=== PATIENT | male | born 1940 | race Caucasian/White ===

== ENCOUNTER → 2018-01-20 10:06 | Outpatient (POV) | payer MEDICARE, OTHER, SELFPAY ==
--- NOTE | 2018-01-20 10:34 | CT_ITS ---
CT chest wo con HISTORY: Shortness of air, interstitial lung disease, follow-up pulmonary nodule ITS.REASON: INTERSTITIAL LUNG DZ ORDERING PHYSICIAN: Ho Luna MD PATIENT AGE: 77 years TECHNIQUE: Axial images obtained. Sagittal and coronal reformatted images are also generated and reviewed. High-resolution axial images also obtained. CONTRAST: None COMPARISON: 01/30/2017 FINDINGS: Prior CABG. No mediastinal or hilar mass or adenopathy. Coronary artery calcifications are present. Centrilobular emphysematous changes are present with hyperinflation and bronchial thickening as before. There is mild peripheral intralobular septal thickening with mild fibrotic changes in the lung bases. Thickening is noted along the major fissure on the right as before. 6 mm plaque-like nodular opacity once again noted in the left lobe unchanged. No bronchiectasis. No pleural effusions. No acute bony anomalies. IMPRESSION: 1. Overall stable CT appearance of the chest with centrilobular emphysema/COPD. 2. Chronic interstitial changes with mild interstitial fibrosis not significant change. 3. No change 6 mm left upper lobe nodular opacity
[2018-01-20 12:18] LABS: Basophils # 0.1 K/mm3 (0-0.2); Basophils % 0.7 % (0.1-2.0); Eosinophils # 0.2 K/mm3 (0.0-0.4); Eosinophils % 2.8 % (0.1-12.0); Hematocrit 47.1 % (42.0-52.0); Hemoglobin 14.9 g/dL (14.1-18.0); Lymphocytes # 1.2 K/mm3 (0.7-4.5); Lymphocytes % 15.6 K/mm3 (10-50); Mean Corpuscular HGB Conc 31.6 g/dL (31.8-35.4); Mean Corpuscular Hemoglobin 29.3 pg (27.0-31.2); Mean Corpuscular Volume 92.8 fl (80-94); Mean Platelet Volume 8.5 fl (7.4-10.4); Monocytes # 0.4 K/mm3 (0.1-1.0); Monocytes % 5.5 % (1.7-9.3); Neutrophils # 5.8 K/mm3 (1.8-7.8); Neutrophils % 75.4 % (37.0-80.0); Platelet Count 289 K/mm3 (142-424); Red Blood Count 5.08 M/mm3 (4.60-6.20); Red Cell Distribution Width 13.8 % (11.5-17.5); White Blood Count 7.7 K/mm3 (4.8-10.8)
[2018-01-21 09:19] LABS: Iron 94 ug/dL (38-169); UIBC 308 ug/dL (111-343)
[2018-01-22 12:01] LABS: Iron Saturation 23 % (15-55)
== END ==
PROVIDERS: Family Provider Family Medicine; Visit Provider Internal Medicine
DX: D50.0 Iron deficiency anemia secondary to blood loss (chronic) (principal); J84.9 Interstitial pulmonary disease, unspecified; R06.02 Shortness of breath
CPT/HCPCS: 36415; 71250; 83550; 85025

== ENCOUNTER → 2018-01-30 09:33 | Outpatient (CLI) | payer MEDICARE, OTHER, SELFPAY ==
[2018-01-30 10:47] VITALS: PULSE 90
[2018-01-30 11:15] VITALS: BP 116/73; PULSE 74; RESP 18; O2SAT 93
[2018-01-30 11:30] VITALS: BP 139/69; PULSE 105; RESP 28; O2SAT 94
== END ==
PROVIDERS: Family Provider Family Medicine; Visit Provider Internal Medicine
DX: J84.9 Interstitial pulmonary disease, unspecified (principal)
CPT/HCPCS: 94060; 94618; 94640; 94726; 94729

== ENCOUNTER → 2018-05-26 10:00 | Outpatient (POV) | payer MEDICARE, OTHER, SELFPAY | PROVIDERS: Family Provider Family Medicine; Visit Provider Internal Medicine | DX: Z00.00 Encounter for general adult medical examination without abnormal findings (principal) ==

== ENCOUNTER 2018-09-08 13:41 | Observation (INO) ==
--- NOTE | 2018-09-08 13:51 | Emergency Department Note ---
ED Disposition Clinical Impression: Rapid atrial fibrillation, Upper GI bleed Disposition: Still a Patient Condition on Discharge: Good Referrals: Blayne Gonzalez MD [Primary Care Provider] - - Critical Care Critical Care Time: No Attestation: On 09/08/18, the high probability of a clinically significant, sudden or life threatening deterioration of the following system(s) required my full and direct attention, intervention and personal management. The time I documented below is in addition to time spent performing reported procedures but includes the following listed in this critical care notation. Medical Decision Making - [place] Inquiry Pt receiving controlled substance: No Vital Signs: 09/08/18 13:51 09/08/18 14:21 09/08/18 14:58 Temperature 97.4 F L Temperature Source Oral Pulse Rate [Left Radial] 86 119 H 122 H Respiratory Rate 18 Blood Pressure [Right Arm] 157/68 H 130/57 L 129/68 Blood Pressure Mean [Right Arm] 97 81 88 Blood Pressure Source [Right Arm] Automatic Cuff Automatic Cuff Automatic Cuff Blood Pressure Position [Right Arm] Sitting Sitting Sitting 02 Sat by Pulse Oximetry 95 93 L 94 L Oxygen Delivery Method Room Air - Lab Data Lab Results 09/08/18 14:00: WBC 9.5, RBC 4.61, Hgb 13.4 L, Hct 41.6 L, MCV 90.3, MCH 29.1, MCHC 32.3, RDW 13.9, Plt Count 388, MPV 8.3, Neut % (Auto) 81.8 H, Lymph % (Auto) 10.0, [place] % (Auto) 4.5, Eos % (Auto) 2.8, Baso % (Auto) 0.9, Neut # (Auto) 7.8, Lymph # (Auto) 1.0, [place] # (Auto) 0.4, Eos # (Auto) 0.3, Baso # (Auto) 0.1 09/08/18 14:00: Sodium 138, Potassium 4.3, Chloride 101, Carbon Dioxide 25, Anion Gap 16.3 H, BUN 18, Creatinine 1.07, Estimated Creat Clear 107, Estimated GFR 67, Est GFR ( Amer) 82, Glucose 127 H, Calcium 9.0, Total Bilirubin 0.4, AST 26, ALT 37, Alkaline Phosphatase 82, Total Protein 6.9, Albumin 3.1 L, Globulin 3.8 H, Albumin/Globulin Ratio 0.8 L 09/08/18 14:01: Stool Occult Blood Positive A Result diagrams: 09/08/18 14:00 09/08/18 14:00 Orders (Tests/Meds): ED MEDICATIONS Generic Name Dose Route Start Last Admin Trade Name Freq PRN Reason Stop Dose Admin Diltiazem HCl 100 mg/ Sodium 100 mls @ 5 mls/hr 09/08/18 14:35 Chloride IV 10/08/18 14:34 .Q20H PETE Protocol Discontinued Medications Generic Name Dose Route Start Last Admin Trade Name Freq PRN Reason Stop Dose Admin Diltiazem HCl 10 mg 09/08/18 14:20 Cardizem 25mg/5ml Vial IV 09/08/18 14:21 ONCE ONE ORDERS Category Date Time Status XR chest portable Stat Exams 09/08/18 14:33 Taken Occult Blood,Stool Stat Lab 09/08/18 14:01 Ordered Troponin I Stat Lab 09/08/18 14:33 Ordered 12-lead EKG Request [ECG Request by /Nse] Stat Y 09/08/18 13:47 Stop Req - Radiology Data #1 Image(s): Chest Image Reviewed: Yes I reviewed the patient's radiology image Scarring left base, no acute disease - ECG Data Tracing #1 EKG interpreted by Gurpreet Saucedo MD: Rhythm: Atrial fibrillation with rapid ventricular response Rate: 126 [place]: normal Ectopy: none Conduction: normal ST Segment Changes: none T Wave Changes: none Q Waves: none No evidence of acute ischemia or injury - Physician Consults Physician Consulted: Carlos Time: 15:02 Reason -: Admission Comment/Response: Agrees to admit the patient to the hospital. We discussed the patient's clinical information, including history, exam, laboratory and radiology results and ED course. Per hospital procedure, I will write temporary bridge inpatient orders on the patient. Specific orders requested by the admitting physician: Continue Cardizem drip. Protonix bolus, but no drip. Follow H&H. General Adult HPI - General Stated complaint: black stool Time Seen by Provider: 09/08/18 13:59 - History of Present Illness HPI narrative: Had an episode of black stool this morning with pink toilet water. No abdominal pain, vomiting, hematemesis. History of a GI bleed about the, states they never figured out where the bleeding was coming from. Currently his only blood thinner is aspirin. - Related Data Home Medications Medication Instructions Recorded Confirmed Atorvastatin Calcium [Atorvastatin 80 mg PO HS 09/08/18 09/08/18 80mg Tab] Famotidine [Acid Controller] 20 mg PO DAILY 09/08/18 09/08/18 Fenofibrate,Micronized [Tricor 134 mg PO DAILY 09/08/18 09/08/18 145mg] Furosemide [Furosemide 20mg Tab] 20 mg PO DAILY 09/08/18 09/08/18 Lisinopril [Lisinopril 10mg Tab] 10 mg PO BID 09/08/18 09/08/18 Loratadine [Allergy] 10 mg PO DAILY 09/08/18 09/08/18 Metoprolol Tartrate [Lopressor 25 mg PO BID 09/08/18 09/08/18 25mg tablet] Omeprazole [Omeprazole 20mg 20 mg PO DAILY 09/08/18 09/08/18 Capsule] Sour Koroma Extract [Tart Koroma 1,200 mg PO DAILY 09/08/18 09/08/18 Extract] dilTIAZem HCl [Cartia Xt] 240 mg PO DAILY 09/08/18 09/08/18 Allergies Allergy/AdvReac Type Severity Reaction Status Date / Time Penicillins Allergy Unknown UNKNOWN Verified 09/08/18 14:36 [facility] History I have reviewed the patient's past medical history: Yes ROS Obtained: Yes All systems reviewed & no additional complaints - Constitutional Constitutional: Denies fever(s) - Cardiovascular Cardiovascular: Denies chest pain - Respiratory Respiratory: Yes dyspnea (Chronic) - Gastrointestinal Gastrointestingal: Reports: black, tarry stools. Denies: abdominal pain, vomiting blood, nausea, vomiting Physical Exam - General General appearance: alert, in no apparent distress - Head Head exam: atraumatic, normocephalic, normal inspection - Eye Eye exam: Present: normal appearance, PERRL, EOMI - ENT ENT exam: Present: mucous membranes moist - Neck Neck exam: Present: normal inspection, full ROM, trachea midline. Absent: meningismus, lymphadenopathy - Chest Chest inspection: Present: normal inspection, symmetric chest wall rise. Absent: tenderness - Respiratory Respiratory exam: Present: normal lung sounds bilaterally. Absent: respiratory distress - Cardiovascular Cardiovascular exam: Present: regular rate. Absent: JVD - Abdominal Exam Abdominal exam: Present: soft, normal bowel sounds. Absent: distention, tenderness, guarding - Rectal Exam comment: Stool dark brown, no masses - Extremities Exam Extremities exam: Present: normal inspection, normal capillary refill - Neurological Exam Neurological exam: Present: alert, oriented X3 - Psychiatric Psychiatric exam: Present: normal affect, normal mood - Skin Skin exam: Present: warm, dry, intact, normal color
[2018-09-08 14:11] LABS: Basophils # 0.1 K/mm3 (0-0.2); Basophils % 0.9 % (0.1-2.0); Eosinophils # 0.3 K/mm3 (0.0-0.4); Eosinophils % 2.8 % (0.1-12.0); Hematocrit 41.6 % (42.0-52.0); Hemoglobin 13.4 g/dL (14.1-18.0); Mean Corpuscular HGB Conc 32.3 g/dL (31.8-35.4); Mean Corpuscular Hemoglobin 29.1 pg (27.0-31.2); Mean Corpuscular Volume 90.3 fl (80-94); Mean Platelet Volume 8.3 fl (7.4-10.4); Monocytes # 0.4 K/mm3 (0.1-1.0); Monocytes % 4.5 % (1.7-9.3); Neutrophils # 7.8 K/mm3 (1.8-7.8); Neutrophils % 81.8 % (37.0-80.0); Platelet Count 388 K/mm3 (142-424); Red Blood Count 4.61 M/mm3 (4.60-6.20); Red Cell Distribution Width 13.9 % (11.5-17.5); White Blood Count 9.5 K/mm3 (4.8-10.8)
[2018-09-08 14:23] LABS: Albumin Level 3.1 gm/dL (3.4-5.0); Albumin/Globulin Ratio 0.8 (1.1-1.8); Anion Gap 16.3 mEq/L (5-15); Bilirubin,Total 0.4 mg/dL (0.2-1.0); Globulin 3.8 gm/dl (1.3-3.2); Potassium 4.3 mmoL/L (3.5-5.1); Total Protein,Serum 6.9 gm/dL (6.4-8.2)
--- NOTE | 2018-09-08 16:28 | History & Physical Report ---
*Admission Date: 09/08/18 *Chief complaint: Blood in stool *History of present illness: 77-year-old male with history of atrial fibrillation presented to the emergency department after having he describes as a very dark loose stool with associated pink discoloration of the toilet water earlier today. Patient was actually in his normal state of health when he felt an urgency to have a bowel movement with stool as previously described. This was followed by rather sudden onset of weakness and malaise. He was advised to come to the emergency department where patient was found to have heme positive stool and atrial fibrillation with rapid ventricular response of 120 bpm. Patient has known atrial fibrillation and has undergone left atrial appendage closure and takes aspirin. He has been placed on a Cardizem drip and currently his heart rate has decreased to high 90s and low 100s. He has been admitted for serial hemoglobins and vital sign monitoring. 4 years ago patient had an admission to the hospital for presumed GI bleed. He underwent his esophagogastroduodenoscopy and colonoscopy without findings of active bleeding. 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 [facility] History I have reviewed the patient's past medical history: Yes Medical History: Reports:: Atrial Fibrillation, Cancer (Prostate), Hyperlipidemia - *Social History Smoking Status: Former smoker Alcohol Intake: never - Psychiatric History Expresses thoughts of harming self/others: None Suicide Plan Description: No Plan Review of Systems - Review of Systems Review of systems:: pertinent systems reviewed and negative unless documented below Meds Home Medications Medication Instructions Recorded Confirmed Type Atorvastatin Calcium [Atorvastatin 80 mg PO HS 09/08/18 09/08/18 History 80mg Tab] Famotidine [Acid Controller] 20 mg PO DAILY 09/08/18 09/08/18 History Fenofibrate,Micronized [Tricor 134 mg PO DAILY 09/08/18 09/08/18 History 145mg] Furosemide [Furosemide 20mg Tab] 20 mg PO DAILY 09/08/18 09/08/18 History Lisinopril [Lisinopril 10mg Tab] 10 mg PO BID 09/08/18 09/08/18 History Loratadine [Allergy] 10 mg PO DAILY 09/08/18 09/08/18 History Metoprolol Tartrate [Lopressor 25 mg PO BID 09/08/18 09/08/18 History 25mg tablet] Omeprazole [Omeprazole 20mg 20 mg PO DAILY 09/08/18 09/08/18 History Capsule] Sour Koroma Extract [Tart Koroma 1,200 mg PO DAILY 09/08/18 09/08/18 History Extract] dilTIAZem HCl [Cartia Xt] 240 mg PO DAILY 09/08/18 09/08/18 History Allergies Allergy/AdvReac Type Severity Reaction Status Date / Time Penicillins Allergy Unknown UNKNOWN Verified 09/08/18 14:36 Exam Vital signs and Labs for Last 24 Hours: Temp Pulse Resp BP Pulse Ox 97.4 F L 109 H 20 112/52 L 94 L 09/08/18 13:51 09/08/18 16:00 09/08/18 16:00 09/08/18 16:00 09/08/18 16:00 Laboratory Results - last 24 hr 09/08/18 14:00: WBC 9.5, RBC 4.61, Hgb 13.4 L, Hct 41.6 L, MCV 90.3, MCH 29.1, MCHC 32.3, RDW 13.9, Plt Count 388, MPV 8.3, Neut % (Auto) 81.8 H, Lymph % (Auto) 10.0, [place] % (Auto) 4.5, Eos % (Auto) 2.8, Baso % (Auto) 0.9, Neut # (Auto) 7.8, Lymph # (Auto) 1.0, [place] # (Auto) 0.4, Eos # (Auto) 0.3, Baso # (Auto) 0.1 09/08/18 14:00: Sodium 138, Potassium 4.3, Chloride 101, Carbon Dioxide 25, Anion Gap 16.3 H, BUN 18, Creatinine 1.07, Estimated Creat Clear 107, Estimated GFR 67, Est GFR ( Amer) 82, Glucose 127 H, Calcium 9.0, Total Bilirubin 0.4, AST 26, ALT 37, Alkaline Phosphatase 82, Total Protein 6.9, Albumin 3.1 L, Globulin 3.8 H, Albumin/Globulin Ratio 0.8 L 09/08/18 14:01: Stool Occult Blood Positive A I & O for Last 24 hours: Intake & Output 10/21/18 10/22/18 10/23/18 10/24/18 11:59 11:59 11:59 11:59 Weight 280 lb Narrative: Patient does not appear to be in any distress. He has mild increase in respiratory rate and is chronically short of breath. Oropharynx is moist. Neck is without lymphadenopathy or jugular venous distention. Lungs are clear to auscultation. Heart rate is irregularly irregular. Abdomen is obese, soft, nontender, nondistended. Patient has warm extremities with intact active range of motion. Assessment and Plan (1) Upper GI bleed Current visit: Yes Status: Acute Category: Medical Code(s): K92.2 - Gastrointestinal hemorrhage, unspecified (2) Rapid atrial fibrillation Current visit: Yes Status: Acute Category: Medical Code(s): I48.91 - Unspecified atrial fibrillation (3) Essential hypertension Current visit: Yes Status: Chronic Category: Medical Code(s): I10 - Essential (primary) hypertension (4) Dyspnea Current visit: Yes Status: Chronic Category: Medical Code(s): R06.00 - Dyspnea, unspecified - Assessment and plan all Dx Assessment and Plan for all problems:: 1. Admit patient for serial H&H's. If patient has significant drop in H&H over night and into the morning, surgical consult will be ordered for EGD. 2. Patient has been given Cardizem bolus and is now on a Cardizem drip for atrial fibrillation. Will increase his metoprolol to 50 mg twice daily. Give additional oral Cardizem as well. Consult cardiology in a.m. if patient remains significantly tachycardic. 1 3. Home medications, decrease dose of lisinopril to avoid hypotension
[2018-09-08 18:46] LABS: Hematocrit 37.2 % (42.0-52.0)
[2018-09-08 19:01] LABS: Hemoglobin 11.9 g/dL (14.1-18.0)
[2018-09-09 06:12] LABS: Basophils % 0.5 % (0.1-2.0); Eosinophils # 0.3 K/mm3 (0.0-0.4); Eosinophils % 3.7 % (0.1-12.0); Hematocrit 35.8 % (42.0-52.0); Hemoglobin 11.3 g/dL (14.1-18.0); Lymphocytes # 1.1 K/mm3 (0.7-4.5); Lymphocytes % 14.2 K/mm3 (10-50); Mean Corpuscular HGB Conc 31.5 g/dL (31.8-35.4); Mean Corpuscular Hemoglobin 28.6 pg (27.0-31.2); Mean Corpuscular Volume 90.7 fl (80-94); Mean Platelet Volume 8.1 fl (7.4-10.4); Monocytes # 0.4 K/mm3 (0.1-1.0); Monocytes % 5.1 % (1.7-9.3); Neutrophils % 76.4 % (37.0-80.0); Platelet Count 298 K/mm3 (142-424); Red Blood Count 3.95 M/mm3 (4.60-6.20); White Blood Count 7.8 K/mm3 (4.8-10.8)
[2018-09-09 06:31] LABS: Anion Gap 10.2 mEq/L (5-15); Calcium 8.5 mg/dL (8.5-10.1); Potassium 4.2 mmoL/L (3.5-5.1)
--- NOTE | 2018-09-09 07:26 | Discharge Summary ---
General - General Admission date:: 09/08/18 HPI HPI: 77-year-old male with history of atrial fibrillation presented to the emergency department after having he describes as a very dark loose stool with associated pink discoloration of the toilet water earlier today. Patient was actually in his normal state of health when he felt an urgency to have a bowel movement with stool as previously described. This was followed by rather sudden onset of weakness and malaise. He was advised to come to the emergency department where patient was found to have heme positive stool and atrial fibrillation with rapid ventricular response of 120 bpm. Patient has known atrial fibrillation and has undergone left atrial appendage closure and takes aspirin. He has been placed on a Cardizem drip and currently his heart rate has decreased to high 90s and low 100s. He has been admitted for serial hemoglobins and vital sign monitoring. 4 years ago patient had an admission to the hospital for presumed GI bleed. He underwent his esophagogastroduodenoscopy and colonoscopy without findings of active bleeding. 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 Hospital Course Hospital Course: Patient was admitted on a Cardizem drip. By the evening of admission this was discontinued as patient's heart rate had decreased to the 70s and 80s and he was given oral Cardizem and metoprolol. Overnight the patient converted to a sinus rhythm which he maintained at discharge. In regards to GI bleeding serial H&H's were performed. Initial hemoglobin was 13.4 which dropped slightly to 11.9 and on the morning of discharge to 11.3. Patient had another bowel movement described as dark brown. Aspirin was held. Diet was advanced. Patient tolerated this. Patient was discharged home and will follow-up in my office in 48 hours for repeat CBC. Suspect source of bleeding was that previously seen AVM in the transverse colon or possibly a diverticular bleed. He will hold aspirin indefinitely Objective Vital signs: Temp Pulse Resp BP Pulse Ox 97.6 F 84 19 148/73 H 98 09/08/18 20:00 09/09/18 06:00 09/08/18 22:00 09/09/18 06:00 09/09/18 06:00 Results Completed studies during hospitalization [Text1]: Laboratory Results - last 48 hr 09/08/18 09/08/18 09/08/18 14:00 14:00 14:00 WBC 9.5 RBC 4.61 Hgb 13.4 L Hct 41.6 L MCV 90.3 MCH 29.1 MCHC 32.3 RDW 13.9 Plt Count 388 MPV 8.3 Neut % (Auto) 81.8 H Lymph % (Auto) 10.0 [place] % (Auto) 4.5 Eos % (Auto) 2.8 Baso % (Auto) 0.9 Neut # (Auto) 7.8 Lymph # (Auto) 1.0 [place] # (Auto) 0.4 Eos # (Auto) 0.3 Baso # (Auto) 0.1 Sodium 138 Potassium 4.3 Chloride 101 Carbon Dioxide 25 Anion Gap 16.3 H BUN 18 Creatinine 1.07 Estimated Creat Clear 107 Estimated GFR 67 Est GFR ( Amer) 82 Glucose 127 H Calcium 9.0 Total Bilirubin 0.4 AST 26 ALT 37 Alkaline Phosphatase 82 Troponin I < 0.02 Total Protein 6.9 Albumin 3.1 L Globulin 3.8 H Albumin/Globulin Ratio 0.8 L Stool Occult Blood 09/08/18 09/08/18 09/09/18 14:01 18:30 05:30 WBC 7.8 RBC 3.95 L Hgb 11.9 L D 11.3 L Hct 37.2 L 35.8 L MCV 90.7 MCH 28.6 MCHC 31.5 L RDW 14.0 Plt Count 298 MPV 8.1 Neut % (Auto) 76.4 Lymph % (Auto) 14.2 [place] % (Auto) 5.1 Eos % (Auto) 3.7 Baso % (Auto) 0.5 Neut # (Auto) 6.0 Lymph # (Auto) 1.1 [place] # (Auto) 0.4 Eos # (Auto) 0.3 Baso # (Auto) 0.0 Sodium Potassium Chloride Carbon Dioxide Anion Gap BUN Creatinine Estimated Creat Clear Estimated GFR Est GFR ( Amer) Glucose Calcium Total Bilirubin AST ALT Alkaline Phosphatase Troponin I Total Protein Albumin Globulin Albumin/Globulin Ratio Stool Occult Blood Positive A 09/09/18 05:30 WBC RBC Hgb Hct MCV MCH MCHC RDW Plt Count MPV Neut % (Auto) Lymph % (Auto) [place] % (Auto) Eos % (Auto) Baso % (Auto) Neut # (Auto) Lymph # (Auto) [place] # (Auto) Eos # (Auto) Baso # (Auto) Sodium 138 Potassium 4.2 Chloride 104 Carbon Dioxide 28 Anion Gap 10.2 BUN 19 H Creatinine 0.92 Estimated Creat Clear 117 Estimated GFR 80 Est GFR ( Amer) 97 Glucose 100 D Calcium 8.5 Total Bilirubin AST ALT Alkaline Phosphatase Troponin I Total Protein Albumin Globulin Albumin/Globulin Ratio Stool Occult Blood Labs on day of discharge: Labs from last 24 hours 09/09/18 09/09/18 09/08/18 05:30 05:30 18:30 WBC 7.8 RBC 3.95 L Hgb 11.3 L 11.9 L D Hct 35.8 L 37.2 L MCV 90.7 MCH 28.6 MCHC 31.5 L RDW 14.0 Plt Count 298 MPV 8.1 Neut % (Auto) 76.4 Lymph % (Auto) 14.2 [place] % (Auto) 5.1 Eos % (Auto) 3.7 Baso % (Auto) 0.5 Neut # (Auto) 6.0 Lymph # (Auto) 1.1 [place] # (Auto) 0.4 Eos # (Auto) 0.3 Baso # (Auto) 0.0 Sodium 138 Potassium 4.2 Chloride 104 Carbon Dioxide 28 Anion Gap 10.2 BUN 19 H Creatinine 0.92 Estimated Creat Clear 117 Estimated GFR 80 Est GFR ( Amer) 97 Glucose 100 D Calcium 8.5 Total Bilirubin AST ALT Alkaline Phosphatase Troponin I Total Protein Albumin Globulin Albumin/Globulin Ratio Stool Occult Blood 09/08/18 09/08/18 09/08/18 14:01 14:00 14:00 WBC RBC Hgb Hct MCV MCH MCHC RDW Plt Count MPV Neut % (Auto) Lymph % (Auto) [place] % (Auto) Eos % (Auto) Baso % (Auto) Neut # (Auto) Lymph # (Auto) [place] # (Auto) Eos # (Auto) Baso # (Auto) Sodium 138 Potassium 4.3 Chloride 101 Carbon Dioxide 25 Anion Gap 16.3 H BUN 18 Creatinine 1.07 Estimated Creat Clear 107 Estimated GFR 67 Est GFR ( Amer) 82 Glucose 127 H Calcium 9.0 Total Bilirubin 0.4 AST 26 ALT 37 Alkaline Phosphatase 82 Troponin I < 0.02 Total Protein 6.9 Albumin 3.1 L Globulin 3.8 H Albumin/Globulin Ratio 0.8 L Stool Occult Blood Positive A 09/08/18 14:00 WBC 9.5 RBC 4.61 Hgb 13.4 L Hct 41.6 L MCV 90.3 MCH 29.1 MCHC 32.3 RDW 13.9 Plt Count 388 MPV 8.3 Neut % (Auto) 81.8 H Lymph % (Auto) 10.0 [place] % (Auto) 4.5 Eos % (Auto) 2.8 Baso % (Auto) 0.9 Neut # (Auto) 7.8 Lymph # (Auto) 1.0 [place] # (Auto) 0.4 Eos # (Auto) 0.3 Baso # (Auto) 0.1 Sodium Potassium Chloride Carbon Dioxide Anion Gap BUN Creatinine Estimated Creat Clear Estimated GFR Est GFR ( Amer) Glucose Calcium Total Bilirubin AST ALT Alkaline Phosphatase Troponin I Total Protein Albumin Globulin Albumin/Globulin Ratio Stool Occult Blood DS: Diagnosis - Discharge Diagnosis (1) Upper GI bleed Status: Acute (2) Rapid atrial fibrillation Status: Acute (3) Essential hypertension Status: Chronic (4) Dyspnea Status: Chronic Discharge Plan - Patient Discharge Instructions ACTIVITY: Continue current activity DIET: continue same diet Patient Instructions: DI for Atrial Fibrillation, DI for Gastrointestinal Bleeding - Follow up Plan Follow up with: Blayne Gonzalez MD [Primary Care Provider] - Disposition: Home, Self-Nursing Home Medications: Home Medications Medication Instructions Recorded Confirmed Type Aspirin [Aspirin 81mg EC Tab] 81 mg PO DAILY 09/08/18 09/08/18 History Atorvastatin Calcium [Atorvastatin 80 mg PO HS 09/08/18 09/08/18 History 80mg Tab] Famotidine [Acid Controller] 20 mg PO DAILY 09/08/18 09/08/18 History Fenofibrate,Micronized [Tricor 134 mg PO DAILY 09/08/18 09/08/18 History 145mg] Furosemide [Furosemide 20mg Tab] 20 mg PO DAILY 09/08/18 09/08/18 History Lisinopril [Lisinopril 10mg Tab] 10 mg PO BID 09/08/18 09/08/18 History Loratadine [Allergy] 10 mg PO DAILY 09/08/18 09/08/18 History Metoprolol Tartrate [Lopressor 25 mg PO BID 09/08/18 09/08/18 History 25mg tablet] Montelukast Sodium [Montelukast 10 mg PO DAILY 09/08/18 09/08/18 History 10mg Tab] Omeprazole [Omeprazole 20mg 20 mg PO DAILY 09/08/18 09/08/18 History Capsule] Sour Koroma Extract [Tart [place] 1,200 mg PO DAILY 09/08/18 09/08/18 History Extract] dilTIAZem HCl [Cartia Xt] 240 mg PO DAILY 09/08/18 09/08/18 History Prescriptions/Medication Reconciliation: Continue Omeprazole [Omeprazole 20mg Capsule] 20 mg PO DAILY Metoprolol Tartrate [Lopressor 25mg tablet] 25 mg PO BID Loratadine [Allergy] 10 mg PO DAILY Lisinopril [Lisinopril 10mg Tab] 10 mg PO BID Furosemide [Furosemide 20mg Tab] 20 mg PO DAILY Fenofibrate,Micronized [Tricor 145mg] 134 mg PO DAILY Famotidine [Acid Controller] 20 mg PO DAILY dilTIAZem HCl [Cartia Xt] 240 mg PO DAILY Sour [place] Extract [Tart Koroma Extract] 1,200 mg PO DAILY Atorvastatin Calcium [Atorvastatin 80mg Tab] 80 mg PO HS Montelukast Sodium [Montelukast 10mg Tab] 10 mg PO DAILY Discontinued Aspirin [Aspirin 81mg EC Tab] 81 mg PO DAILY
--- NOTE | 2018-09-09 08:55 | Pharmacy Consult Notes ---
[facility] Pharmacy VTE Monitoring - Patient Demographics Admission date: 09/08/18 Report Date: 09/09/18 Time: 08:55 Allergies/Adverse Reactions: Patient Allergies Penicillins Allergy (Unknown, Verified 09/08/18 14:36) UNKNOWN Height: 1.85 m Weight: 129.7 kg Patient Problems: Current Active Problems Rapid atrial fibrillation (Acute) Upper GI bleed (Acute) Essential hypertension (Chronic) Dyspnea (Chronic) - VTE Risk Labs: VTE Related Lab Results Hgb 11.3 g/dL (14.1-18.0) L 09/09/18 05:30 Hct 35.8 % (42.0-52.0) L 09/09/18 05:30 Plt Count 298 K/mm3 (142-424) 09/09/18 05:30 BUN 19 mg/dL (7-18) H 09/09/18 05:30 Creatinine 0.92 mg/dL (0.70-1.30) 09/09/18 05:30 Estimated Creat Clear 117 mL/min (0-300) 09/09/18 05:30 Was VTE Risk Assessment Performed: Yes VTE Score: 3 VTE Risk Level: Low Risk - Prophylaxis VTE Prophylaxis Ordered?: Yes Types of VTE Prophylaxis: TEDS Knee High Location of Applied Device: Bilateral Lower Extremeties
== END 2018-09-09 10:12 | disposition home or self-care (01) ==
LOC: ER 13:41 → 2ND 15:13 → ICU 16:08 → INTOOBSV 17:45 → ICU 17:47
PROVIDERS: ADMIT Family Medicine; ATTEND Family Medicine

== ENCOUNTER → 2018-09-29 09:56 | Outpatient (CLI) | payer MEDICARE, OTHER, SELFPAY ==
--- NOTE | 2018-09-29 10:00 | XR_ITS ---
XR chest 2V HISTORY: ITS.REASON: DYSPNEA ON MINIMAL EXERTION ORDERING PHYSICIAN: Blayne Gonzalez MD PATIENT AGE: 77 years COMPARISON: 09/08/2018, 01/20/2018 FINDINGS: There has been a prior median sternotomy with the AVG. Chronic changes are once again noted with increased density along the left heart border consistent with post surgical changes with prominent pericardial fat pad. No definite lobar consolidation or collapse. No evidence of CHF. Faint opacity noted over the lower right chest which may be due to summation density of the overlying rib. IMPRESSION: Postsurgical changes with chronic changes in the lingular region, no change with no acute finding
== END ==
PROVIDERS: PCP Family Medicine; Visit Provider Family Medicine
DX: R06.09 Other forms of dyspnea (principal)
CPT/HCPCS: 71046

== ENCOUNTER → 2018-10-06 08:08 | Outpatient (CLI) | payer MEDICARE, OTHER, SELFPAY | PROVIDERS: PCP Family Medicine; Visit Provider Family Medicine | DX: R06.09 Other forms of dyspnea (principal); I25.10 Atherosclerotic heart disease of native coronary artery without angina pectoris; I50.9 Heart failure, unspecified | CPT/HCPCS: 93306 ==

== ENCOUNTER 2018-10-29 14:26 | Inpatient (IN) ==
--- NOTE | 2018-10-29 15:02 | Emergency Department Note ---
ED Disposition Clinical Impression: Melena Disposition: Admitted as Observation Condition on Discharge: Good Instructions: DI for Gastrointestinal Bleeding Referrals: Blayne Gonzalez MD [Primary Care Provider] - - Critical Care Critical Care Time: No Attestation: On 10/29/18, the high probability of a clinically significant, sudden or life threatening deterioration of the following system(s) required my full and direct attention, intervention and personal management. The time I documented below is in addition to time spent performing reported procedures but includes the following listed in this critical care notation. Medical Decision Making - Medical Records Medical records reviewed: Yes: I reviewed the patient's medical records. - [place] Inquiry Pt receiving controlled substance: No Vital Signs: 10/29/18 14:27 10/29/18 17:08 Temperature 98 F Temperature Source Oral Pulse Rate [Right Radial] 99 H 98 H Respiratory Rate 18 Blood Pressure [Right Arm] 112/66 134/82 Blood Pressure Mean [Right Arm] 81 99 Blood Pressure Source [Right Arm] Automatic Cuff Automatic Cuff Blood Pressure Position [Right Arm] Sitting Sitting 02 Sat by Pulse Oximetry 98 94 L Oxygen Delivery Method Room Air - Lab Data Lab results reviewed: Yes: I reviewed the patient's lab results. Lab Results 10/29/18 14:50: Stool Occult Blood Positive A 10/29/18 15:15: WBC 9.0, RBC 3.85 L, Hgb 10.2 L, Hct 33.0 L, MCV 85.8, MCH 26.5 L, MCHC 30.9 L, RDW 14.7, Plt Count 466 H, MPV 7.9, Neut % (Auto) 78.9, Lymph % (Auto) 10.9, Mitchell % (Auto) 4.4, Eos % (Auto) 5.3, Baso % (Auto) 0.5, Neut # (Auto) 7.1, Lymph # (Auto) 1.0, Mitchell # (Auto) 0.4, Eos # (Auto) 0.5 H, Baso # (Auto) 0.1 10/29/18 15:15: Sodium 139, Potassium 4.0, Chloride 105, Carbon Dioxide 25, Anion Gap 13.0, BUN 11, Creatinine 0.81, Estimated Creat Clear 112, Estimated GFR 93, Est GFR ( Amer) 112, Glucose 121 H, Calcium 8.5, Total Bilirubin 0.3, AST 25, ALT 28, Alkaline Phosphatase 102, Total Protein 6.3 L, Albumin 2.6 L, Globulin 3.7 H, Albumin/Globulin Ratio 0.7 L, Lipase 101 10/29/18 15:15: PT 10.3, INR 1.00 10/29/18 15:30: Blood Type A Positive, Antibody Screen Negative Result diagrams: 10/29/18 15:15 10/29/18 15:15 Orders (Tests/Meds): ED MEDICATIONS Generic Name Dose Route Start Last Admin Trade Name Freq PRN Reason Stop Dose Admin Sodium Chloride 500 mls @ 999 mls/hr 10/29/18 15:00 10/29/18 16:00 Sod Chlor 0.9% 1000ml Bag IV 10/29/18 15:30 999 mls/hr .Q31M PETE Administration Discontinued Medications Generic Name Dose Route Start Last Admin Trade Name Freq PRN Reason Stop Dose Admin Pantoprazole Sodium 40 mg 10/29/18 14:57 10/29/18 16:00 Protonix 40mg Vial IV 10/29/18 14:58 40 mg ONCE ONE Administration Sodium Chloride 8 ml 10/29/18 14:57 10/29/18 16:00 Saline Flush 10ml Syringe IV 10/29/18 14:58 8 ml ONCE ONE Administration ORDERS Category Date Time Status Occult Blood,Stool Stat Lab 10/29/18 14:50 Ordered Urinalysis and Microscopic Stat Lab 10/29/18 17:26 Ordered - CT Data CT Scan: Abdomen, Pelvis Time Received: 17:[address] Reviewed: Yes: I have viewed the radiologist's interpretation Medical Decision Narrative: consult d/w Dr Eng, admit d/w Dr Barnard General Adult HPI - General Chief complaint: GI Bleed Stated complaint: black stool Time Seen by Provider: 10/29/18 14:59 Mode of Arrival: Ambulatory Limitations: No Limitations Description of Symptoms (Recalled from ER Triage Doc. by RN): Pt states that he has had black stool for a couple of days and soreness in upper gastric area. - History of Present Illness HPI narrative: mild epigastric pain ache today and meleanotic stools, not dizzy, no NV, no hx pud, no injury, no fever - Related Data Home Medications Medication Instructions Recorded Confirmed Atorvastatin Calcium [Atorvastatin 80 mg PO HS 09/08/18 10/29/18 80mg Tab] Famotidine [Acid Controller] 20 mg PO DAILY 09/08/18 10/29/18 Fenofibrate,Micronized [Tricor 134 mg PO DAILY 09/08/18 10/29/18 134mg] Furosemide [Furosemide 20mg Tab] 20 mg PO DAILY 09/08/18 10/29/18 Lisinopril [Lisinopril 10mg Tab] 10 mg PO BID 09/08/18 10/29/18 Loratadine [Allergy] 10 mg PO DAILY 09/08/18 10/29/18 Metoprolol Tartrate [Lopressor 25 mg PO BID 09/08/18 10/29/18 25mg tablet] Montelukast Sodium [Montelukast 10 mg PO DAILY 09/08/18 10/29/18 10mg Tab] Omeprazole [Omeprazole 20mg 20 mg PO DAILY 09/08/18 10/29/18 Capsule] Sour Koroma Extract [Tart Koroma 1,200 mg PO DAILY 09/08/18 10/29/18 Extract] dilTIAZem HCl [Cartia Xt] 240 mg PO DAILY 09/08/18 10/29/18 Aspirin [Aspir 81] 81 mg PO DAILY 10/29/18 10/29/18 Allergies Allergy/AdvReac Type Severity Reaction Status Date / Time Penicillins Allergy Unknown UNKNOWN Verified 10/29/18 14:48 [facility] History - Hepatitis A Screen Drug use history?: No High risk sexual behaviors?: No History of sexually transmitted infection?: No Currently employed?: No Childcare worker?: No Do you have indoor plumbing?: Yes Do you have electricity?: Yes Attestation statement:: This patient has been screened for Hepatitis A risk factors. Medical History: Reports:: Atrial Fibrillation, Cancer (Prostate), Hyperlipidemia, Myocardial Infarction Other Surgeries: Yes: CABG - Social History Smoking Status: Former smoker Alcohol Intake: never Occupational Status: retired Housing: house Household Members: spouse - Psychiatric History Expresses thoughts of harming self/others: None Suicide Plan Description: No Plan ROS Obtained: Yes Systems reviewed as appropriate & no additional complaints - Constitutional Constitutional: Denies lethargy - Eyes Eyes: Denies itchy eyes - ENT Ears, Nose, Mouth, and Throat: Denies nasal discharge - Cardiovascular Cardiovascular: Denies chest pain - Respiratory Respiratory: No dyspnea - Gastrointestinal Gastrointestingal: Reports: abdominal pain, black, tarry stools - Musculoskeletal Musculoskeletal: Denies muscle cramps - Integumentary/Breasts Skin/Breast: Denies rash - Neurologic Neurologic: Denies dizziness Physical Exam - General General appearance: alert, in no apparent distress - Head Head exam: atraumatic - Eye Eye exam: Present: PERRL, EOMI - ENT ENT exam: Present: normal exam - Neck Neck exam: Present: normal inspection - Chest Chest inspection: Present: normal inspection - Respiratory Respiratory exam: Present: normal lung sounds bilaterally - Cardiovascular Cardiovascular exam: Present: regular rate, normal rhythm - Abdominal Exam Abdominal exam: Present: soft, tenderness. Absent: rebound - Extremities Exam Extremities exam: Present: full ROM - Back Exam Back exam: Absent: vertebral tenderness - Neurological Exam Neurological exam: Present: alert, oriented X3 - Psychiatric Psychiatric exam: Present: normal affect, normal mood - Skin Skin exam: Present: warm, dry
[2018-10-29 15:27] LABS: Basophils # 0.1 K/mm3 (0-0.2); Basophils % 0.5 % (0.1-2.0); Eosinophils # 0.5 K/mm3 (0.0-0.4); Eosinophils % 5.3 % (0.1-12.0); Hemoglobin 10.2 g/dL (14.1-18.0); Lymphocytes % 10.9 % (10-50); Mean Corpuscular HGB Conc 30.9 g/dL (31.8-35.4); Mean Corpuscular Hemoglobin 26.5 pg (27.0-31.2); Mean Corpuscular Volume 85.8 fl (80-94); Mean Platelet Volume 7.9 fl (7.4-10.4); Monocytes # 0.4 K/mm3 (0.1-1.0); Monocytes % 4.4 % (1.7-9.3); Neutrophils # 7.1 K/mm3 (1.8-7.8); Neutrophils % 78.9 % (37.0-80.0); Platelet Count 466 K/mm3 (142-424); Red Blood Count 3.85 M/mm3 (4.60-6.20); Red Cell Distribution Width 14.7 % (11.5-17.5)
[2018-10-29 15:42] LABS: Albumin Level 2.6 gm/dL (3.4-5.0); Albumin/Globulin Ratio 0.7 (1.1-1.8); Bilirubin,Total 0.3 mg/dL (0.2-1.0); Calcium 8.5 mg/dL (8.5-10.1); Globulin 3.7 gm/dl (1.3-3.2); Total Protein,Serum 6.3 gm/dL (6.4-8.2)
[2018-10-29 15:52] LABS: Prothrombin Time 10.3 seconds (9.4-11.8)
[2018-10-29 17:30] LABS: Microscopic, Urine URINE MICROSCOPIC (MICROSCOPIC)
[2018-10-29 17:44] LABS: Appearance,Urine SL CLOUDY (Clear); Blood, Urine Negative (Negative); Color,Urine YELLOW (Yellow); Glucose,Urine (UA) Negative (Negative); Ketones,Urine Negative (Negative); Leukocyte Esterase,Urine TRACE (Negative); PH,Urine 5.5 (5.0-8.5); Protein,Urine Negative (Negative); Specific Gravity, Urine >= 1.030 (1.005-1.030); Urobilinogen,Urine 0.2 EU/dl (0.2)
[2018-10-29 17:58] LABS: Bilirubin,Urine Negative (Negative)
[2018-10-29 18:09] LABS: Bacteria,Urine 1+ /lpf; Squamous Epithelial Cell,Urine Occasional #/hpf (0-5)
[2018-10-30 06:19] LABS: Basophils # 0.1 K/mm3 (0-0.2); Basophils % 0.7 % (0.1-2.0); Eosinophils # 0.3 K/mm3 (0.0-0.4); Eosinophils % 4.6 % (0.1-12.0); Hematocrit 30.2 % (42.0-52.0); Lymphocytes # 0.9 K/mm3 (0.7-4.5); Lymphocytes % 12.1 % (10-50); Mean Corpuscular HGB Conc 30.2 g/dL (31.8-35.4); Mean Corpuscular Hemoglobin 26.2 pg (27.0-31.2); Mean Corpuscular Volume 86.6 fl (80-94); Monocytes # 0.4 K/mm3 (0.1-1.0); Monocytes % 5.8 % (1.7-9.3); Neutrophils # 5.7 K/mm3 (1.8-7.8); Neutrophils % 76.7 % (37.0-80.0); Platelet Count 383 K/mm3 (142-424); Red Blood Count 3.49 M/mm3 (4.60-6.20); Red Cell Distribution Width 14.8 % (11.5-17.5); White Blood Count 7.4 K/mm3 (4.8-10.8)
--- NOTE | 2018-10-30 06:21 | Consult Report ---
*Admission Date: 10/29/18 *Chief complaint: Dark stools *History of present illness: This is a 77-year-old gentleman seen in consultation after presenting to the emergency department with vague pain/soreness in the upper abdomen and "dark stools" for 3-4 days. No hematemesis. No history of peptic ulcer disease. Review of Systems - Constitutional Denies chills - *Cardiovascular Denies chest pain - *Respiratory Denies cough - *Gastrointestinal Reports abdominal pain, Reports black, tarry stools, Denies vomiting blood, Denies bright, red blood in stools, Denies nausea, Denies vomiting - *Neurologic Denies dizziness [facility] History Medical History: Reports:: Atrial Fibrillation, Cancer (Prostate), Hyperlipid emia, Myocardial Infarction Other Surgeries: Yes: CABG - *Social History Educational Level: Completed High School Smoking Status: Former smoker Alcohol Intake: never Occupational Status: retired Housing: house Household Members: spouse - Psychiatric History Expresses thoughts of harming self/others: None Suicide Plan Description: No Plan Meds Home Medications Medication Instructions Recorded Confirmed Type Atorvastatin Calcium [Atorvastatin 40 mg PO DAILY 09/08/18 10/29/18 History 80mg Tab] Famotidine [Acid Controller] 20 mg PO DAILY 09/08/18 10/29/18 History Fenofibrate,Micronized [Tricor 134 mg PO DAILY 09/08/18 10/29/18 History 134mg] Furosemide [Furosemide 20mg Tab] 20 mg PO DAILY 09/08/18 10/29/18 History Lisinopril [Lisinopril 10mg Tab] 5 mg PO DAILY 09/08/18 10/29/18 History Loratadine [Allergy] 10 mg PO DAILY 09/08/18 10/29/18 History Metoprolol Tartrate [Lopressor 25 mg PO BID 09/08/18 10/29/18 History 25mg tablet] Montelukast Sodium [Montelukast 10 mg PO HS 09/08/18 10/29/18 History 10mg Tab] Omeprazole [Omeprazole 20mg 20 mg PO DAILY 09/08/18 10/29/18 History Capsule] Sour Koroma Extract [Tart Koroma 1,200 mg PO DAILY 09/08/18 10/29/18 History Extract] dilTIAZem HCl [Cartia Xt] 240 mg PO DAILY 09/08/18 10/29/18 History Aspirin [Aspir 81] 81 mg PO DAILY 10/29/18 10/29/18 History Allergies Allergy/AdvReac Type Severity Reaction Status Date / Time Penicillins Allergy Unknown UNKNOWN Verified 10/29/18 14:48 Exam Vital signs and Labs for Last 24 Hours: Temp Pulse Resp BP Pulse Ox 98.6 F 99 H 20 134/58 L 98 10/30/18 04:00 10/30/18 04:00 10/30/18 04:00 10/30/18 04:00 10/30/18 04:00 Laboratory Results - last 24 hr 10/29/18 14:50: Stool Occult Blood Positive A 10/29/18 15:15: WBC 9.0, RBC 3.85 L, Hgb 10.2 L, Hct 33.0 L, MCV 85.8, MCH 26.5 L, MCHC 30.9 L, RDW 14.7, Plt Count 466 H, MPV 7.9, Neut % (Auto) 78.9, Lymph % (Auto) 10.9, [place] % (Auto) 4.4, Eos % (Auto) 5.3, Baso % (Auto) 0.5, Neut # (Auto) 7.1, Lymph # (Auto) 1.0, [place] # (Auto) 0.4, Eos # (Auto) 0.5 H, Baso # (Auto) 0.1 10/29/18 15:15: Sodium 139, Potassium 4.0, Chloride 105, Carbon Dioxide 25, Anion Gap 13.0, BUN 11, Creatinine 0.81, Estimated Creat Clear 112, Estimated GFR 93, Est GFR ( Amer) 112, Glucose 121 H, Calcium 8.5, Total Bilirubin 0.3, AST 25, ALT 28, Alkaline Phosphatase 102, Total Protein 6.3 L, Albumin 2.6 L, Globulin 3.7 H, Albumin/Globulin Ratio 0.7 L, Lipase 101 10/29/18 15:15: PT 10.3, INR 1.00 10/29/18 15:30: Blood Type A Positive, Antibody Screen Negative 10/29/18 17:26: Urine Color Yellow, Urine Appearance Sl cloudy, Urine pH 5.5, Ur Specific [place] >= 1.030, Urine Protein Negative, Urine Glucose (UA) Negative, Urine Ketones Negative, Urine Blood Negative, Urine Nitrate Negative, Urine Bilirubin Negative, Urine Urobilinogen 0.2, Ur Leukocyte Esterase Trace, Urine RBC None, Urine WBC 5-10, Ur Squamous Epith Cells Occasional, Urine Bacteria 1+ I & O for Last 24 hours: Intake & Output 10/27/18 10/28/18 10/29/18 10/30/18 11:59 11:59 11:59 11:59 Output Total 471 / 471 Balance -471 / -471 Weight 276 lb 7 oz - Constitutional no acute distress - *Routine Respiratory Exam Absent: respiratory distress - *Routine Cardiovascular Exam Present: RRR - *Routine Abdominal Exam Present: soft Results - Labs 10/29/18 15:15 10/29/18 15:15 Laboratory Results - last 24 hr 10/29/18 14:50: Stool Occult Blood Positive A 10/29/18 15:15: WBC 9.0, RBC 3.85 L, Hgb 10.2 L, Hct 33.0 L, MCV 85.8, MCH 26.5 L, MCHC 30.9 L, RDW 14.7, Plt Count 466 H, MPV 7.9, Neut % (Auto) 78.9, Lymph % (Auto) 10.9, [place] % (Auto) 4.4, Eos % (Auto) 5.3, Baso % (Auto) 0.5, Neut # (Auto) 7.1, Lymph # (Auto) 1.0, [place] # (Auto) 0.4, Eos # (Auto) 0.5 H, Baso # (Auto) 0.1 10/29/18 15:15: Sodium 139, Potassium 4.0, Chloride 105, Carbon Dioxide 25, Anion Gap 13.0, BUN 11, Creatinine 0.81, Estimated Creat Clear 112, Estimated GFR 93, Est GFR ( Amer) 112, Glucose 121 H, Calcium 8.5, Total Bilirubin 0.3, AST 25, ALT 28, Alkaline Phosphatase 102, Total Protein 6.3 L, Albumin 2.6 L, Globulin 3.7 H, Albumin/Globulin Ratio 0.7 L, Lipase 101 10/29/18 15:15: PT 10.3, INR 1.00 10/29/18 15:30: Blood Type A Positive, Antibody Screen Negative 10/29/18 17:26: Urine Color Yellow, Urine Appearance Sl cloudy, Urine pH 5.5, Ur Specific [place] >= 1.030, Urine Protein Negative, Urine Glucose (UA) Negative, Urine Ketones Negative, Urine Blood Negative, Urine Nitrate Negative, Urine Bilirubin Negative, Urine Urobilinogen 0.2, Ur Leukocyte Esterase Trace, Urine RBC None, Urine WBC 5-10, Ur Squamous Epith Cells Occasional, Urine Bacteria 1+ Assessment and Plan (1) Upper GI bleed Current visit: No Status: Acute Category: Medical Code(s): K92.2 - Gastrointestinal hemorrhage, unspecified Continue PPI Patient has been scheduled for esophagogastroduodenoscopy to be performed this morning. I have discussed the risks and benefits including, but not limited to: Bleeding Infection Damage to surrounding tissue Inherent risks of sedation The patient agrees to proceed.
--- NOTE | 2018-10-30 06:36 | History & Physical Report ---
*Admission Date: 10/29/18 *Chief complaint: Epigastric abdominal pain and black stools *History of present illness: 77-year-old male presented to the emergency department yesterday evening with 3- 4 days of pressure and bloating in the epigastrium with mild discomfort and a change in his stools to black color. Bowel habits also changed alternating between constipation and diarrhea. Patient did not take anything for his GI symptoms. He denies fevers or chills. On evaluation in the emergency department stool was positive for blood. Patient had mild anemia with hemoglobin of 10. This was down from his last documented hemoglobin at [facility]. Patient had a hospitalization within the last 2 months for a lower GI bleed. At that time his symptoms quickly resolved. H&H sofiya. He was advised to stop his aspirin. He tells me he is continuing to take aspirin at this time. Patient has a history of atrial fibrillation but is status post left atrial appendage closure [facility] History Medical History: Reports:: Atrial Fibrillation (Status post left atrial appendage closure), Cancer (Prostate), Hyperlipidemia, Myocardial Infarction Comment: Restrictive lung disease Other Surgeries: Yes: CABG Comment: Left atrial appendage closure - *Social History Educational Level: Completed High School Smoking Status: Former smoker Alcohol Intake: never Occupational Status: retired Housing: house Household Members: spouse - Psychiatric History Expresses thoughts of harming self/others: None Suicide Plan Description: No Plan Review of Systems - Review of Systems Review of systems:: pertinent systems reviewed and negative unless documented below - Constitutional Denies body ache(s), Denies chills - *Cardiovascular Denies chest pain, Denies chest pain at rest - *Respiratory Reports shortness of breath, Denies change in phlegm color, Denies chest congestion, Denies cough - *Gastrointestinal Reports abdominal pain, Reports bloating, Reports change in bowel habits, Reports black, tarry stools - *Genitourinary Denies difficulty urinating - *Musculoskeletal Denies abnormal walking - Integumentary/Breasts Denies hair loss - *Neurologic Denies dizziness Meds Home Medications Medication Instructions Recorded Confirmed Type Atorvastatin Calcium [Atorvastatin 40 mg PO DAILY 09/08/18 10/29/18 History 80mg Tab] Famotidine [Acid Controller] 20 mg PO DAILY 09/08/18 10/29/18 History Fenofibrate,Micronized [Tricor 134 mg PO DAILY 09/08/18 10/29/18 History 134mg] Furosemide [Furosemide 20mg Tab] 20 mg PO DAILY 09/08/18 10/29/18 History Lisinopril [Lisinopril 10mg Tab] 5 mg PO DAILY 09/08/18 10/29/18 History Loratadine [Allergy] 10 mg PO DAILY 09/08/18 10/29/18 History Metoprolol Tartrate [Lopressor 25 mg PO BID 09/08/18 10/29/18 History 25mg tablet] Montelukast Sodium [Montelukast 10 mg PO HS 09/08/18 10/29/18 History 10mg Tab] Omeprazole [Omeprazole 20mg 20 mg PO DAILY 09/08/18 10/29/18 History Capsule] Sour Koroma Extract [Tart Koroma 1,200 mg PO DAILY 09/08/18 10/29/18 History Extract] dilTIAZem HCl [Cartia Xt] 240 mg PO DAILY 09/08/18 10/29/18 History Aspirin [Aspir 81] 81 mg PO DAILY 10/29/18 10/29/18 History Allergies Allergy/AdvReac Type Severity Reaction Status Date / Time Penicillins Allergy Unknown UNKNOWN Verified 10/29/18 14:48 Exam Vital signs and Labs for Last 24 Hours: Temp Pulse Resp BP Pulse Ox 98.6 F 99 H 20 134/58 L 98 10/30/18 04:00 10/30/18 04:00 10/30/18 04:00 10/30/18 04:00 10/30/18 04:00 Laboratory Results - last 24 hr 10/29/18 14:50: Stool Occult Blood Positive A 10/29/18 15:15: WBC 9.0, RBC 3.85 L, Hgb 10.2 L, Hct 33.0 L, MCV 85.8, MCH 26.5 L, MCHC 30.9 L, RDW 14.7, Plt Count 466 H, MPV 7.9, Neut % (Auto) 78.9, Lymph % (Auto) 10.9, [place] % (Auto) 4.4, Eos % (Auto) 5.3, Baso % (Auto) 0.5, Neut # (Auto) 7.1, Lymph # (Auto) 1.0, [place] # (Auto) 0.4, Eos # (Auto) 0.5 H, Baso # (Auto) 0.1 10/29/18 15:15: Sodium 139, Potassium 4.0, Chloride 105, Carbon Dioxide 25, Anion Gap 13.0, BUN 11, Creatinine 0.81, Estimated Creat Clear 112, Estimated GFR 93, Est GFR ( Amer) 112, Glucose 121 H, Calcium 8.5, Total Bilirubin 0.3, AST 25, ALT 28, Alkaline Phosphatase 102, Total Protein 6.3 L, Albumin 2.6 L, Globulin 3.7 H, Albumin/Globulin Ratio 0.7 L, Lipase 101 10/29/18 15:15: PT 10.3, INR 1.00 10/29/18 15:30: Blood Type A Positive, Antibody Screen Negative 10/29/18 17:26: Urine Color Yellow, Urine Appearance Sl cloudy, Urine pH 5.5, Ur Specific [place] >= 1.030, Urine Protein Negative, Urine Glucose (UA) Negative, Urine Ketones Negative, Urine Blood Negative, Urine Nitrate Negative, Urine Bilirubin Negative, Urine Urobilinogen 0.2, Ur Leukocyte Esterase Trace, Urine RBC None, Urine WBC 5-10, Ur Squamous Epith Cells Occasional, Urine Bacteria 1+ I & O for Last 24 hours: Intake & Output 10/27/18 10/28/18 10/29/18 10/30/18 11:59 11:59 11:59 11:59 Output Total 471 / 471 Balance -471 / -471 Weight 276 lb 7 oz Narrative: Patient is awake and alert. ENT exam is grossly normal. Neck is without lymphadenopathy or carotid bruits. Lungs are clear to auscultation. Heart has a regular rate and rhythm. Abdomen is obese, soft, nontender. Bowel sounds are present. Extremities are warm to the touch with active range of motion in all 4 extremities. Neurologic exam is grossly normal Assessment and Plan (1) Upper GI bleed Current visit: No Status: Acute Category: Medical Code(s): K92.2 - Gastrointestinal hemorrhage, unspecified (2) Essential hypertension Current visit: No Status: Chronic Category: Medical Code(s): I10 - Essential (primary) hypertension - Assessment and plan all Dx Assessment and Plan for all problems:: 1. Patient is scheduled for upper GI this morning 2. Quite a bit of adenopathy seen on CT scan. I will discuss CT results with Dr. Subramanian in regards to further imaging
[2018-10-30 06:46] LABS: Anion Gap 10.7 mEq/L (5-15); Calcium 8.2 mg/dL (8.5-10.1); Potassium 3.7 mmoL/L (3.5-5.1)
[2018-10-30 07:08] LABS: Hemoglobin 9.2 g/dL (14.1-18.0)
--- NOTE | 2018-10-30 07:16 | Procedure Note ---
- Procedure: Date: 10/30/18 Procedure Performed:: Esophagogastroduodenoscopy with biopsy Indications:: Upper gastrointestinal hemorrhage Performing Provider:: Erick Eng MD Referring Provider:: Dr. Gonzalez Sedation:: Monitored anesthesia care Procedure:: After informed consent was obtained the patient was taken to the endoscopy suite. Sedation ensued after the patient was transferred to the left lateral decubitus position. Pulse, blood pressure, and oxygen saturation were monitored throughout the procedure. The endoscope was advanced beyond the duodenal bulb. Retroflexion within the gastric lumen was accomplished. The gastroscope was carefully removed and the patient was transferred to recovery in stable condition. Please see "findings" and "specimens" below for detail. 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
--- NOTE | 2018-10-30 07:19 | Progress Note ---
[facility] Anesthesia Checklist - Patient Identification Patient Identification: Arm Band, Verbal (Name & ) - Structural Data Admitted From: Inpatient Planned Operative Procedure/s: egd Verified Documents: History and Physical - NPO Status Verified Time NPO: 00:00 - Additional verifications Patient : No Anesthesia Reactions: No Hx Blood Transfusions: No Blood Transfusion Reaction: No Cephalosporin Allergy: No Previous Colonoscopy: No - Cardiovascular Assessment Heart Sounds: S1 & S2 Pulse Strength: Baseline Pulse Rhythm: Regular Peripheral Edema: No - Airway Assessment C-Spine Mobility Assessed: Yes TMJ Mobility Assessed: Yes Dentition: Good Dentition - Neurological Assessment Level of Consciousness: Awake, Alert, Appropriate Hx Seizures: No Numbness or tingling in extremities: No - Anesthesia Plan Anesthesia Risk discussed: Yes Anesthesia Plan: Verified ASA Class: III Anesthesia Type: [facility] History I have reviewed the patient's past medical history: Yes Medical History: Reports:: Atrial Fibrillation (Status post left atrial appendage closure), Cancer (Prostate), Chronic Obstructive Pulmonary Disease (COPD), Coronary Artery Disease, Cerebrovascular Accident, Gastroesophageal Reflux Disease(GERD), Gastrointestinal Bleed, Hyperlipidemia, Myocardial Infarction Other Surgeries: Yes: CABG Amputation: No Fractures: No - *Social History Educational Level: Completed High School Smoking Status: Former smoker Alcohol Intake: never Occupational Status: retired Housing: house Household Members: spouse - Psychiatric History Expresses thoughts of harming self/others: None Suicide Plan Description: No Plan
--- NOTE | 2018-10-30 08:12 | Pharmacy Consult Notes ---
[facility] Pharmacy VTE Monitoring - Patient Demographics Admission date: 10/29/18 Report Date: 10/30/18 Time: 08:12 Allergies/Adverse Reactions: Patient Allergies Penicillins Allergy (Unknown, Verified 10/29/18 14:48) UNKNOWN Height: 1.8 m Weight: 125.39 kg Patient Problems: Current Active Problems Melena (Acute) - VTE Risk Labs: VTE Related Lab Results Hgb 9.2 g/dL (14.1-18.0) L 10/30/18 05:36 Hct 30.2 % (42.0-52.0) L 10/30/18 05:36 Plt Count 383 K/mm3 (142-424) 10/30/18 05:36 PT 10.3 seconds (9.4-11.8) 10/29/18 15:15 INR 1.00 (0.9-1.1) 10/29/18 15:15 BUN 11 mg/dL (7-18) 10/30/18 05:36 Creatinine 0.88 mg/dL (0.70-1.30) 10/30/18 05:36 Estimated Creat Clear 113 mL/min (50-200) 10/30/18 05:36 Was VTE Risk Assessment Performed: Yes VTE Score: 4 VTE Risk Level: Low Risk - Prophylaxis VTE Prophylaxis Ordered?: Yes Types of VTE Prophylaxis: TEDS Knee High Location of Applied Device: Bilateral Lower Extremeties - VTE Diagnosis Confirmed Treatment or plan recommended: Continue Current Treatment
[2018-10-31 06:06] LABS: Basophils % 0.3 % (0.1-2.0); Eosinophils # 0.3 K/mm3 (0.0-0.4); Eosinophils % 4.9 % (0.1-12.0); Hemoglobin 8.5 g/dL (14.1-18.0); Lymphocytes # 0.7 K/mm3 (0.7-4.5); Lymphocytes % 10.3 % (10-50); Mean Corpuscular HGB Conc 29.4 g/dL (31.8-35.4); Mean Corpuscular Hemoglobin 25.7 pg (27.0-31.2); Mean Corpuscular Volume 87.2 fl (80-94); Mean Platelet Volume 7.8 fl (7.4-10.4); Monocytes # 0.3 K/mm3 (0.1-1.0); Monocytes % 5.1 % (1.7-9.3); Neutrophils # 5.2 K/mm3 (1.8-7.8); Neutrophils % 79.5 % (37.0-80.0); Platelet Count 299 K/mm3 (142-424); Red Cell Distribution Width 14.6 % (11.5-17.5); White Blood Count 6.6 K/mm3 (4.8-10.8)
[2018-10-31 06:08] LABS: Hematocrit 28.8 % (42.0-52.0)
--- NOTE | 2018-10-31 08:01 | Progress Note ---
Internal Medicine - PN: Subj *Date: 10/31/18 *Time: 07:59 Interval history: Patient is having some abdominal discomfort and bloating this morning after breakfast. He did well with his soft diet yesterday evening. Dr. Carrillo was contacted by pathology earlier this morning and the tumor in the stomach is malignant. Exam Vital signs and Labs for Last 24 Hours: Temp Pulse Resp BP Pulse Ox 98.3 F 93 H 16 160/75 H 99 10/31/18 04:00 10/31/18 04:00 10/31/18 04:00 10/31/18 04:00 10/31/18 04:00 Laboratory Results - last 24 hr 10/31/18 05:50: WBC 6.6, RBC 3.30 L, Hgb 8.5 L, Hct 28.8 L, MCV 87.2, MCH 25.7 L , MCHC 29.4 L, RDW 14.6, Plt Count 299, MPV 7.8, Neut % (Auto) 79.5, Lymph % (Auto) 10.3, [place] % (Auto) 5.1, Eos % (Auto) 4.9, Baso % (Auto) 0.3, Neut # (Auto) 5.2, Lymph # (Auto) 0.7, [place] # (Auto) 0.3, Eos # (Auto) 0.3, Baso # (Auto) 0.0 I & O for Last 24 hours: Intake & Output 10/28/18 10/29/18 10/30/18 10/31/18 11:59 11:59 11:59 11:59 Intake Total 800 / 800 1560 / 1560 Output Total 471 / 471 Balance 329 / 329 1560 / 1560 Weight 276 lb 7 oz Narrative: He looks uncomfortable. Oropharynx is moist and clear. Lungs are clear. Heart has a regular rate and rhythm. Abdomen is soft with mild epigastric discomfort. Bowel sounds are present Assessment and Plan (1) Upper GI bleed Current visit: No Status: Acute Category: Medical Code(s): K92.2 - Gastrointestinal hemorrhage, unspecified (2) Essential hypertension Current visit: No Status: Chronic Category: Medical Code(s): I10 - Essential (primary) hypertension (3) Malignant neoplasm of stomach, unspecified Current visit: Yes Status: Acute Category: Medical Code(s): C16.9 - Malignant neoplasm of stomach, unspecified - Assessment and plan all Dx Assessment and Plan for all problems:: Continue proton pump inhibitor. H&H dropped so this will be repeated this evening and transfusion will occur if necessary. Patient is ordered a soft diet but this morning ate a pork chop. I believe this is the likely source of his discomfort. We will encouraged him to stick with softer easily digestible foods.
--- NOTE | 2018-10-31 08:35 | Progress Note ---
Subjective Narrative: Mr. Spicer is a 77-year-old male status post EGD with biopsy. Endoscopic evaluation demonstrated gastric mass; cardia. Possible GE junction extension. Preliminary pathology report consistent with malignancy. Histology type not available for review. Today, doing well. No pain. Hemoglobin and hematocrit relatively stable. Exam Vital signs and Labs for Last 24 Hours: Temp Pulse Resp BP Pulse Ox 98.4 F 104 H 22 134/51 L 96 10/31/18 08:00 10/31/18 08:00 10/31/18 08:00 10/31/18 08:00 10/31/18 08:00 Laboratory Results - last 24 hr 10/31/18 05:50: WBC 6.6, RBC 3.30 L, Hgb 8.5 L, Hct 28.8 L, MCV 87.2, MCH 25.7 L , MCHC 29.4 L, RDW 14.6, Plt Count 299, MPV 7.8, Neut % (Auto) 79.5, Lymph % (Auto) 10.3, [place] % (Auto) 5.1, Eos % (Auto) 4.9, Baso % (Auto) 0.3, Neut # (Auto) 5.2, Lymph # (Auto) 0.7, [place] # (Auto) 0.3, Eos # (Auto) 0.3, Baso # (Auto) 0.0 I & O for Last 24 hours: Intake & Output 10/28/18 10/29/18 10/30/18 10/31/18 11:59 11:59 11:59 11:59 Intake Total 800 / 800 1800 / 1800 Output Total 471 / 471 Balance 329 / 329 1800 / 1800 Weight 125.39 kg - *Routine Respiratory Exam Present: decreased breath sounds, diminished air movement Comments: Slight increase in work of breathing. - *Routine Abdominal Exam Comments: Soft. Nontender. Nondistended. Progress Note: A&P (1) Upper GI bleed Start time: Status: Acute Current Visit: No (2) Essential hypertension Status: Chronic Current Visit: No (3) Malignant neoplasm of stomach, unspecified Status: Acute Current Visit: Yes Assessment and Plan for All Diagnoses:: Endoscopic evaluation noted with EGD and biopsy. Await final pathology report. Continue supportive care. Follow hemoglobin and hematocrit. Follow-up to be established as outpatient with [facility].
[2018-10-31 18:24] LABS: Hemoglobin 8.6 g/dL (14.1-18.0)
[2018-10-31 18:25] LABS: Hematocrit 28.5 % (42.0-52.0)
[2018-11-01 06:13] LABS: Basophils % 0.6 % (0.1-2.0); Eosinophils # 0.2 K/mm3 (0.0-0.4); Eosinophils % 3.9 % (0.1-12.0); Hemoglobin 8.6 g/dL (14.1-18.0); Lymphocytes # 0.9 K/mm3 (0.7-4.5); Lymphocytes % 15.1 % (10-50); Mean Corpuscular HGB Conc 29.9 g/dL (31.8-35.4); Mean Corpuscular Hemoglobin 25.9 pg (27.0-31.2); Mean Corpuscular Volume 86.3 fl (80-94); Mean Platelet Volume 8.1 fl (7.4-10.4); Monocytes # 0.4 K/mm3 (0.1-1.0); Neutrophils # 4.4 K/mm3 (1.8-7.8); Neutrophils % 73.3 % (37.0-80.0); Platelet Count 309 K/mm3 (142-424); Red Blood Count 3.31 M/mm3 (4.60-6.20); Red Cell Distribution Width 14.5 % (11.5-17.5)
[2018-11-01 06:14] LABS: Hematocrit 28.6 % (42.0-52.0)
--- NOTE | 2018-11-01 07:27 | Discharge Summary ---
General - General Admission date:: 10/29/18 Discharge date: 11/01/18 HPI HPI: 77-year-old male presented to the emergency department yesterday evening with 3- 4 days of pressure and bloating in the epigastrium with mild discomfort and a change in his stools to black color. Bowel habits also changed alternating between constipation and diarrhea. Patient did not take anything for his GI symptoms. He denies fevers or chills. On evaluation in the emergency department stool was positive for blood. Patient had mild anemia with hemoglobin of 10. This was down from his last documented hemoglobin at [facility]. Patient had a hospitalization within the last 2 months for a lower GI bleed. At that time his symptoms quickly resolved. H&H sofiya. He was advised to stop his aspirin. He tells me he is continuing to take aspirin at t his time. Patient has a history of atrial fibrillation but is status post left atrial appendage closure Hospital Course Hospital Course: Patient was admitted and Dr. Carrillo of general surgical service was consulted. On the morning of October 30 patient underwent EGD which revealed a mass in the cardia of the stomach with extension to the GE junction. H&H dropped slightly overnight. Post procedurally patient's diet was advanced to a soft diet. The following morning patient's H&H dropped further and he had abdominal pain and bloating. The abdominal pain and bloating occurred after eating a pork chop as part of his "soft diet". Eating actual soft foods was emphasized. Every 12 hours H&H was performed over next 24 hours which showed stabilization of his hemoglobin at 8.6. Patient did not have any further bowel movements. Patient will need referral to the [facility] surgical oncology service once final pathology report is available. After H&H stabilized patient was discharged home. There were no changes in his medications other than minute discontinuation of aspirin. Objective Vital signs: Temp Pulse Resp BP Pulse Ox 98.3 F 90 24 124/48 L 96 11/01/18 04:00 11/01/18 04:00 11/01/18 04:00 11/01/18 04:00 11/01/18 04:00 Results Labs on day of discharge: Labs from last 24 hours 11/01/18 10/31/18 05:50 18:15 WBC 6.0 RBC 3.31 L Hgb 8.6 L 8.6 L Hct 28.6 L 28.5 L MCV 86.3 MCH 25.9 L MCHC 29.9 L RDW 14.5 Plt Count 309 MPV 8.1 Neut % (Auto) 73.3 Lymph % (Auto) 15.1 [place] % (Auto) 7.0 Eos % (Auto) 3.9 Baso % (Auto) 0.6 Neut # (Auto) 4.4 Lymph # (Auto) 0.9 [place] # (Auto) 0.4 Eos # (Auto) 0.2 Baso # (Auto) 0.0 DS: Diagnosis - Discharge Diagnosis (1) Malignant neoplasm of stomach, unspecified Status: Acute (2) Upper GI bleed Status: Acute (3) Essential hypertension Status: Chronic Discharge Plan - Patient Discharge Instructions ACTIVITY: Continue current activity DIET: continue same diet Patient Instructions: Gastrointestinal Bleeding - Follow up Plan Follow up with: Erick Eng MD [Staff Physician] - 11/03/18 Blayne Gonzalez MD [Primary Care Provider] - 11/05/18 Disposition: Home, Self-[facility]it[facility] Medications: Home Medications Medication Instructions Recorded Confirmed Type Atorvastatin Calcium [Atorvastatin 80 mg PO DAILY 09/08/18 10/30/18 History 80mg Tab] Famotidine [Acid Controller] 20 mg PO DAILY 09/08/18 10/29/18 History Fenofibrate,Micronized [Tricor 134 mg PO DAILY 09/08/18 10/29/18 History 134mg] Furosemide [Furosemide 20mg Tab] 20 mg PO DAILYP PRN 09/08/18 10/30/18 History Lisinopril [Lisinopril 10mg Tab] 5 mg PO DAILY 09/08/18 10/29/18 History Metoprolol Tartrate [Lopressor 25 mg PO BID 09/08/18 10/29/18 History 25mg tablet] Montelukast Sodium [Montelukast 10 mg PO HS 09/08/18 10/29/18 History 10mg Tab] Omeprazole [Omeprazole 20mg 20 mg PO DAILY 09/08/18 10/29/18 History Capsule] Sour Koroma Extract [Tart Koroma 1,200 mg PO DAILY 09/08/18 10/29/18 History Extract] dilTIAZem HCl [Cartia Xt] 240 mg PO DAILY 09/08/18 10/29/18 History Aspirin [Aspir 81] 81 mg PO DAILY 10/29/18 10/29/18 History Albuterol Sulfate [Albuterol HFA 2 puffs IH Q4HP PRN 10/30/18 10/30/18 History Inhaler] Loratadine [Allergy] 10 mg PO DAILY 10/30/18 10/30/18 History Prescriptions/Medication Reconciliation: Continue Omeprazole [Omeprazole 20mg Capsule] 20 mg PO DAILY Metoprolol Tartrate [Lopressor 25mg tablet] 25 mg PO BID Lisinopril [Lisinopril 10mg Tab] 5 mg PO DAILY Furosemide [Furosemide 20mg Tab] 20 mg PO DAILYP PRN PRN Reason: FLUID Fenofibrate,Micronized [Tricor 134mg] 134 mg PO DAILY Famotidine [Acid Controller] 20 mg PO DAILY dilTIAZem HCl [Cartia Xt] 240 mg PO DAILY Sour Koroma Extract [Tart Koroma Extract] 1,200 mg PO DAILY Atorvastatin Calcium [Atorvastatin 80mg Tab] 80 mg PO DAILY Montelukast Sodium [Montelukast 10mg Tab] 10 mg PO HS Loratadine [Allergy] 10 mg PO DAILY Albuterol Sulfate [Albuterol HFA Inhaler] 2 puffs IH Q4HP PRN PRN Reason: Shortness Of Breath Or Wheezing Discontinued Aspirin [Aspir 81] 81 mg PO DAILY
== END 2018-11-01 08:53 | disposition home or self-care (01) ==
LOC: ER 14:26 → 2ND 14:26 → OBSVTOIN 19:12 → 2ND 19:13
PROVIDERS: ADMIT Internal Medicine Adolescent Medicine; ATTEND Family Medicine

== ENCOUNTER → 2018-11-13 10:25 | Outpatient (CLI) | payer MEDICARE, OTHER, SELFPAY ==
[2018-11-13 10:58] LABS: Basophils # 0.1 K/mm3 (0-0.2); Basophils % 0.8 % (0.1-2.0); Eosinophils # 0.4 K/mm3 (0.0-0.4); Eosinophils % 4.2 % (0.1-12.0); Hematocrit 32.7 % (42.0-52.0); Lymphocytes # 1.3 K/mm3 (0.7-4.5); Lymphocytes % 13.8 % (10-50); Mean Corpuscular HGB Conc 30.4 g/dL (31.8-35.4); Mean Corpuscular Volume 82.2 fl (80-94); Mean Platelet Volume 8.1 fl (7.4-10.4); Monocytes # 0.5 K/mm3 (0.1-1.0); Monocytes % 5.6 % (1.7-9.3); Neutrophils # 7.1 K/mm3 (1.8-7.8); Neutrophils % 75.5 % (37.0-80.0); Platelet Count 497 K/mm3 (142-424); Red Blood Count 3.98 M/mm3 (4.60-6.20); Red Cell Distribution Width 14.4 % (11.5-17.5); White Blood Count 9.4 K/mm3 (4.8-10.8)
== END ==
PROVIDERS: PCP Family Medicine; Visit Provider Surgery
DX: C16.9 Malignant neoplasm of stomach, unspecified (principal); K92.1 Melena
CPT/HCPCS: 36415; 85025

== ENCOUNTER 2018-12-02 15:10 | Observation (INO) ==
--- NOTE | 2018-12-02 17:32 | History & Physical Report ---
*Admission Date: 12/02/18 *Chief complaint: gastric cancer pain and dehydration *History of present illness: 77 year old male presents for pain management stemming from gastric cancer and dehydration. His oncologist Dr Lira wanted to admit him to [facility] [place] today but he insisted on treatment here at [facility]. This was his first oncology visit for evaluation of chemo/radiation. He has been feeling weak and SOB for the past two weeks. Does report small amounts of coughing without sputum production and nasal drainage/congestion, this is worse of a AM. Denies fever but has had chills. [facility] History Medical History: Reports:: Atrial Fibrillation (Status post left atrial appendage closure), Cancer (Prostate), Chronic Obstructive Pulmonary Disease (COPD), Coronary Artery Disease, Cerebrovascular Accident, Gastroesophageal Reflux Disease(GERD), Gastrointestinal Bleed, Hyperlipidemia, Myocardial Infarction Denies:: Seizures Have you ever received a pneumonia vaccine?: No Have you received a flu vaccine this season?: No Other Medical History: Denies: Blood Transfusion Reaction Other Surgeries: Yes: CABG Amputation: No Fractures: No - *Social History Smoking Status: Former smoker Alcohol Intake: never Occupational Status: retired Housing: house Household Members: spouse Review of Systems - Constitutional Reports chills, Reports fatigue, Reports lack of energy, Reports weakness - ENT Reports nasal congestion, Reports nasal discharge - *Cardiovascular Denies chest pain, Denies generalized swelling - *Respiratory Reports chest congestion, Reports cough, Reports shortness of breath with activity, Denies pain with cough, Denies wheezing - *Gastrointestinal Reports abdominal pain, Reports nausea, Denies vomiting Meds Home Medications Medication Instructions Recorded Confirmed Type Atorvastatin Calcium [Atorvastatin 80 mg PO DAILY 09/08/18 10/30/18 History 80mg Tab] Famotidine [Acid Controller] 20 mg PO DAILY 09/08/18 10/29/18 History Fenofibrate,Micronized [Tricor 134 mg PO DAILY 09/08/18 10/29/18 History 134mg] Furosemide [Furosemide 20mg Tab] 20 mg PO DAILYP PRN 09/08/18 10/30/18 History Lisinopril [Lisinopril 10mg Tab] 5 mg PO DAILY 09/08/18 10/29/18 History Metoprolol Tartrate [Lopressor 25 mg PO BID 09/08/18 10/29/18 History 25mg tablet] Montelukast Sodium [Montelukast 10 mg PO HS 09/08/18 10/29/18 History 10mg Tab] Omeprazole [Omeprazole 20mg 20 mg PO DAILY 09/08/18 10/29/18 History Capsule] Sour Koroma Extract [Tart Koroma 1,200 mg PO DAILY 09/08/18 10/29/18 History Extract] dilTIAZem HCl [Cartia Xt] 240 mg PO DAILY 09/08/18 10/29/18 History Albuterol Sulfate [Albuterol HFA 2 puffs IH Q4HP PRN 10/30/18 10/30/18 History Inhaler] Loratadine [Allergy] 10 mg PO DAILY 10/30/18 10/30/18 History Allergies Allergy/AdvReac Type Severity Reaction Status Date / Time Penicillins Allergy Unknown UNKNOWN Verified 10/29/18 14:48 Exam Vital signs and Labs for Last 24 Hours: Temp Pulse Resp BP Pulse Ox 97.9 F 87 20 128/60 95 12/02/18 16:37 12/02/18 16:37 12/02/18 16:37 12/02/18 16:37 12/02/18 16:37 I & O for Last 24 hours: Intake & Output 11/29/18 11/30/18 12/01/18 12/02/18 23:59 23:59 23:59 23:59 Weight 258 lb 9 oz - *Routine HEENT Exam Head: Present: normocephalic, atraumatic - *Routine Neck Exam Present: supple - *Routine Respiratory Exam Present: CTA bilaterally. Absent: accessory muscle use - *Routine Cardiovascular Exam Present: irregular rhythm - *Routine Abdominal Exam Present: soft, normoactive bowel sounds. Absent: tenderness, distended - *Routine Extremities Exam Absent: cyanosis, edema - *Routine Skin Exam Present: intact, pallor. Absent: cyanosis, mottling - *Routine Neurological Exam Present: alert, oriented X3 - Routine Psychiatric Exam Present: normal affect, normal thought process
[2018-12-03 06:49] LABS: Basophils # 0.1 K/mm3 (0-0.2); Basophils % 0.6 % (0.1-2.0); Eosinophils # 0.5 K/mm3 (0.0-0.4); Eosinophils % 5.4 % (0.1-12.0); Hematocrit 29.7 % (42.0-52.0); Hemoglobin 8.4 g/dL (14.1-18.0); Lymphocytes % 11.2 % (10-50); Mean Corpuscular HGB Conc 28.3 g/dL (31.8-35.4); Mean Corpuscular Hemoglobin 23.5 pg (27.0-31.2); Mean Corpuscular Volume 82.9 fl (80-94); Mean Platelet Volume 8.3 fl (7.4-10.4); Monocytes # 0.6 K/mm3 (0.1-1.0); Monocytes % 6.3 % (1.7-9.3); Neutrophils # 6.9 K/mm3 (1.8-7.8); Neutrophils % 76.5 % (37.0-80.0); Platelet Count 408 K/mm3 (142-424); Red Blood Count 3.58 M/mm3 (4.60-6.20); Red Cell Distribution Width 15.6 % (11.5-17.5)
[2018-12-03 06:56] LABS: Calcium 8.2 mg/dL (8.5-10.1)
--- NOTE | 2018-12-03 07:04 | Progress Note ---
Internal Medicine - PN: Subj *Date: 12/03/18 *Time: 07:02 Interval history: Patient did well yesterday evening and overnight. He has not required any additional pain medication or antiemetics. Exam Vital signs and Labs for Last 24 Hours: Temp Pulse Resp BP Pulse Ox 97.6 F 73 18 112/64 98 12/03/18 04:00 12/03/18 04:00 12/03/18 04:00 12/03/18 04:00 12/03/18 04:00 Laboratory Results - last 24 hr 12/03/18 05:58: WBC 9.0, RBC 3.58 L, Hgb 8.4 L, Hct 29.7 L, MCV 82.9, MCH 23.5 L , MCHC 28.3 L, RDW 15.6, Plt Count 408, MPV 8.3, Neut % (Auto) 76.5, Lymph % (Auto) 11.2, [place] % (Auto) 6.3, Eos % (Auto) 5.4, Baso % (Auto) 0.6, Neut # (Auto) 6.9, Lymph # (Auto) 1.0, [place] # (Auto) 0.6, Eos # (Auto) 0.5 H, Baso # (Auto) 0.1 12/03/18 05:58: Sodium 137, Potassium 4.0, Chloride 102, Carbon Dioxide 28, Anion Gap 11.0, BUN 18, Creatinine 0.86, Estimated Creat Clear 108, Estimated GFR 86, Est GFR ( Amer) 105, Glucose 125 H, Calcium 8.2 L I & O for Last 24 hours: Intake & Output 11/30/18 12/01/18 12/02/18 12/03/18 11:59 11:59 11:59 11:59 Intake Total 360 / 360 Balance 360 / 360 Weight 267 lb 3.204 oz Narrative: He is awake and alert sitting up in bed. He does not appear to be in any distress. Lungs have some faint rales at the right base. Heart has an irregular rate and rhythm. Abdomen is obese and soft. Assessment and Plan (1) Cancer associated pain Current visit: Yes Status: Acute Category: Medical Code(s): G89.3 - Neoplasm related pain (acute) (chronic) (2) Malignant neoplasm of stomach, unspecified Current visit: No Status: Acute Category: Medical Code(s): C16.9 - Malignant neoplasm of stomach, unspecified - Assessment and plan all Dx Assessment and Plan for all problems:: Continue IV fluids and reassess this afternoon for potential discharge.
--- NOTE | 2018-12-03 07:46 | Pharmacy Consult Notes ---
[facility] Pharmacy VTE Monitoring - Patient Demographics Admission date: 12/03/18 Report Date: 12/03/18 Time: 07:46 Allergies/Adverse Reactions: Patient Allergies Penicillins Allergy (Unknown, Verified 10/29/18 14:48) UNKNOWN Height: 1.85 m Weight: 121.2 kg Patient Problems: Current Active Problems Cancer associated pain (Acute) - VTE Risk Labs: VTE Related Lab Results Hgb 8.4 g/dL (14.1-18.0) L 12/03/18 05:58 Hct 29.7 % (42.0-52.0) L 12/03/18 05:58 Plt Count 408 K/mm3 (142-424) 12/03/18 05:58 BUN 18 mg/dL (7-18) 12/03/18 05:58 Creatinine 0.86 mg/dL (0.70-1.30) 12/03/18 05:58 Estimated Creat Clear 108 mL/min (50-200) 12/03/18 05:58 Was VTE Risk Assessment Performed: Yes VTE Score: 8 VTE Risk Level: Moderate Risk Clinical Trial Participant: No - Prophylaxis VTE Prophylaxis Ordered?: Yes Types of VTE Prophylaxis: TEDS Knee High
--- NOTE | 2018-12-04 07:24 | Discharge Summary ---
General - General Admission date:: 12/02/18 Discharge date: 12/04/18 HPI HPI: 77 year old male presents for pain management stemming from gastric cancer and dehydration. His oncologist Dr Lira wanted to admit him to [facility] [place] today but he insisted on treatment here at [facility]. This was his first oncology visit for evaluation of chemo/radiation. He has been feeling weak and SOB for the past two weeks. Does report small amounts of coughing without sputum production and nasal drainage/congestion, this is worse of a AM. Denies fever but has had chills. Hospital Course Hospital Course: Patient was admitted for pain control and control of nausea. Patient required Tylenol to treat leg pain. His pain did not ever become severe enough to take an oral or intravenous narcotics. Neither did he ever request an antiemetic during his hospitalization. He was rehydrated with normal saline over 36-hour period and then discharged home. He will follow-up with Dr. Geronimo of the oncology service next . Objective Vital signs: Temp Pulse Resp BP Pulse Ox 98.0 F 93 H 18 108/52 L 92 L 12/04/18 04:00 12/04/18 04:00 12/04/18 04:00 12/04/18 04:00 12/04/18 04:00 DS: Diagnosis - Discharge Diagnosis (1) Cancer associated pain Status: Acute (2) Malignant neoplasm of stomach, unspecified Status: Acute Discharge Plan - Patient Discharge Instructions ACTIVITY: Continue current activity DIET: continue same diet - Follow up Plan Follow up with: Vee Geronimo MD [Staff Physician] - 12/10/18 Disposition: Home, Self-Residential Medications: Home Medications Medication Instructions Recorded Confirmed Type Atorvastatin Calcium [Atorvastatin 40 mg PO HS 09/08/18 12/03/18 History 80mg Tab] Famotidine [Acid Controller] 20 mg PO DAILY 09/08/18 12/02/18 History Fenofibrate,Micronized [Tricor 134 mg PO DAILY 09/08/18 12/02/18 History 134mg] Furosemide [Furosemide 20mg Tab] 20 mg PO DAILYP PRN 09/08/18 12/02/18 History Lisinopril [Lisinopril 10mg Tab] 5 mg PO DAILY 09/08/18 12/02/18 History Metoprolol Tartrate [Lopressor 25 mg PO BID 09/08/18 12/02/18 History 25mg tablet] Montelukast Sodium [Montelukast 10 mg PO HS 09/08/18 12/02/18 History 10mg Tab] Omeprazole [Omeprazole 20mg 20 mg PO DAILY 09/08/18 12/02/18 History Capsule] Sour Koroma Extract [Tart Koroma 1,200 mg PO DAILY 09/08/18 12/02/18 History Extract] dilTIAZem HCl [Cartia Xt] 240 mg PO DAILY 09/08/18 12/02/18 History Loratadine [Allergy] 10 mg PO DAILY 10/30/18 12/02/18 History Prescriptions/Medication Reconciliation: No Action Omeprazole [Omeprazole 20mg Capsule] 20 mg PO DAILY Metoprolol Tartrate [Lopressor 25mg tablet] 25 mg PO BID Lisinopril [Lisinopril 10mg Tab] 5 mg PO DAILY Furosemide [Furosemide 20mg Tab] 20 mg PO DAILYP PRN PRN Reason: FLUID Fenofibrate,Micronized [Tricor 134mg] 134 mg PO DAILY Famotidine [Acid Controller] 20 mg PO DAILY dilTIAZem HCl [Cartia Xt] 240 mg PO DAILY Sour Koroma Extract [Tart Koroma Extract] 1,200 mg PO DAILY Atorvastatin Calcium [Atorvastatin 80mg Tab] 40 mg PO HS Montelukast Sodium [Montelukast 10mg Tab] 10 mg PO HS Loratadine [Allergy] 10 mg PO DAILY
== END 2018-12-04 09:28 | disposition home or self-care (01) ==
LOC: 2ND
PROVIDERS: ADMIT Family Medicine; ATTEND Family Medicine
CPT/HCPCS: 36415; 71020; 71046; 80048; 85025; 94761; G0378; J1642

== ENCOUNTER 2018-12-10 12:40 | Outpatient (CLI) | payer MEDICARE, OTHER, SELFPAY ==
[2018-12-10 12:49] VITALS: BMI 34.8
[2018-12-10 13:19] LABS: Basophils # 0.1 K/mm3 (0-0.2); Basophils % 0.7 % (0.1-2.0); Eosinophils # 0.5 K/mm3 (0.0-0.4); Eosinophils % 4.2 % (0.1-12.0); Hematocrit 31.6 % (42.0-52.0); Lymphocytes # 1.1 K/mm3 (0.7-4.5); Lymphocytes % 9.5 % (10-50); Mean Corpuscular HGB Conc 28.4 g/dL (31.8-35.4); Mean Corpuscular Hemoglobin 23.1 pg (27.0-31.2); Mean Corpuscular Volume 81.3 fl (80-94); Mean Platelet Volume 7.5 fl (7.4-10.4); Monocytes # 0.6 K/mm3 (0.1-1.0); Neutrophils # 9.1 K/mm3 (1.8-7.8); Neutrophils % 80.6 % (37.0-80.0); Platelet Count 456 K/mm3 (142-424); Red Blood Count 3.88 M/mm3 (4.60-6.20); Red Cell Distribution Width 16.2 % (11.5-17.5); White Blood Count 11.3 K/mm3 (4.8-10.8)
[2018-12-10 13:57] LABS: Alanine Aminotransferase 23 U/L (12-78); Albumin Level 2.4 gm/dL (3.4-5.0); Albumin/Globulin Ratio 0.6 (1.1-1.8); Alkaline Phosphatase 119 U/L (46-116); Anion Gap 13.3 mEq/L (5-15); Aspartate Amino Transferase 22 U/L (15-37); Bilirubin,Total 0.2 mg/dL (0.2-1.0); Blood Urea Nitrogen 16 mg/dL (7-18); Carbon Dioxide 25 mmol/L (21.0-32.0); Chloride 103 mmol/L (98-107); Creatinine Clearance Estimated 107 mL/min (50-200); Creatinine,Serum 0.73 mg/dL (0.70-1.30); Estimated Glomerular Filt Rate 104 ml/min (>60); Ferritin 12 ng/mL (8-388); GFR (African American) 126 ML/MIN (>60); Globulin 3.8 gm/dl (1.3-3.2); Glucose 105 mg/dL (74-106); Potassium 4.3 mmoL/L (3.5-5.1); Sodium 137 mmol/L (136-145); Total Protein,Serum 6.2 gm/dL (6.4-8.2)
[2018-12-11 08:30] LABS: Iron 26 ug/dL (38-169); UIBC 298 ug/dL (111-343)
[2018-12-11 17:14] LABS: Iron Saturation 8 % (15-55)
--- NOTE | 2018-12-14 16:54 | DIET.NUTRFU ---
Nutrition referral from Chemotherapy. Patient with dx of gasric cancer and will be undergoing infusion treatments. Spoke with over the phone. Patient has been following low fat, low salt diet for many years. He has hx of obesity, copd, cad, gerd, cva, hlp and mi. He has lost weight approx 20 lbs since august 2018, 3 months ago. This was unintentional weight loss. He has a diminished appetite. He still enjoys the taste of food. He has intermittent diarrhea and constipation. is supplementing his diet with one Ensure each day, and she is making him milkshakes one daily and adding ensure powder to this. He takes a mvi daily. Recommendations: Patient may be developing lactose intolerance and is having diarrhea with milkshakes. It is suggested the milkshakes be prepared with lactate free milk or soy milk. Increase protein in diet with protein powder added to shakes, soups and puddings. High protein snacks suggestions made. Increase fiber cereals and dried fruits with plenty of liquids for constipation. Hot beverages for constipation. encouraged to contact dietitian for further assistance.
== END 2018-12-10 13:55 | disposition home or self-care (01) ==
LOC: INF 12:46
PROVIDERS: Visit Provider Internal Medicine Medical Oncology
DX: Z45.2 Encounter for adjustment and management of vascular access device (principal); C16.9 Malignant neoplasm of stomach, unspecified
CPT/HCPCS: 80053; 82728; 83540; 83550; 85025; J1642

== ENCOUNTER 2018-12-17 09:40 | Outpatient (CLI) | payer MEDICARE, OTHER, SELFPAY ==
[2018-12-17 09:45] VITALS: BMI 35.6
[2018-12-17 10:11] LABS: Basophils # 0.1 K/mm3 (0-0.2); Basophils % 0.7 % (0.1-2.0); Eosinophils # 0.3 K/mm3 (0.0-0.4); Eosinophils % 2.9 % (0.1-12.0); Hematocrit 29.4 % (42.0-52.0); Hemoglobin 8.5 g/dL (14.1-18.0); Lymphocytes # 0.9 K/mm3 (0.7-4.5); Lymphocytes % 7.9 % (10-50); Mean Corpuscular HGB Conc 28.9 g/dL (31.8-35.4); Mean Corpuscular Hemoglobin 23.5 pg (27.0-31.2); Mean Corpuscular Volume 81.3 fl (80-94); Mean Platelet Volume 9.1 fl (7.4-10.4); Monocytes # 0.6 K/mm3 (0.1-1.0); Neutrophils # 9.5 K/mm3 (1.8-7.8); Neutrophils % 83.5 % (37.0-80.0); Platelet Count 320 K/mm3 (142-424); Red Blood Count 3.62 M/mm3 (4.60-6.20); White Blood Count 11.3 K/mm3 (4.8-10.8)
[2018-12-17 11:50] VITALS: BP 116/55; PULSE 110; RESP 20; TEMP 36.3; O2SAT 90
[2018-12-17 12:05] VITALS: BP 111/84; PULSE 108; RESP 18
[2018-12-17 12:20] VITALS: BP 105/47; PULSE 116; RESP 18
[2018-12-17 12:35] VITALS: BP 78/49; PULSE 107; RESP 18
[2018-12-17 12:50] VITALS: BP 80/34; PULSE 110; RESP 18
[2018-12-17 12:55] VITALS: BP 136/58; PULSE 105; RESP 20
== END 2018-12-17 13:20 | disposition home or self-care (01) ==
LOC: INF 09:43
PROVIDERS: Visit Provider Internal Medicine Medical Oncology
DX: Z51.11 Encounter for antineoplastic chemotherapy (principal); C16.9 Malignant neoplasm of stomach, unspecified
CPT/HCPCS: 85025; 96413; J9267; Q0166

== ENCOUNTER 2018-12-23 10:30 | Outpatient (CLI) | payer MEDICARE, OTHER, SELFPAY ==
[2018-12-23 10:45] VITALS: BP 144/80; PULSE 101; RESP 18; O2SAT 91
[2018-12-23 10:51] VITALS: BMI 34.2
[2018-12-23 11:15] VITALS: BP 118/65; PULSE 109; RESP 18
[2018-12-23 11:38] LABS: Basophils % 0.4 % (0.1-2.0); Eosinophils # 0.3 K/mm3 (0.0-0.4); Eosinophils % 3.3 % (0.1-12.0); Hematocrit 25.1 % (42.0-52.0); Lymphocytes # 0.7 K/mm3 (0.7-4.5); Lymphocytes % 7.6 % (10-50); Mean Corpuscular HGB Conc 28.7 g/dL (31.8-35.4); Mean Corpuscular Hemoglobin 23.2 pg (27.0-31.2); Mean Corpuscular Volume 80.9 fl (80-94); Mean Platelet Volume 8.4 fl (7.4-10.4); Monocytes # 0.2 K/mm3 (0.1-1.0); Monocytes % 2.6 % (1.7-9.3); Neutrophils # 7.6 K/mm3 (1.8-7.8); Neutrophils % 86.2 % (37.0-80.0); Platelet Count 271 K/mm3 (142-424); Red Blood Count 3.11 M/mm3 (4.60-6.20); Red Cell Distribution Width 17.5 % (11.5-17.5); White Blood Count 8.8 K/mm3 (4.8-10.8)
[2018-12-23 11:42] LABS: Hemoglobin 7.2 g/dL (14.1-18.0)
[2018-12-23 11:44] LABS: MANUAL DIFFERENTIAL MANUAL DIFFERENTIAL (MANUAL DIFF)
[2018-12-23 12:15] LABS: Eosinophils % 3 % (0-3); Lymphocytes % 5 % (10-50); Monocytes % 2 % (2-9); Neutrophils % 90 % (42-76); Platelet Estimate Normal; Total Cells Counted 100
[2018-12-23 12:17] LABS: Anisocytosis 1+; Hypochromasia 1+; Microcytosis 1+
[2018-12-23 12:20] VITALS: BP 116/70; PULSE 104
--- NOTE | 2018-12-23 14:33 | PC.NURSE ---
Notification result for patient's h/h. Dr. Geronimo notified, order obtained for t&c for 2 units prbc's. He will have transfusion on 12-24-18. PAC left accessed, dressing applied, capped with heparin.
== END 2018-12-23 12:40 | disposition home or self-care (01) ==
LOC: INF 10:30
PROVIDERS: Visit Provider Internal Medicine Medical Oncology
DX: D50.0 Iron deficiency anemia secondary to blood loss (chronic) (principal); K92.2 Gastrointestinal hemorrhage, unspecified; T45.4X5A Adverse effect of iron and its compounds, initial encounter
CPT/HCPCS: 85007; 85025; 86850; 96365; J1439; J1642

== ENCOUNTER 2018-12-24 08:45 | Outpatient (CLI) | payer MEDICARE, OTHER, SELFPAY ==
[2018-12-24] VITALS (22 sets, daily range): BP systolic 108–142; BP diastolic 58–81; PULSE 89–111; RESP 18–26; TEMP 36.7–36.9; O2SAT 92–95; BMI 35.6
--- NOTE | 2018-12-24 12:45 | PC.NURSE ---
pt med with oxycodone 5mg for chronic pain/pt's usual routine scheduled medication
--- NOTE | 2018-12-24 15:44 | PC.NURSE ---
12/24/18 0950 Transfusion of 1st unit of blood initiated. Lungs diminished bilateral bases. Pt short of breath on arrival to infusion unit. Generalized weakness. O2 sats 87% on room air. Pt reports uses O2 at 2lpm per NC at night. O2 applied at 2lpm per NC with sats up to 92-93% on oxygen. Skin pale, but warm/dry to touch. VSS/pt is somewhat tachycardic but stable. Pt was instructed verbally and handout given regarding s/s of transfusion reaction prior to initiation of blood transfusion. 12/24/18 1210 1st unit of blood complete at this time. Pt rickie very well with no s/s transfusion reaction noted. VSS. Lungs remain diminished b/l bases. Pt short of breath with exertion, but some improvement from baseline/arrival to infusion dept this am.
--- NOTE | 2018-12-24 15:55 | PC.NURSE ---
1227 pt med with routine Diltiazem, Metoprolol, Lasix, Benadryl, Oxycodone per MD order. Pt states these medications due.
--- NOTE | 2018-12-24 15:56 | PC.NURSE ---
12/24/18 1305 Transfusion of 2nd unit of blood initiated at this time. VSS, pt remains somewhat tachycardic at times but improved from baseline/arrival to infusion department, as well as improvement of shortness of breath. Does remain short of breath with exertion, but improved somewhat. Lungs remain diminished b/l bases, with no crackles/rales ausculated. Pt denies c/o at this time. No s/s transfusion reaction noted. Pt resting in bed. Talkative and pleasant with staff. 12/24/18 1525 2nd unit of blood complete. VSS. Lungs diminished b/l bases, no rales, pt remains short of breath with exertion. Denies c/o. No s/s transfusion reaction noted.
[2018-12-24 16:43] LABS: Hematocrit 30.1 % (42.0-52.0); Hemoglobin 9.4 g/dL (14.1-18.0)
--- NOTE | 2018-12-24 16:47 | PC.NURSE ---
12/24/18 1625 1 hour post transfusion H&H drawn at this time. R portacath with good blood return, flushes easily. Pt discharged home/stable. States he feels better . Less shortness of breath, but does remain short of breath with exertion, lungs diminished b/l bases, no rales. VSS. No s/s reaction noted. Reviewed s/s transfusion reaction/pt has handout to take home with same information/verbs understanding.
== END 2018-12-24 16:25 | disposition home or self-care (01) ==
LOC: INF 08:59
PROVIDERS: Visit Provider Internal Medicine Medical Oncology
DX: D64.9 Anemia, unspecified (principal)
CPT/HCPCS: 36430; 85014; 85018; J1642; P9016

== ENCOUNTER 2018-12-25 13:05 | Outpatient (CLI) | payer MEDICARE, OTHER, SELFPAY ==
[2018-12-25 14:10] VITALS: BP 122/62; PULSE 84; RESP 28; O2SAT 93
[2018-12-25 14:25] VITALS: BP 119/56; PULSE 92; RESP 26
[2018-12-25 14:40] VITALS: BP 113/62; PULSE 93; RESP 26
[2018-12-25 14:55] VITALS: BP 127/68; PULSE 96; RESP 24
[2018-12-25 15:10] VITALS: BP 125/67; PULSE 92; RESP 24
[2018-12-25 15:25] VITALS: BP 148/97; PULSE 94; RESP 24
== END 2018-12-25 15:45 | disposition home or self-care (01) ==
LOC: INF 13:17
PROVIDERS: Visit Provider Internal Medicine Medical Oncology
DX: Z51.11 Encounter for antineoplastic chemotherapy (principal); C16.9 Malignant neoplasm of stomach, unspecified
CPT/HCPCS: 96413; J9267; Q0166

== ENCOUNTER 2018-12-30 10:20 | Outpatient (CLI) | payer MEDICARE, OTHER, SELFPAY ==
[2018-12-30 10:33] VITALS: BMI 35.7
[2018-12-30 10:57] LABS: Basophils % 0.4 % (0.1-2.0); Eosinophils # 0.1 K/mm3 (0.0-0.4); Eosinophils % 1.8 % (0.1-12.0); Hematocrit 33.9 % (42.0-52.0); Hemoglobin 10.4 g/dL (14.1-18.0); Lymphocytes # 0.3 K/mm3 (0.7-4.5); Lymphocytes % 7.4 % (10-50); Mean Corpuscular HGB Conc 30.7 g/dL (31.8-35.4); Mean Corpuscular Hemoglobin 26.3 pg (27.0-31.2); Mean Corpuscular Volume 85.7 fl (80-94); Mean Platelet Volume 8.2 fl (7.4-10.4); Monocytes # 0.1 K/mm3 (0.1-1.0); Monocytes % 2.2 % (1.7-9.3); Neutrophils # 3.9 K/mm3 (1.8-7.8); Neutrophils % 88.2 % (37.0-80.0); Platelet Count 246 K/mm3 (142-424); Red Blood Count 3.96 M/mm3 (4.60-6.20); Red Cell Distribution Width 21.8 % (11.5-17.5); White Blood Count 4.4 K/mm3 (4.8-10.8)
[2018-12-30 11:03] LABS: MANUAL DIFFERENTIAL MANUAL DIFFERENTIAL (MANUAL DIFF)
[2018-12-30 11:20] VITALS: BP 133/77; PULSE 118; RESP 28; TEMP 36.2; O2SAT 89
[2018-12-30 11:23] LABS: Eosinophils % 1 % (0-3); Lymphocytes % 8 % (10-50); Monocytes % 1 % (2-9); Neutrophils % 83 % (42-76); Total Cells Counted 100
[2018-12-30 11:24] LABS: Stomatocytes 2+
[2018-12-30 11:25] LABS: Ovalocytes 1+
[2018-12-30 11:26] LABS: Anisocytosis 2+; Poikilocytosis 3+
[2018-12-30 11:27] LABS: Macrocytosis 1+; Microcytosis 1+; Platelet Estimate Normal
[2018-12-30 11:50] VITALS: BP 138/83; PULSE 116; RESP 28; TEMP 36.2
== END 2018-12-30 12:05 | disposition home or self-care (01) ==
LOC: INF 10:25
PROVIDERS: Visit Provider Internal Medicine Medical Oncology
DX: D50.0 Iron deficiency anemia secondary to blood loss (chronic) (principal); C16.9 Malignant neoplasm of stomach, unspecified; T45.4X5A Adverse effect of iron and its compounds, initial encounter
CPT/HCPCS: 85007; 85025; 96365; J1439; J1642

== ENCOUNTER 2018-12-31 13:22 | Outpatient (CLI) | payer MEDICARE, OTHER, SELFPAY ==
[2018-12-31] VITALS (7 sets, daily range): BP systolic 118–137; BP diastolic 55–67; PULSE 73–78; RESP 22; TEMP 36.3; O2SAT 89–90
== END 2018-12-31 15:40 | disposition home or self-care (01) ==
LOC: INF 13:22
PROVIDERS: Visit Provider Internal Medicine Medical Oncology
DX: Z51.11 Encounter for antineoplastic chemotherapy (principal); C16.9 Malignant neoplasm of stomach, unspecified
CPT/HCPCS: 96413; 96415; J9267; Q0166

== ENCOUNTER 2019-01-01 17:32 | Inpatient (IN) | payer MEDICARE, OTHER, SELFPAY ==
[2019-01-01] VITALS (19 sets, daily range): BP systolic 103–192; BP diastolic 55–136; PULSE 96–122; RESP 16–40; TEMP 36.3–36.9; O2SAT 66–100; BMI 34.2; BMI 34.4
[2019-01-01 17:36] LABS: ABG Base Excess -1.9 mmol/L (-2.4-2.3); ABG Oxygen Saturation 82 % (90-100); ABG PCO2 46.5 mmhg (35.0-45.0); ABG PH 7.33 mmol/L (7.35-7.45); ABG PO2 50.2 mmhg (80-100); ABG TCO2 25.4 mmhg (23-27)
[2019-01-01 17:37] LABS: Oxygen 15 LPM %
[2019-01-01 17:38] LABS: Allen's Test Acceptable
--- NOTE | 2019-01-01 17:39 | HMH.EDGENADL ---
ED Disposition Clinical Impression: Acute respiratory failure with hypoxia Bilateral pneumonia Qualifiers: Pneumonia type: due to unspecified organism Lung location: unspecified part of lung Qualified Code(s): J18.9 - Pneumonia, unspecified organism Pulmonary emboli Qualifiers: Pulmonary embolism type: unspecified Chronicity: acute Acute cor pulmonale presence: with acute cor pulmonale Qualified Code(s): I26.09 - Other pulmonary embolism with acute cor pulmonale Disposition: Admitted As Inpatient Condition on Discharge: Serious - Critical Care Critical Care Time: Yes Attestation: On 01/01/19, the high probability of a clinically significant, sudden or life threatening deterioration of the following system(s) required my full and direct attention, intervention and personal management. The time I documented below is in addition to time spent performing reported procedures but includes the following listed in this critical care notation. Total Critical Care Time: 50 Vital system(s) involved:: Respiratory Failure My critical care processes included: Assessment & monitoring of V/S, Initial and Re-exams, Data Review/Interpretation, Coordinating Care, Medication Orders and management, Documentation Medical Decision Making - [place] Inquiry Pt receiving controlled substance: No Vital Signs: 01/01/19 17:32 01/01/19 18:00 01/01/19 18:12 Temperature Temperature Source Pulse Rate [Left Radial] 117 H 110 H 105 H Respiratory Rate 40 H 36 H Blood Pressure [Right Arm] 192/136 H 153/100 H 114/68 Blood Pressure Mean [Right Arm] 154 117 83 Blood Pressure Source [Right Arm] Automatic Cuff Automatic Cuff Automatic Cuff Blood Pressure Position [Right Arm] Sitting Sitting Sitting 02 Sat by Pulse Oximetry 66 L 97 97 Oxygen Delivery Method Simple Mask BiPAP Oxygen Flow Rate (LPM) 01/01/19 18:16 01/01/19 18:25 01/01/19 18:30 Temperature 98.2 F Temperature Source Oral Pulse Rate [Left Radial] 108 H Respiratory Rate 36 H 36 H Blood Pressure [Right Arm] 103/74 L 126/76 Blood Pressure Mean [Right Arm] 83 92 Blood Pressure Source [Right Arm] Automatic Cuff Automatic Cuff Blood Pressure Position [Right Arm] Sitting Sitting 02 Sat by Pulse Oximetry 99 91 L 89 L Oxygen Delivery Method BiPAP Non-Rebreather Vapotherm Oxygen Flow Rate (LPM) 36 01/01/19 18:33 01/01/19 19:19 01/01/19 20:22 Temperature Temperature Source Pulse Rate [Left Radial] 110 H 117 H 122 H Respiratory Rate 38 H 28 H 18 Blood Pressure [Right Arm] 112/82 136/61 141/65 H Blood Pressure Mean [Right Arm] 92 86 90 Blood Pressure Source [Right Arm] Automatic Cuff Automatic Cuff Automatic Cuff Blood Pressure Position [Right Arm] Sitting Sitting Sitting 02 Sat by Pulse Oximetry 96 87 L 98 Oxygen Delivery Method Non-Rebreather Vapotherm BiPAP Oxygen Flow Rate (LPM) - Lab Data Lab Results 01/01/19 17:34: O2 % 15 lpm, ABG pH 7.33 L, ABG pCO2 46.5 H, ABG pO2 50.2 L, ABG HCO3 24.0, ABG Total CO2 25.4, ABG O2 Saturation 82 L*, ABG Base Excess -1.9, Andreas Test Acceptable 01/01/19 17:45: WBC 10.3 D, RBC 4.29 L, Hgb 11.1 L, Hct 37.6 L, MCV 87.6, MCH 25.7 L, MCHC 29.4 L, RDW 21.7 H, Plt Count 352 D, MPV 8.2, Neut % (Auto) 92.2 H, Lymph % (Auto) 3.9 L, [place] % (Auto) 3.4, Eos % (Auto) 0.4, Baso % (Auto) 0.3, Neut # (Auto) 9.5 H, Lymph # (Auto) 0.4 L, [place] # (Auto) 0.3, Eos # (Auto) 0.0, Baso # (Auto) 0.0, Total Counted 100, Neutrophils % (Manual) 87 H, Band Neutrophils % 9.0 H, Lymphocytes % (Manual) 3 L, Monocytes % (Manual) 1 L, Platelet Estimate Normal, Hypochromasia 3+, Anisocytosis 2+, Rouleaux 2+ 01/01/19 17:45: Sodium 137, Potassium 4.3, Chloride 100, Carbon Dioxide 26, Anion Gap 15.3 H, BUN 17, Creatinine 0.86, Estimated Creat Clear 105, Estimated GFR 86, Est GFR ( Amer) 105, Glucose 276 H, Calcium 8.2 L, Total Bilirubin 0.6, AST 19, ALT 31, Alkaline Phosphatase 154 H, Troponin I < 0.02, Total Protein 6.2 L, Albumin 2.4 L, Globulin 3.8 H, A
--- NOTE | 2019-01-01 17:42 | XR_ITS ---
XR chest portable HISTORY: Shortness of breath, epigastric cancer ITS.REASON: soa ORDERING PHYSICIAN: Gurpreet Saucedo MD PATIENT AGE: 78 years COMPARISON: 12/21/2018 FINDINGS: There has been a prior CABG. Normal heart size. There is diffuse bilateral alveolar opacification consistent with diffuse bilateral pneumonia or noncardiogenic pulmonary edema. Right subclavian Port-A-Cath is present with the tip in the region of the SVC. IMPRESSION: Diffuse bilateral airspace disease consistent with diffuse pneumonia
--- NOTE | 2019-01-01 17:45 | ED_ITS ---
ED Disposition Clinical Impression: Acute respiratory failure with hypoxia Bilateral pneumonia Qualifiers: Pneumonia type: due to unspecified organism Lung location: unspecified part of lung Qualified Code(s): J18.9 - Pneumonia, unspecified organism Pulmonary emboli Qualifiers: Pulmonary embolism type: unspecified Chronicity: acute Acute cor pulmonale presence: with acute cor pulmonale Qualified Code(s): I26.09 - Other pulmonary embolism with acute cor pulmonale Disposition: Admitted As Inpatient Condition on Discharge: Serious - Critical Care Critical Care Time: Yes Attestation: On 01/01/19, the high probability of a clinically significant, sudden or life threatening deterioration of the following system(s) required my full and direct attention, intervention and personal management. The time I documented below is in addition to time spent performing reported procedures but includes the following listed in this critical care notation. Total Critical Care Time: 50 Vital system(s) involved:: Respiratory Failure My critical care processes included: Assessment & monitoring of V/S, Initial and Re-exams, Data Review/Interpretation, Coordinating Care, Medication Orders and management, Documentation Medical Decision Making - [place] Inquiry Pt receiving controlled substance: No Vital Signs: 01/01/19 17:32 01/01/19 18:00 01/01/19 18:12 Temperature Temperature Source Pulse Rate [Left Radial] 117 H 110 H 105 H Respiratory Rate 40 H 36 H Blood Pressure [Right Arm] 192/136 H 153/100 H 114/68 Blood Pressure Mean [Right Arm] 154 117 83 Blood Pressure Source [Right Arm] Automatic Cuff Automatic Cuff Automatic Cuff Blood Pressure Position [Right Arm] Sitting Sitting Sitting 02 Sat by Pulse Oximetry 66 L 97 97 Oxygen Delivery Method Simple Mask BiPAP Oxygen Flow Rate (LPM) 01/01/19 18:16 01/01/19 18:25 01/01/19 18:30 Temperature 98.2 F Temperature Source Oral Pulse Rate [Left Radial] 108 H Respiratory Rate 36 H 36 H Blood Pressure [Right Arm] 103/74 L 126/76 Blood Pressure Mean [Right Arm] 83 92 Blood Pressure Source [Right Arm] Automatic Cuff Automatic Cuff Blood Pressure Position [Right Arm] Sitting Sitting 02 Sat by Pulse Oximetry 99 91 L 89 L Oxygen Delivery Method BiPAP Non-Rebreather Vapotherm Oxygen Flow Rate (LPM) 36 01/01/19 18:33 01/01/19 19:19 01/01/19 20:22 Temperature Temperature Source Pulse Rate [Left Radial] 110 H 117 H 122 H Respiratory Rate 38 H 28 H 18 Blood Pressure [Right Arm] 112/82 136/61 141/65 H Blood Pressure Mean [Right Arm] 92 86 90 Blood Pressure Source [Right Arm] Automatic Cuff Automatic Cuff Automatic Cuff Blood Pressure Position [Right Arm] Sitting Sitting Sitting 02 Sat by Pulse Oximetry 96 87 L 98 Oxygen Delivery Method Non-Rebreather Vapotherm BiPAP Oxygen Flow Rate (LPM) - Lab Data Lab Results 01/01/19 17:34: O2 % 15 lpm, ABG pH 7.33 L, ABG pCO2 46.5 H, ABG pO2 50.2 L, ABG HCO3 24.0, ABG Total CO2 25.4, ABG O2 Saturation 82 L*, ABG Base Excess -1.9, Andreas Test Acceptable 01/01/19 17:45: WBC 10.3 D, RBC 4.29 L, Hgb 11.1 L, Hct 37.6 L, MCV 87.6, MCH 25.7 L, MCHC 29.4 L, RDW 21.7 H, Plt Count 352 D, MPV 8.2, Neut %
[2019-01-01 18:00] LABS: Basophils % 0.3 % (0.1-2.0); Eosinophils % 0.4 % (0.1-12.0); Hematocrit 37.6 % (42.0-52.0); Hemoglobin 11.1 g/dL (14.1-18.0); Lymphocytes # 0.4 K/mm3 (0.7-4.5); Lymphocytes % 3.9 % (10-50); Mean Corpuscular HGB Conc 29.4 g/dL (31.8-35.4); Mean Corpuscular Hemoglobin 25.7 pg (27.0-31.2); Mean Corpuscular Volume 87.6 fl (80-94); Mean Platelet Volume 8.2 fl (7.4-10.4); Monocytes # 0.3 K/mm3 (0.1-1.0); Monocytes % 3.4 % (1.7-9.3); Neutrophils # 9.5 K/mm3 (1.8-7.8); Neutrophils % 92.2 % (37.0-80.0); Platelet Count 352 K/mm3 (142-424); Red Blood Count 4.29 M/mm3 (4.60-6.20); Red Cell Distribution Width 21.7 % (11.5-17.5); White Blood Count 10.3 K/mm3 (4.8-10.8)
[2019-01-01 18:03] LABS: MANUAL DIFFERENTIAL MANUAL DIFFERENTIAL (MANUAL DIFF)
[2019-01-01 18:10] LABS: Activated Partial Thrombo Time 24.7 seconds (23.6-34.0); INR 1.06 (0.9-1.1); Prothrombin Time 10.9 seconds (9.4-11.8)
--- NOTE | 2019-01-01 18:10 | PC.NURSE ---
pt unable to tolerate bipap resp. called going to change to vapotherm
[2019-01-01 18:17] LABS: Alanine Aminotransferase 31 U/L (12-78); Albumin Level 2.4 gm/dL (3.4-5.0); Albumin/Globulin Ratio 0.6 (1.1-1.8); Alkaline Phosphatase 154 U/L (46-116); Anion Gap 15.3 mEq/L (5-15); Aspartate Amino Transferase 19 U/L (15-37); Bilirubin,Total 0.6 mg/dL (0.2-1.0); Blood Urea Nitrogen 17 mg/dL (7-18); Calcium 8.2 mg/dL (8.5-10.1); Carbon Dioxide 26 mmol/L (21.0-32.0); Chloride 100 mmol/L (98-107); Creatinine Clearance Estimated 105 mL/min (50-200); Creatinine,Serum 0.86 mg/dL (0.70-1.30); Estimated Glomerular Filt Rate 86 ml/min (>60); GFR (African American) 105 ML/MIN (>60); Globulin 3.8 gm/dl (1.3-3.2); Glucose 276 mg/dL (74-106); Potassium 4.3 mmoL/L (3.5-5.1); Sodium 137 mmol/L (136-145); Total Protein,Serum 6.2 gm/dL (6.4-8.2); Troponin I < 0.02 ng/ml (0.00-0.06)
[2019-01-01 18:20] LABS: Lactic Acid 4.4 mmol/L (0.4-2.0)
--- NOTE | 2019-01-01 18:20 | PC.NURSE ---
informed dr morales of [facility] [email or web address]
--- NOTE | 2019-01-01 18:32 | PC.NURSE ---
family at bedside
[2019-01-01 18:35] LABS: Lymphocytes % 3 % (10-50); Monocytes % 1 % (2-9); Neutrophils % 87 % (42-76); Platelet Estimate Normal; Total Cells Counted 100
[2019-01-01 18:36] LABS: Anisocytosis 2+
[2019-01-01 18:37] LABS: Hypochromasia 3+; Rouleaux 2+
--- NOTE | 2019-01-01 19:32 | PC.NURSE ---
called RT to place patient back on bipap per request of Dr. Saucedo
--- NOTE | 2019-01-01 19:33 | CT_ITS ---
CT angio chest HISTORY: Shortness of breath, hypoxia, hemoptysis, esophageal cancer ITS.REASON: hypoxia, cancer, hemoptysis ORDERING PHYSICIAN: Blayne Gonzalez MD PATIENT AGE: 78 years COMPARISON: 01/20/2018 TECHNIQUE: Axial images obtained following the administration of 75 mL of Isovue 370 . Sagittal, and coronal reformatted images are also generated and reviewed. All CT scans at the facility use one or more dose reduction, viz: automated exposure control, ma/kV adjustment per patient size (including targeted exams where dose is matched to indication, i.e. head), or iterative reconstruction technique. FINDINGS: There has been a prior CABG. Acute bilateral pulmonary emboli noted. No large central sidle embolus. No evidence of aortic aneurysm or dissection. There is flattening of the interventricular septum suggesting mild right heart strain. No pericardial effusion. There is diffuse bilateral alveolar opacification with interspersed areas of abnormal attenuation. No effusions. Mildly prominent mediastinal lymph nodes are present nonspecific measuring up to 1.8 x 1.5 cm in the precarinal region and 1.4 x 1.2 cm in the prevascular region. Mildly prominent left hilar lymph node is present at one point, 1.4 cm. Upper abdominal images are unremarkable. No acute bony anomalies. IMPRESSION: 1. Acute bilateral pulmonary emboli with suggestion of mild right heart strain 2. Diffuse bilateral alveolar opacification. Diffuse pneumonia, edema, or pulmonary hemorrhage is considered 3. Mild mediastinal and hilar adenopathy
--- NOTE | 2019-01-01 19:46 | PC.NURSE ---
Patient going to CT with NRB at 15 lpm. Akhil,veterinary medicine teacher going with patient. Patient is going to attempt bipap again when he returns from CT.
--- NOTE | 2019-01-01 19:53 | PC.NURSE ---
patient in ct at this time
--- NOTE | 2019-01-01 20:32 | PC.NURSE ---
Dr Saucedo spoke with vrad, now on with Dr Torres
--- NOTE | 2019-01-01 21:33 | PC.NURSE ---
ARRIVED TO FLOOR, PER STRETCHER, FROM ED @ 2056
[2019-01-01 21:52] LABS: Reflex Lactic Add Lactic Reflex
[2019-01-01 22:11] LABS: Lactic Acid Follow Up (RFLX 1) 2.5 (0.4-2.0)
[2019-01-01 23:41] LABS: Reflex Lactic (2 hrs) Add Lactic Reflex
[2019-01-02] VITALS (23 sets, daily range): BP systolic 97–129; BP diastolic 43–57; PULSE 70–110; RESP 16–27; TEMP 36.4–36.7; O2SAT 88–100
[2019-01-02 00:03] LABS: Troponin I < 0.02 ng/ml (0.00-0.06)
[2019-01-02 00:11] LABS: Lactic Acid Follow up (RFLX 2) 2.9 (0.4-2.0)
--- NOTE | 2019-01-02 02:03 | PC.NURSE ---
He has been resting in bed with his at the bedside. He was admitted to the floor on a bipap with 100% FiO2, which has been weaned to 90% FiO2. He is A&Ox4. Denies pain. Reports a cough with blood tinged sputum, no cough since admission. Continue to need sputum for culture. He attempted to wear n/c to eat a pudding but family states his O2 dropped to 95 and was still dropping. Bipap was removed by this nurse long enough for pt to eat a pudding and his O2 dropped to 89%. Afib on telemetry, tachypnea noted. 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 Bilateral reddened buttocks that is blanchable on the right buttock but nonblanchable on the left buttock.
[2019-01-02 03:41] LABS: Basophils % 0.1 % (0.1-2.0); Eosinophils % 0.1 % (0.1-12.0); Hematocrit 32.9 % (42.0-52.0); Lymphocytes # 0.2 K/mm3 (0.7-4.5); Lymphocytes % 2.9 % (10-50); Mean Corpuscular HGB Conc 30.3 g/dL (31.8-35.4); Mean Corpuscular Hemoglobin 26.1 pg (27.0-31.2); Mean Corpuscular Volume 86.1 fl (80-94); Mean Platelet Volume 8.5 fl (7.4-10.4); Monocytes # 0.2 K/mm3 (0.1-1.0); Monocytes % 2.5 % (1.7-9.3); Neutrophils # 7.8 K/mm3 (1.8-7.8); Neutrophils % 94.5 % (37.0-80.0); Platelet Count 243 K/mm3 (142-424); Red Blood Count 3.82 M/mm3 (4.60-6.20); Red Cell Distribution Width 22.1 % (11.5-17.5); White Blood Count 8.3 K/mm3 (4.8-10.8)
[2019-01-02 03:48] LABS: MANUAL DIFFERENTIAL MANUAL DIFFERENTIAL (MANUAL DIFF)
[2019-01-02 03:53] LABS: Activated Partial Thrombo Time 104.2 seconds (23.6-34.0)
[2019-01-02 03:54] LABS: Anion Gap 8.9 mEq/L (5-15); Blood Urea Nitrogen 17 mg/dL (7-18); Calcium 7.9 mg/dL (8.5-10.1); Carbon Dioxide 34 mmol/L (21.0-32.0); Chloride 100 mmol/L (98-107); Creatinine Clearance Estimated 105 mL/min (50-200); Creatinine,Serum 0.75 mg/dL (0.70-1.30); Estimated Glomerular Filt Rate 101 ml/min (>60); GFR (African American) 123 ML/MIN (>60); Potassium 4.9 mmoL/L (3.5-5.1); Sodium 138 mmol/L (136-145); Troponin I < 0.02 ng/ml (0.00-0.06)
[2019-01-02 03:55] LABS: Glucose 186 mg/dL (74-106)
[2019-01-02 04:01] LABS: Anisocytosis 3+; Hypochromasia 3+; Lymphocytes % 6 % (10-50); Monocytes % 1 % (2-9); Neutrophils % 85 % (42-76); Platelet Estimate Normal; Total Cells Counted 100
[2019-01-02 04:02] LABS: Rouleaux 2+
--- NOTE | 2019-01-02 04:30 | PC.NURSE ---
FiO2 on bipap weaned to 85%.
--- NOTE | 2019-01-02 06:00 | XR_ITS ---
XR chest portable HISTORY: . Bilateral pulmonary emboli on last night CT a chest. ITS.REASON: pneumonia progress study ORDERING PHYSICIAN: Blayne Gonzalez MD PATIENT AGE: 78 years Technique: AP portable upright chest COMPARISON: PCXR from December 21, 2018. January 01, 2019. Also a CT chest from 01/01/2019 FINDINGS:. Extensive bilateral groundglass/ likely alveolar infiltrates bilaterally most pronounced at the throughout the left lung.. Diffuse infiltrates throughout left lung again noted but with slight progression of infiltrate left midlung & retrocardiac region medial left lung base since yesterday's CXR.. Additional Air bronchograms slightly more evident now here at the medial left lower lobe suggesting progression of infiltrate in this region since yesterday's PCXR.. Right lung. Less extensive infiltrate is seen throughout right lung most evident at right midlung. The infiltrate here on right midlung appears stable if not slightly improved since yesterday.. [id number] enters from the right subclavian with tip at the SVC. This is been present since at least 12/21/2018. Previous sternotomy/. CABG.. heart remains normal size No obvious pleural effusions on plain film IMPRESSION Extensive bilateral infiltrates most pronounced throughout left lung . Diffuse airspace disease most pronounced throughout LEFT LUNG. Suggestion Slight progression of infiltrate left midlung & medial left base since yesterday's study. Less extensive.Infiltrate RIGHT LUNG appears perhaps slightly improved compared to yesterday's exam
--- NOTE | 2019-01-02 07:16 | PC.NURSE ---
REPORT GIVEN TO Lucas SANTOS W/C
--- NOTE | 2019-01-02 07:30 | PC.NURSE ---
Addendum entered by Lee Wilcox RN 01/03/19 01:17: See consult pharmacy intervention. Original Note: report from lee. Was told aPPT was drawn at 0330 and resulted back at 0357. Nurse was then told to decrease heparin to 1600units/HR per animal control supervisor pharmacist. I do not see a note from this, but this is what I was told in report.
--- NOTE | 2019-01-02 07:34 | PC.NURSE ---
Report given to Ronna Rojas RN.
--- NOTE | 2019-01-02 08:03 | PC.NURSE ---
Advised Dr Gonzalez that pt triggers for severe sepsis d/t RR, HR, infection, new need for BiPAP, and aPPT. is aware also that pt's BP is running low 90s/ 40s and 50s and the last MAP at 0600 is 65.
--- NOTE | 2019-01-02 08:05 | HMH.HP ---
*Admission Date: 01/01/19 *Chief complaint: shortness of breath *History of present illness: 78 year old male with gastric carcinoma, restrictive lung disease, a-fib, htn presented to the ER with increased shortness of breath and chest congestion for 2 days that acutely worsened on the afternoon of admission. Patient was in respiratory distress in the ER and ultimately placed on bipap which improved oxygenation. Chest x-ray showed bilateral infiltrates vs. noncardiogenic pulmonary edema and a Chest CT showed infiltrates and bilateral pulmonary emboli. Patient has gastric carcinoma for which he is being treated with Taxol. This malignancy has caused 3 GI bleeds in the last 5 months that have required transfusions on at least one occasion(last week). [facility] History I have reviewed the patient's past medical history: Yes Medical History: Reports:: Atrial Fibrillation, Cancer (Gastric Carcinoma), Congestive Heart Failure, Coronary Artery Disease, Cerebrovascular Accident, Gastroesophageal Reflux Disease(GERD), Gastrointestinal Bleed, Hyperlipidemia, Hypertension, Myocardial Infarction Denies:: Chronic Obstructive Pulmonary Disease (COPD), Diabetes Mellitus Type 1, Diabetes Mellitus Type 2, MRSA, Seizures *Have you ever received a pneumonia vaccine?: Yes *Have you received a flu vaccine this season?: Yes Other Medical History: Denies: Blood Transfusion Reaction Other Surgeries: Yes: CABG Amputation: No Fractures: No - *Social History Educational Level: Completed High School Smoking Status: Former smoker Tobacco Type: cigarettes # Packs/Day (cigarettes): 1 Alcohol Intake: never *Occupational Status:: retired Housing: house Household Members: spouse *Travel in the last 8 weeks: None - Psychiatric History Expresses thoughts of harming self/others: None Suicide Plan Description: No Plan Family Hx:: Non-contributory Review of Systems - Review of Systems Review of systems:: pertinent systems reviewed and negative unless documented below - Constitutional Denies body ache(s), Denies chills, Denies daytime sleepiness - *Cardiovascular Denies chest pain - *Respiratory Reports chest congestion, Reports cough, Reports shortness of breath Comments: hemoptysis - *Gastrointestinal Denies abdominal pain Comments: history of gi bleeds Meds Home Medications Medication Instructions Recorded Confirmed Type RX: Atorvastatin Calcium 40 mg PO HS 09/08/18 01/01/19 History [Atorvastatin 80mg Tab] RX: Famotidine [Acid Controller] 20 mg PO BID 09/08/18 01/01/19 History RX: Fenofibrate,Micronized [Tricor 134 mg PO DAILY 09/08/18 01/01/19 History 134mg] RX: Furosemide [Furosemide 20mg 20 mg PO DAILYP PRN 09/08/18 01/01/19 History Tab] RX: Lisinopril [Lisinopril 10mg 5 mg PO HS 09/08/18 01/01/19 History Tab] RX: Metoprolol Tartrate [Lopressor 25 mg PO BID 09/08/18 01/01/19 History 25mg tablet] RX: Montelukast Sodium 10 mg PO DAILY 09/08/18 01/01/19 History [Montelukast 10mg Tab] RX: Omeprazole [Omeprazole 20mg 20 mg PO DAILY 09/08/18 01/01/19 History Capsule] RX: Sour [place] Extract [Tart 1,200 mg PO DAILY 09/08/18 01/01/19 History Koroma Extract] RX: dilTIAZem HCl [Cartia Xt] 240 mg PO DAILY 09/08/18 01/01/19 History RX: Loratadine [Allergy] 10 mg PO DAILY 10/30/18 01/01/19 History oxycodone 5 mg capsule 5 mg PO Q4-6H PRN 12/17/18 01/01/19 History RX: Prochlorperazine Maleate 10 mg PO Q6HP PRN 12/21/18 01/01/19 History diphenhydrAMINE HCl [Benadryl] 50 mg PO Q6HP PRN 12/21/18 01/01/19 History predniSONE [Prednisone 5mg Tab 5 mg PO UD DOSE PK 12/31/18 01/01/19 History Dose-Pack] Docusate Sodium [Colace 250mg 250 mg PO DAILY 01/01/19 01/01/19 History capsule] Ondansetron HCl [Ondansetron 4mg 4 mg PO Q8HP PRN 01/01/19 01/01/19 History Tablet] PACLitaxel [Taxol 100mg/16.7mL 200 mg IV WEEKLY 01/02/19 01/02/19 History vial] Allergies Allergy/AdvReac Type Severity Reaction Status Date /
--- NOTE | 2019-01-02 08:09 | P.HP_ITS ---
*Admission Date: 01/01/19 *Chief complaint: shortness of breath *History of present illness: 78 year old male with gastric carcinoma, restrictive lung disease, a-fib, htn presented to the ER with increased shortness of breath and chest congestion for 2 days that acutely worsened on the afternoon of admission. Patient was in respiratory distress in the ER and ultimately placed on bipap which improved oxygenation. Chest x-ray showed bilateral infiltrates vs. noncardiogenic pulmonary edema and a Chest CT showed infiltrates and bilateral pulmonary emboli. Patient has gastric carcinoma for which he is being treated with Taxol. This malignancy has caused 3 GI bleeds in the last 5 months that have required t ransfusions on at least one occasion(last week). [facility] History I have reviewed the patient's past medical history: Yes Medical History: Reports:: Atrial Fibrillation, Cancer (Gastric Carcinoma), Congestive Heart Failure, Coronary Artery Disease, Cerebrovascular Accident, Gastroesophageal Reflux Disease(GERD), Gastrointestinal Bleed, Hyperlipidemia, Hypertension, Myocardial Infarction Denies:: Chronic Obstructive Pulmonary Disease (COPD), Diabetes Mellitus Type 1, Diabetes Mellitus Type 2, MRSA, Seizures *Have you ever received a pneumonia vaccine?: Yes *Have you received a flu vaccine this season?: Yes Other Medical History: Denies: Blood Transfusion Reaction Other Surgeries: Yes: CABG Amputation: No Fractures: No - *Social History Educational Level: Completed High School Smoking Status: Former smoker Tobacco Type: cigarettes # Packs/Day (cigarettes): 1 Alcohol Intake: never *Occupational Status:: retired Housing: house Household Members: spouse *Travel in the last 8 weeks: None - Psychiatric History Expresses thoughts of harming self/others: None Suicide Plan Description: No Plan Family Hx:: Non-contributory Review of Systems - Review of Systems Review of systems:: pertinent systems reviewed and negative unless documented below - Constitutional Denies body ache(s), Denies chills, Denies daytime sleepiness - *Cardiovascular Denies chest pain - *Respiratory Reports chest congestion, Reports cough, Reports shortness of breath Comments: hemoptysis - *Gastrointestinal Denies abdominal pain Comments: history of gi bleeds Meds Home Medications Medication Instructions Recorded Confirmed Type RX: Atorvastatin Calcium 40 mg PO HS 09/08/18 01/01/19 History [Atorvastatin 80mg Tab] RX: Famotidine [Acid Controller] 20 mg PO BID 09/08/18 01/01/19 History RX: Fenofibrate,Micronized [Tricor 134 mg PO DAILY 09/08/18 01/01/19 History 134mg] RX: Furosemide [Furosemide 20mg 20 mg PO DAILYP PRN 09/08/18 01/01/19 History Tab] RX: Lisinopril [Lisinopril 10mg 5 mg PO HS 09/08/18 01/01/19 History Tab] RX: Metoprolol Tartrate [Lopressor 25 mg PO BID 09/08/18 01/01/19 History 25mg tablet] RX: Montelukast Sodium 10 mg PO DAILY 09/08/18 01/01/19 History [Montelukast 10mg Tab] RX: Omeprazole [Omeprazole 20mg 20 mg PO DAILY 09/08/18 01/01/19 History Capsule] RX: Sour Koroma Extract [Tart 1,200 mg PO DAILY 09/08/18 01/01/19 History Koroma Extract] RX: dilTIAZem HCl [Cartia Xt] 240 mg PO DAILY 09/08/18 01/01/19 History RX: Loratadine [Allergy] 10 mg PO DAILY 10/30/18 01/01/19 History oxycodone 5 mg capsule 5 mg PO Q4-6H PRN 12/17/18 01/01/19 History RX: Prochlorperazine Lorna
--- NOTE | 2019-01-02 08:30 | HMH.PHACONS ---
- Pharmacy Consult Date: 01/02/19 Time: 08:30 Referring provider: DR. MERAZ Reason for Consult:: VANCOMYCIN DOSING Allergies and ADEs:: Allergies Allergy/AdvReac Type Severity Reaction Status Date / Time Penicillins Allergy Unknown UNKNOWN Verified 01/01/19 21:49 Home Medications:: Home Medications Medication Instructions Recorded Confirmed Type Atorvastatin Calcium [Atorvastatin 40 mg PO HS 09/08/18 01/01/19 History 80mg Tab] Famotidine [Acid Controller] 20 mg PO BID 09/08/18 01/01/19 History Fenofibrate,Micronized [Tricor 134 mg PO DAILY 09/08/18 01/01/19 History 134mg] Furosemide [Furosemide 20mg Tab] 20 mg PO DAILYP PRN 09/08/18 01/01/19 History Lisinopril [Lisinopril 10mg Tab] 5 mg PO HS 09/08/18 01/01/19 History Metoprolol Tartrate [Lopressor 25 mg PO BID 09/08/18 01/01/19 History 25mg tablet] Montelukast Sodium [Montelukast 10 mg PO DAILY 09/08/18 01/01/19 History 10mg Tab] Omeprazole [Omeprazole 20mg 20 mg PO DAILY 09/08/18 01/01/19 History Capsule] Sour Koroma Extract [Tart Kor[place] 1,200 mg PO DAILY 09/08/18 01/01/19 History Extract] dilTIAZem HCl [Cartia Xt] 240 mg PO DAILY 09/08/18 01/01/19 History Loratadine [Allergy] 10 mg PO DAILY 10/30/18 01/01/19 History oxycodone 5 mg capsule 5 mg PO Q4-6H PRN 12/17/18 01/01/19 History Prochlorperazine Maleate 10 mg PO Q6HP PRN 12/21/18 01/01/19 History diphenhydrAMINE HCl [Benadryl] 50 mg PO Q6HP PRN 12/21/18 01/01/19 History predniSONE [Prednisone 5mg Tab 5 mg PO UD DOSE PK 12/31/18 01/01/19 History Dose-Pack] Docusate Sodium [Colace 250mg 250 mg PO DAILY 01/01/19 01/01/19 History capsule] Ondansetron HCl [Ondansetron 4mg 4 mg PO Q8HP PRN 01/01/19 01/01/19 History Tablet] Height: 1.85 m Weight: 118.444 kg Laboratory Results:: Laboratory Results - last 24 hr 01/01/19 17:34: O2 % 15 lpm, ABG pH 7.33 L, ABG pCO2 46.5 H, ABG pO2 50.2 L, ABG HCO3 24.0, ABG Total CO2 25.4, ABG O2 Saturation 82 L*, ABG Base Excess -1.9, Andreas Test Acceptable 01/01/19 17:45: WBC 10.3 D, RBC 4.29 L, Hgb 11.1 L, Hct 37.6 L, MCV 87.6, MCH 25.7 L, MCHC 29.4 L, RDW 21.7 H, Plt Count 352 D, MPV 8.2, Neut % (Auto) 92.2 H, Lymph % (Auto) 3.9 L, [place] % (Auto) 3.4, Eos % (Auto) 0.4, Baso % (Auto) 0.3, Neut # (Auto) 9.5 H, Lymph # (Auto) 0.4 L, [place] # (Auto) 0.3, Eos # (Auto) 0.0, Baso # (Auto) 0.0, Total Counted 100, Neutrophils % (Manual) 87 H, Band Neutrophils % 9.0 H, Lymphocytes % (Manual) 3 L, Monocytes % (Manual) 1 L, Platelet Estimate Normal, Hypochromasia 3+, Anisocytosis 2+, Rouleaux 2+ 01/01/19 17:45: Sodium 137, Potassium 4.3, Chloride 100, Carbon Dioxide 26, Anion Gap 15.3 H, BUN 17, Creatinine 0.86, Estimated Creat Clear 105, Estimated GFR 86, Est GFR ( Amer) 105, Glucose 276 H, Calcium 8.2 L, Total Bilirubin 0.6, AST 19, ALT 31, Alkaline Phosphatase 154 H, Troponin I < 0.02, Total Protein 6.2 L, Albumin 2.4 L, Globulin 3.8 H, Albumin/Globulin Ratio 0.6 L 01/01/19 17:45: B-Natriuretic Peptide 359 H 01/01/19 17:45: PT 10.9, INR 1.06, APTT 24.7 01/01/19 17:45: Lactate 4.4 H 01/01/19 21:47: Lactate 2.5 H 01/01/19 23:35: Troponin I < 0.02 01/01/19 23:35: Lactate 2.9 H 01/02/19 03:30: WBC 8.3, RBC 3.82 L, Hgb 10.0 L, Hct 32.9 L, MCV 86.1, MCH 26.1 L, MCHC 30.3 L, RDW 22.1 H, Plt Count 243 D, MPV 8.5, Neut % (Auto) 94.5 H, Lymph % (Auto) 2.9 L, [place] % (Auto) 2.5, Eos % (Auto) 0.1, Baso % (Auto) 0.1, Neut # (Auto) 7.8, Lymph # (Auto) 0.2 L, [place] # (Auto) 0.2, Eos # (Auto) 0.0, Baso # (Auto) 0.0, Total Counted 100, Neutrophils % (Manual) 85 H, Band Neutrophils % 8.0, Lymphocytes % (Manual) 6 L, Monocytes % (Manual) 1 L, Platelet Estimate Normal, Hypochromasia 3+, Anisocytosis 3+, Rouleaux 2+ 01/02/19 03:30: Sodium 138, Potassium 4.9, Chloride 100, Carbon Dioxide 34 H D, Anion Gap 8.9, BUN 17, Creatinine 0.75, Estimated Creat Clear 105, Estimated GFR 101, Est GFR ( Amer) 123, Glucose 186 H D, Calcium 7.9 L, Troponin I < 0.02 01/02/19 03:30: APTT 104.2
--- NOTE | 2019-01-02 09:03 | PC.NURSE ---
0830: contacted RT to increase settings on vapotherm, pt's sats drop below 90% at times.
--- NOTE | 2019-01-02 09:03 | PC.NURSE ---
0836: RT on floor and increases settings on vapotherm at this time
[2019-01-02 10:28] LABS: Activated Partial Thrombo Time 71.6 seconds (23.6-34.0)
--- NOTE | 2019-01-02 10:56 | P.CONPHA_ITS ---
[facility] Pharmacy VTE Monitoring - Patient Demographics Admission date: 01/01/19 Report Date: 01/02/19 Time: 10:50 Allergies/Adverse Reactions: Patient Allergies Penicillins Allergy (Unknown, Verified 01/01/19 21:49) UNKNOWN Height: 1.85 m Weight: 118.444 kg - VTE Risk Labs: VTE Related Lab Results Hgb 10.0 g/dL (14.1-18.0) L 01/02/19 03:30 Hct 32.9 % (42.0-52.0) L 01/02/19 03:30 Plt Count 243 K/mm3 (142-424) D 01/02/19 03:30 PT 10.9 seconds (9.4-11.8) 01/01/19 17:45 INR 1.06 (0.9-1.1) 01/01/19 17:45 APTT 71.6 seconds (23.6-34.0) H* D 01/02/19 10:07 BUN 17 mg/dL (7-18) 01/02/19 03:30 Creatinine 0.75 mg/dL (0.70-1.30) 01/02/19 03:30 Estimated Creat Clear 105 mL/min (50-200) 01/02/19 03:30 Was VTE Risk Assessment Performed: Yes VTE Score: 11 VTE Risk Level: Moderate Risk - Prophylaxis VTE Prophylaxis Ordered?: Yes Types of VTE Prophylaxis: Pharmacological Pharmacologic Type: Heparin - VTE Diagnosis Confirmed Treatment or plan recommended: Add Warfarin Warfarin counseling provided if indicated?: No (PATIENT ) Bridge therapy started inpt?: Yes
--- NOTE | 2019-01-02 10:57 | HMH.PHAHEP ---
<Johan Castaneda - Last Filed: 01/04/19 10:51> [facility] Pharmacy Heparin Dosing - Demographic Data Allergies/Adverse Reactions: Allergies Allergy/AdvReac Type Severity Reaction Status Date / Time Penicillins Allergy Unknown UNKNOWN Verified 01/01/19 21:49 - Labs Anticoagulation Lab Results:: 01/04/19 05:20 Hgb 9.8 L Hct 32.4 L Plt Count 246 - Monitoring Dose Monitor 4 Date: 01/02/19 Time: 14:10 PTT Result:: 64.8 Infusion Rate:: 32 ML/HR Dose Monitor 5 Date: 01/02/19 Time: 22:13 PTT Result:: 75.9 Infusion Rate:: 32 ML/HR Dose Monitor 6 Date: 01/03/19 Time: 05:00 PTT Result:: 84.0 Infusion Rate:: 32 ML/HR Comment:: RATE DECREASED TO 30 ML/HR Dose Monitor 7 Date: 01/03/19 Time: 17:28 PTT Result:: 48.0 Infusion Rate:: 30 ML/HR Comment:: RATE INCREASED TO 32 ML/HR Dose Monitor 8 Date: 01/03/19 Time: 22:57 PTT Result:: 47.4 Infusion Rate:: 32 ML/HR Comment:: RATE INCREASED TO 33 ML/HR Dose Monitor 9 Date: 01/04/19 Time: 05:25 PTT Result:: 66.7 Infusion Rate:: 33 ML/HR - Core Measures Most Recent Labs:: Laboratory Results - last 24 hr 01/03/19 17:26: APTT 48.0 H D 01/03/19 22:57: APTT 47.4 H 01/04/19 05:20: WBC 4.7 L D, RBC 3.68 L, Hgb 9.8 L, Hct 32.4 L, MCV 87.9, MCH 26.5 L, MCHC 30.2 L, RDW 22.6 H, Plt Count 246, MPV 8.1, Neut % (Auto) 93.2 H, Lymph % (Auto) 3.2 L, [place] % (Auto) 3.3, Eos % (Auto) 0.2, Baso % (Auto) 0.2, Neut # (Auto) 4.4, Lymph # (Auto) 0.1 L, [place] # (Auto) 0.2, Eos # (Auto) 0.0, Baso # (Auto) 0.0, Total Counted 100, Neutrophils % (Manual) 86 H, Band Neutrophils % 9.0 H, Lymphocytes % (Manual) 5 L, Platelet Estimate Normal, Polychromasia 2+, Hypochromasia 3+, Poikilocytosis 1+, Anisocytosis 3+, Macrocytosis 1+, Rouleaux 1+ 01/04/19 05:20: Sodium 141, Potassium 5.1, Chloride 102, Carbon Dioxide 34 H, Anion Gap 10.1, BUN 39 H D, Creatinine 0.72, Estimated Creat Clear 109, Estimated GFR 106, Est GFR ( Amer) 128, Glucose 194 H, Calcium 8.2 L 01/04/19 05:20: PT 12.4 H, INR 1.21 H 01/04/19 05:25: APTT 66.7 H* D <Beth Kilgore - Last Filed: 01/05/19 16:11> [facility] Pharmacy Heparin Dosing - Labs Anticoagulation Lab Results:: 01/05/19 05:30 Hgb 9.6 L Hct 32.5 L Plt Count 241 - Monitoring Dose Monitor 13 Date: 01/05/19 Time: 08:30 PTT Result:: 111.3 Infusion Rate:: - REPORTED TO THIS PHARMACIST FROM LIU PAREKH THAT BLOOD IS BEING DRAWN FOR PTT FROM SAME PORT THAT HEPARIN IS BEING RUN IN. ORDER GIVEN TO HOLD HEPARIN FOR 1 HOUR, MOVE HEPARIN TO PERIPHERAL IV SITE, REDRAW PTT FROM PORT WITHOUT HEPARIN INFUSION IN 1 HOUR. Dose Monitor 14 Date: 01/05/19 Time: 10:45 PTT Result:: 39.6 Infusion Rate:: RESULTS DRAWN FROM PORT WITHOUT HEPARIN RUNNING INTO IT GIVE ACCURATE RESULTS, INFUSION IMMEDIATELY RESTARTED AT 32ML/HR Dose Monitor 15 Date: 01/05/19 Time: 15:30 PTT Result:: 88.6 Infusion Rate:: decreased rate to 28ml/hr, spoke with terri PAREKH - Core Measures Most Recent Labs:: Laboratory Results - last 24 hr 01/04/19 11:40: APTT 63.1 H* 01/04/19 17:40: APTT 71.4 H* D 01/05/19 01:10: APTT 109.7 H* D 01/05/19 05:30: WBC 1.8 L* D, RBC 3.59 L, Hgb 9.6 L, Hct 32.5 L, MCV 90.5, MCH 26.8 L, MCHC 29.6 L, RDW 23.3 H, Plt Count 241, MPV 8.6, Neut % (Auto) 87.1 H, Lymph % (Auto) 7.5 L, [place] % (Auto) 4.8, Eos % (Auto) 0.2, Baso % (Auto) 0.4, Neut # (Auto) 1.6 L, Lymph # (Auto) 0.1 L, [place] # (Auto) 0.1, Eos # (Auto) 0.0, Baso # (Auto) 0.0, Total Counted 100, Neutrophils % (Manual) 89 H, Band Neutrophils % 5.0, Lymphocytes % (Manual) 5 L, Monocytes % (Manual) 1 L, Platelet Estimate Normal, Hypochromasia 2+, Anisocytosis 2+, Ovalocytes 1+ 01/05/19 05:30: Sodium 141, Potassium 5.5 H, Chloride 103, Carbon Dioxide 36 H, Anion Gap 7.5, BUN 46 H, Creatinine 0.67 L, Estimated Creat Clear 111, Estimated GFR 115, Est GFR ( Amer) 140, Glucose 195 H, Calcium 8.4 L 01/05/19 0
--- NOTE | 2019-01-02 11:00 | P.CONPHA_ITS ---
<Johan Castaneda - Last Filed: 01/04/19 10:51> [facility] Pharmacy Heparin Dosing - Demographic Data Allergies/Adverse Reactions: Allergies Allergy/AdvReac Type Severity Reaction Status Date / Time Penicillins Allergy Unknown UNKNOWN Verified 01/01/19 21:49 - Labs Anticoagulation Lab Results:: 01/04/19 05:20 Hgb 9.8 L Hct 32.4 L Plt Count 246 - Monitoring Dose Monitor 4 Date: 01/02/19 Time: 14:10 PTT Result:: 64.8 Infusion Rate:: 32 ML/HR Dose Monitor 5 Date: 01/02/19 Time: 22:13 PTT Result:: 75.9 Infusion Rate:: 32 ML/HR Dose Monitor 6 Date: 01/03/19 Time: 05:00 PTT Result:: 84.0 Infusion Rate:: 32 ML/HR Comment:: RATE DECREASED TO 30 ML/HR Dose Monitor 7 Date: 01/03/19 Time: 17:28 PTT Result:: 48.0 Infusion Rate:: 30 ML/HR Comment:: RATE INCREASED TO 32 ML/HR Dose Monitor 8 Date: 01/03/19 Time: 22:57 PTT Result:: 47.4 Infusion Rate:: 32 ML/HR Comment:: RATE INCREASED TO 33 ML/HR Dose Monitor 9 Date: 01/04/19 Time: 05:25 PTT Result:: 66.7 Infusion Rate:: 33 ML/HR - Core Measures Most Recent Labs:: Laboratory Results - last 24 hr 01/03/19 17:26: APTT 48.0 H D 01/03/19 22:57: APTT 47.4 H 01/04/19 05:20: WBC 4.7 L D, RBC 3.68 L, Hgb 9.8 L, Hct 32.4 L, MCV 87.9, MCH 26.5 L, MCHC 30.2 L, RDW 22.6 H, Plt Count 246, MPV 8.1, Neut % (Auto) 93.2 H, Lymph % (Auto) 3.2 L, [place] % (Auto) 3.3, Eos % (Auto) 0.2, Baso % (Auto) 0.2, Neut # (Auto) 4.4, Lymph # (Auto) 0.1 L, [place] # (Auto) 0.2, Eos # (Auto) 0.0, Baso # (Auto) 0.0, Total Counted 100, Neutrophils % (Manual) 86 H, Band Neutrophils % 9.0 H, Lymphocytes % (Manual) 5 L, Platelet Estimate Normal, Polychromasia 2+, Hypochromasia 3+, Poikilocytosis 1+, Anisocytosis 3+, Macrocytosis 1+, Rouleaux 1+ 01/04/19 05:20: Sodium 141, Potassium 5.1, Chloride 102, Carbon Dioxide 34 H, Anion Gap 10.1, BUN 39 H D, Creatinine 0.72, Estimated Creat Clear 109, Estimated GFR 106, Est GFR ( Amer) 128, Glucose 194 H, Calcium 8.2 L 01/04/19 05:20: PT 12.4 H, INR 1.21 H 01/04/19 05:25: APTT 66.7 H* D <Beth Kilgore - Last Filed: 01/05/19 16:11> [facility] Pharmacy Heparin Dosing - Labs Anticoagulation Lab Results:: 01/05/19 05:30 Hgb 9.6 L Hct 32.5 L Plt Count 241 - Monitoring Dose Monitor 13 Date: 01/05/19 Time: 08:30 PTT Result:: 111.3 Infusion Rate:: - REPORTED TO THIS PHARMACIST FROM LIU PAREKH THAT BLOOD IS BEING DRAWN FOR PTT FROM SAME PORT THAT HEPARIN IS BEING RUN IN. ORDER GIVEN TO HOLD HEPARIN FOR 1 HOUR, MOVE HEPARIN TO PERIPHERAL IV SITE, REDRAW PTT FROM PORT WITHOUT HEPARIN INFUSION IN 1 HOUR. Dose Monitor 14 Date: 01/05/19 Time: 10:45 PTT Result:: 39.6 Infusion Rate:: RESULTS DRAWN FROM PORT WITHOUT HEPARIN RUNNING INTO IT GIVE ACCURATE RESULTS, INFUSION IMMEDIATELY RESTARTED AT 32ML/HR Dose Monitor 15 Date: 01/05/19 Time: 15:30 PTT Result:: 88.6 Infusion Rate:: decreased rate to 28ml/hr, spoke with terri PAREKH - Core Measures Most Recent Labs:: Evelyn
--- NOTE | 2019-01-02 11:07 | PC.NURSE ---
1030: yifan calls and states that pt's aPPT is WNL- will continue heparin at the rate of 1600units/hr
--- NOTE | 2019-01-02 11:08 | PC.NURSE ---
1015: pt requests to be placed back on bipap.
--- NOTE | 2019-01-02 14:58 | PC.NURSE ---
PATIENT REQUESTS ATIVAN (BY NAME). FAMILY STATES THAT ER DOCTOR ORDERED IT FOR UP HERE. I CHECKED ORDERS AND MEDICATION HAS NOT BEEN ORDERED. CALLED TRACK TEMPLATE MAKER, DR DIETRICH. ORDERS ONE TIME DOSE OF ATIVAN 0.5MG PO.
[2019-01-02 16:38] LABS: Activated Partial Thrombo Time 64.8 seconds (23.6-34.0)
--- NOTE | 2019-01-02 16:46 | PC.NURSE ---
ALEX FROM PHARMACY CALLS AND ORDERS TO INCREASE HEPARIN DOSE TO 33ML/HR (1650 UNITS/HR) AT THIS TIME R/T aPPT RESULTS.
--- NOTE | 2019-01-02 16:49 | PC.NURSE ---
HEPARIN RATE INCREASED TO 1650UNITS/HR (33ML/HR) AT THIS TIME
--- NOTE | 2019-01-02 18:33 | PC.NURSE ---
BIPAP TUBE BECAME DISCONNECTED FOR 30 SECONDS AND PT'S SATS DROPPED TO 70% IN THAT SHORT TIME. PT ANXIOUS. TUBING CONNECTED QUICK POSSIBLE. EDUCATED PT TO BE CAREFUL MOVING ARMS AND PULLING ON TUBES. ADVISED PT THAT WE WILL LEAVE DOOR OPEN (CLOSED CURTAIN) SO STAFF CAN HEAR BIPAP ALARMS BETTER.
[2019-01-02 18:37] LABS: Hematocrit 30.7 % (42.0-52.0); Hemoglobin 9.3 g/dL (14.1-18.0)
[2019-01-02 22:40] LABS: Activated Partial Thrombo Time 75.9 seconds (23.6-34.0)
[2019-01-03] VITALS (22 sets, daily range): BP systolic 99–120; BP diastolic 40–81; PULSE 78–100; RESP 16–28; TEMP 36.4–36.6; O2SAT 94–100; BMI 35.5
--- NOTE | 2019-01-03 03:47 | PC.NURSE ---
During his initial assessment he was calm and family was at the bedside. He reported a normal appetite and a non-productive cough. He reports SOA with movement or if his mask is removed. Stated that the bipap mask was bothering his nose; therefore, a hydrocolloid DSG was applied and he reports relief. He has not pulled at his mask as much since. Denies pain. Reports his last BM was 12/30 and loose. Normal bowel sounds. Voiding per elizabeth catheter. Urine is yellow, cloudy with some sediment. Spoke with him about turning and repositioned r/t to his buttocks being red with one area non-blanchable and he stated he would turn himself. Strong, equal parking enforcement officer. Scattered bruising on BUE. Dentures in cup on bedside table. Continues with Afib on telemetry. DSG on port-a-cath changed via sterile technique. He slept intermittently t/o the night. He has awakened twice feeling anxious. The first time used the call light and yelled help, I can't breathe. His O2 sats 91-92%. He continues on the bipap with 85% FiO2. retail area manager MD was paged r/t patient complaint and bilateral lung bases with crackles. Order received to give ativan 0.5mg IV once, morphine 2mg IV once, and lasix 40mg IV once. Pt reported some relief after receiving medications. Urine output recorded in I&Os. He awakened a couple hours later and could be heard talking in his room. He stated he did not feel well, aching all over, and felt anxious. PRN medication given and has been resting in bed. He is sleeping with his HOB elevated.
[2019-01-03 05:21] LABS: Basophils % 0.1 % (0.1-2.0); Eosinophils % 0.2 % (0.1-12.0); Hematocrit 32.1 % (42.0-52.0); Hemoglobin 9.7 g/dL (14.1-18.0); Lymphocytes # 0.2 K/mm3 (0.7-4.5); Lymphocytes % 2.1 % (10-50); Mean Corpuscular HGB Conc 30.1 g/dL (31.8-35.4); Mean Corpuscular Hemoglobin 26.1 pg (27.0-31.2); Mean Corpuscular Volume 86.9 fl (80-94); Mean Platelet Volume 8.6 fl (7.4-10.4); Monocytes # 0.2 K/mm3 (0.1-1.0); Neutrophils # 7.5 K/mm3 (1.8-7.8); Neutrophils % 94.5 % (37.0-80.0); Platelet Count 247 K/mm3 (142-424); Red Cell Distribution Width 22.1 % (11.5-17.5); White Blood Count 7.9 K/mm3 (4.8-10.8)
[2019-01-03 05:22] LABS: MANUAL DIFFERENTIAL MANUAL DIFFERENTIAL (MANUAL DIFF)
[2019-01-03 05:26] LABS: Anion Gap 8.7 mEq/L (5-15); Blood Urea Nitrogen 31 mg/dL (7-18); Calcium 7.9 mg/dL (8.5-10.1); Carbon Dioxide 33 mmol/L (21.0-32.0); Chloride 102 mmol/L (98-107); Creatinine Clearance Estimated 108 mL/min (50-200); Creatinine,Serum 0.75 mg/dL (0.70-1.30); Estimated Glomerular Filt Rate 101 ml/min (>60); GFR (African American) 123 ML/MIN (>60); Glucose 182 mg/dL (74-106); Potassium 4.7 mmoL/L (3.5-5.1); Sodium 139 mmol/L (136-145)
[2019-01-03 05:28] LABS: INR 1.11 (0.9-1.1); Prothrombin Time 11.4 seconds (9.4-11.8)
[2019-01-03 05:37] LABS: Anisocytosis 2+; Hypochromasia 2+; Lymphocytes % 3 % (10-50); Neutrophils % 90 % (42-76); Platelet Estimate Normal; Polychromasia 1+; Rouleaux 2+; Total Cells Counted 100
--- NOTE | 2019-01-03 06:00 | XR_ITS ---
XR chest portable HISTORY: ITS.REASON: pneumonia progress ORDERING PHYSICIAN: Blayne Gonzalez MD PATIENT AGE: 78 years Technique: AP portable upright chest COMPARISON: January 02 & 2018. It also December 21 and FINDINGS: lower lung volume on today's CXR. Less than optimal inspiration. Slight lordotic projection. Left lung. Infiltrates persist with slight progression at the medial left base left midlung On today's film the medial left hemidiaphragm as well as the left heart border are further obscured due to the airspace disease the medial left lung base due to infiltrate at LLL and lingula... Today's images suggests slight progression infiltrate in these regions. Less optimal inspiration may also contribute to this picture.. Also Slight progressive infiltrate left mid lung, left perihilar region suggested. Certainly no improvement on left At the right lung infiltrate is seen throughout the right midlung extending above the level of the right yuliana. Overall infiltrate/airspace disease here Appears fairly similar to previous studies from January 02 & .. No improvement.. The infiltrate here appears similar to studies dating back to January 01. But With today's less optimal inspiration there is less aerated lung at the right lung base just above right hemidiaphragm heart upper normal in size.. Sternotomy. Port-A-Cath enters from right subclavian with tip in SVC. hall monitor leads are in place. IMPRESSION: Bilateral infiltrates most evident on Left Less optimal inspiration today in part accentuates findings.. Diffuse infiltrate left lung, with again slight further Progression Infiltrate at Left Lung Base & Left Midlung Infiltrate throughout Right midlung overall similar to previous study.
--- NOTE | 2019-01-03 07:11 | PC.NURSE ---
obtained report from denilson de santiago
--- NOTE | 2019-01-03 07:23 | PC.NURSE ---
REPORT GIVEN TO Tonya WHITE W/C
--- NOTE | 2019-01-03 07:40 | HMH.ACPN2 ---
Internal Medicine - PN: Subj *Date: 01/03/19 *Time: 07:40 Interval history: Nursing staff as patient had a rough night. He woke multiple times complaining of shortness of breath even with use of BiPAP. This morning he does feel some short of breath. He denies pain. Nursing staff reports patient's been moaning in bed a lot. I have seen him exhibit this behavior before when he feels bad. His granddaughter at bedside. Exam Vital signs and Labs for Last 24 Hours: Temp Pulse Resp BP Pulse Ox 97.9 F 99 H 22 101/76 L 96 01/03/19 05:20 01/03/19 06:20 01/03/19 04:18 01/03/19 06:00 01/03/19 06:00 Laboratory Results - last 24 hr 01/02/19 10:07: APTT 71.6 H* D 01/02/19 14:10: APTT 64.8 H* 01/02/19 18:15: Hgb 9.3 L, Hct 30.7 L 01/02/19 22:13: APTT 75.9 H* D 01/03/19 05:00: WBC 7.9, RBC 3.70 L, Hgb 9.7 L, Hct 32.1 L, MCV 86.9, MCH 26.1 L, MCHC 30.1 L, RDW 22.1 H, Plt Count 247, MPV 8.6, Neut % (Auto) 94.5 H, Lymph % (Auto) 2.1 L, [place] % (Auto) 3.0, Eos % (Auto) 0.2, Baso % (Auto) 0.1, Neut # (Auto) 7.5, Lymph # (Auto) 0.2 L, [place] # (Auto) 0.2, Eos # (Auto) 0.0, Baso # (Auto) 0.0, Total Counted 100, Neutrophils % (Manual) 90 H, Band Neutrophils % 7.0, Lymphocytes % (Manual) 3 L, Platelet Estimate Normal, Polychromasia 1+, Hypochromasia 2+, Anisocytosis 2+, Rouleaux 2+ 01/03/19 05:00: Sodium 139, Potassium 4.7, Chloride 102, Carbon Dioxide 33 H, Anion Gap 8.7, BUN 31 H D, Creatinine 0.75, Estimated Creat Clear 108, Estimated GFR 101, Est GFR ( Amer) 123, Glucose 182 H, Calcium 7.9 L 01/03/19 05:00: PT 11.4, INR 1.11 H, APTT 84.0 H* D I & O for Last 24 hours: Intake & Output 12/31/18 01/01/19 01/02/19 01/03/19 11:59 11:59 11:59 11:59 Intake Total 1316 / 1316 1807 / 1807 Output Total 2099 / 2099 1250 / 1250 Balance -784 / -784 557 / 557 Weight 260 lb 2.327 oz 268 lb Narrative: Patient looks like he feels worse than he did yesterday. His eye nursing home shut. He is attempting to eat breakfast. Lungs revealed poor aeration with some expiratory wheezes heard bilaterally left more audible than right. Heart an irregularly irregular rate and rhythm. Assessment and Plan (1) Acute respiratory failure with hypoxia Current visit: Yes Status: Acute Category: Medical Code(s): J96.01 - Acute respiratory failure with hypoxia (2) Bilateral pneumonia Current visit: Yes Status: Acute Qualifiers: Pneumonia type: due to unspecified organism Lung location: unspecified part of lung Qualified Code(s): J18.9 - Pneumonia, unspecified organism Category: Medical Code(s): J18.9 - Pneumonia, unspecified organism (3) Pulmonary emboli Current visit: Yes Status: Acute Qualifiers: Pulmonary embolism type: unspecified Chronicity: acute Acute cor pulmonale presence: with acute cor pulmonale Qualified Code(s): I26.09 - Other pulmonary embolism with acute cor pulmonale Category: Medical Code(s): I26.99 - Other pulmonary embolism without acute cor pulmonale (4) A-fib Current visit: No Status: Acute Category: Medical Code(s): I48.91 - Unspecified atrial fibrillation (5) Gastric carcinoma Current visit: Yes Status: Acute Category: Medical Code(s): C16.9 - Malignant neoplasm of stomach, unspecified - Assessment and plan all Dx Assessment and Plan for all problems:: Continue current care with monitoring and H&H. Patient's prognosis is poor. Pneumonia to be improving. Adjustments been made to Ativan and morphine dosing to help provide relief from dyspnea or pain or anxiety.
--- NOTE | 2019-01-03 07:44 | P.PN_ITS ---
Internal Medicine - PN: Subj *Date: 01/03/19 *Time: 07:40 Interval history: Nursing staff as patient had a rough night. He woke multiple times complaining of shortness of breath even with use of BiPAP. This morning he does feel some short of breath. He denies pain. Nursing staff reports patient's been moaning in bed a lot. I have seen him exhibit this behavior before when he feels bad. His granddaughter at bedside. Exam Vital signs and Labs for Last 24 Hours: Temp Pulse Resp BP Pulse Ox 97.9 F 99 H 22 101/76 L 96 01/03/19 05:20 01/03/19 06:20 01/03/19 04:18 01/03/19 06:00 01/03/19 06:00 Laboratory Results - last 24 hr 01/02/19 10:07: APTT 71.6 H* D 01/02/19 14:10: APTT 64.8 H* 01/02/19 18:15: Hgb 9.3 L, Hct 30.7 L 01/02/19 22:13: APTT 75.9 H* D 01/03/19 05:00: WBC 7.9, RBC 3.70 L, Hgb 9.7 L, Hct 32.1 L, MCV 86.9, MCH 26.1 L , MCHC 30.1 L, RDW 22.1 H, Plt Count 247, MPV 8.6, Neut % (Auto) 94.5 H, Lymph % (Auto) 2.1 L, [place] % (Auto) 3.0, Eos % (Auto) 0.2, Baso % (Auto) 0.1, Neut # (Auto) 7.5, Lymph # (Auto) 0.2 L, [place] # (Auto) 0.2, Eos # (Auto) 0.0, Baso # (Auto) 0.0, Total Counted 100, Neutrophils % (Manual) 90 H, Band Neutrophils % 7.0, Lymphocytes % (Manual) 3 L, Platelet Estimate Normal, Polychromasia 1+, Hypochromasia 2+, Anisocytosis 2+, Rouleaux 2+ 01/03/19 05:00: Sodium 139, Potassium 4.7, Chloride 102, Carbon Dioxide 33 H, Anion Gap 8.7, BUN 31 H D, Creatinine 0.75, Estimated Creat Clear 108, Estimated GFR 101, Est GFR ( Amer) 123, Glucose 182 H, Calcium 7.9 L 01/03/19 05:00: PT 11.4, INR 1.11 H, APTT 84.0 H* D I & O for Last 24 hours: Intake & Output 12/31/18 01/01/19 01/02/19 01/03/19 11:59 11:59 11:59 11:59 Intake Total 1316 / 1316 1807 / 1807 Output Total 2099 / 2099 1250 / 1250 Balance -784 / -784 557 / 557 Weight 260 lb 2.327 oz 268 lb Narrative: Patient looks like he feels worse than he did yesterday. His eye intermediate shut. He is attempting to eat breakfast. Lungs revealed poor aeration with some expiratory wheezes heard bilaterally left more audible than right. Heart an irregularly irregular rate and rhythm. Assessment and Plan (1) Acute respiratory failure with hypoxia Current visit: Yes Status: Acute Category: Medical Code(s): J96.01 - Acute respiratory failure with hypoxia (2) Bilateral pneumonia Current visit: Yes Status: Acute Qualifiers: Pneumonia type: due to unspecified organism Lung location: unspecified part of lung Qualified Code(s): J18.9 - Pneumonia, unspecified organism Category: Medical Code(s): J18.9 - Pneumonia, unspecified organism (3) Pulmonary emboli Current visit: Yes Status: Acute Qualifiers: Pulmonary embolism type: unspecified Chronicity: acute Acute cor pulmonale presence: with acute cor pulmonale Qualified Code(s): I26.09 - Other pulmonary embolism with acute cor pulmonale Category: Medical Code(s): I26.99 - Other pulmonary embolism without acute cor pulmonale (4) A-fib Current visit: No Status: Acute Category: Medical Code(s): I48.91 - Unspecified atrial fibrillation (5) Gastric carcinoma Current visit: Yes Status: Acute Category: Medical Code(s): C16.9 - Malignant neoplasm of stomach, unspecified - Assessment and plan all Dx Assessment and Plan for all problems:: Continue current care with monitoring and H&H. Patient's prognosis is poor. Pne
--- NOTE | 2019-01-03 08:03 | PC.NURSE ---
md stated to bring patient out of stepdown and place on a portable monitor so that readings were not displayed in room. will continue to monitor patient rhythm and o2
--- NOTE | 2019-01-03 08:43 | PC.NURSE ---
pharmacy called and stated to turn heparin drip down to 30ml/hr. this was turned down at this time
[2019-01-03 09:15] LABS: Vancomycin,Trough 13.6 mcg/ml (10.0-20.0)
--- NOTE | 2019-01-03 14:49 | HMH.PHACONS ---
- Pharmacy Consult Date: 01/03/19 Time: 14:49 Referring provider: DR. MERAZ Reason for Consult:: VANCOMYCIN LEVEL Allergies and ADEs:: Allergies Allergy/AdvReac Type Severity Reaction Status Date / Time Penicillins Allergy Unknown UNKNOWN Verified 01/01/19 21:49 Home Medications:: Home Medications Medication Instructions Recorded Confirmed Type Atorvastatin Calcium [Atorvastatin 40 mg PO HS 09/08/18 01/01/19 History 80mg Tab] Famotidine [Acid Controller] 20 mg PO BID 09/08/18 01/01/19 History Fenofibrate,Micronized [Tricor 134 mg PO DAILY 09/08/18 01/01/19 History 134mg] Furosemide [Furosemide 20mg Tab] 20 mg PO DAILYP PRN 09/08/18 01/01/19 History Lisinopril [Lisinopril 10mg Tab] 5 mg PO HS 09/08/18 01/01/19 History Metoprolol Tartrate [Lopressor 25 mg PO BID 09/08/18 01/01/19 History 25mg tablet] Montelukast Sodium [Montelukast 10 mg PO DAILY 09/08/18 01/01/19 History 10mg Tab] Omeprazole [Omeprazole 20mg 20 mg PO DAILY 09/08/18 01/01/19 History Capsule] Sour Koroma Extract [Tart Koroma 1,200 mg PO DAILY 09/08/18 01/01/19 History Extract] dilTIAZem HCl [Cartia Xt] 240 mg PO DAILY 09/08/18 01/01/19 History Loratadine [Allergy] 10 mg PO DAILY 10/30/18 01/01/19 History oxycodone 5 mg capsule 5 mg PO Q4-6H PRN 12/17/18 01/01/19 History Prochlorperazine Maleate 10 mg PO Q6HP PRN 12/21/18 01/01/19 History diphenhydrAMINE HCl [Benadryl] 50 mg PO Q6HP PRN 12/21/18 01/01/19 History predniSONE [Prednisone 5mg Tab 5 mg PO UD DOSE PK 12/31/18 01/01/19 History Dose-Pack] Docusate Sodium [Colace 250mg 250 mg PO DAILY 01/01/19 01/01/19 History capsule] Ondansetron HCl [Ondansetron 4mg 4 mg PO Q8HP PRN 01/01/19 01/01/19 History Tablet] PACLitaxel [Taxol 100mg/16.7mL 200 mg IV WEEKLY 01/02/19 01/02/19 History vial] Height: 1.85 m Weight: 121.563 kg Laboratory Results:: Laboratory Results - last 24 hr 01/02/19 14:10: APTT 64.8 H* 01/02/19 18:15: Hgb 9.3 L, Hct 30.7 L 01/02/19 22:13: APTT 75.9 H* D 01/03/19 05:00: WBC 7.9, RBC 3.70 L, Hgb 9.7 L, Hct 32.1 L, MCV 86.9, MCH 26.1 L, MCHC 30.1 L, RDW 22.1 H, Plt Count 247, MPV 8.6, Neut % (Auto) 94.5 H, Lymph % (Auto) 2.1 L, [place] % (Auto) 3.0, Eos % (Auto) 0.2, Baso % (Auto) 0.1, Neut # (Auto) 7.5, Lymph # (Auto) 0.2 L, [place] # (Auto) 0.2, Eos # (Auto) 0.0, Baso # (Auto) 0.0, Total Counted 100, Neutrophils % (Manual) 90 H, Band Neutrophils % 7.0, Lymphocytes % (Manual) 3 L, Platelet Estimate Normal, Polychromasia 1+, Hypochromasia 2+, Anisocytosis 2+, Rouleaux 2+ 01/03/19 05:00: Sodium 139, Potassium 4.7, Chloride 102, Carbon Dioxide 33 H, Anion Gap 8.7, BUN 31 H D, Creatinine 0.75, Estimated Creat Clear 108, Estimated GFR 101, Est GFR ( Amer) 123, Glucose 182 H, Calcium 7.9 L 01/03/19 05:00: PT 11.4, INR 1.11 H, APTT 84.0 H* D 01/03/19 08:52: Vancomycin Trough 13.6 Medical History: Reports:: Atrial Fibrillation, Cancer (Gastric Carcinoma), Congestive Heart Failure, Coronary Artery Disease, Cerebrovascular Accident, Gastroesophageal Reflux Disease(GERD), Gastrointestinal Bleed, Hyperlipidemia, Hypertension, Myocardial Infarction Denies:: Chronic Obstructive Pulmonary Disease (COPD), Diabetes Mellitus Type 1, Diabetes Mellitus Type 2, MRSA, Seizures Assessment and Plan (1) Acute respiratory failure with hypoxia Current visit: Yes Status: Acute Category: Medical Code(s): J96.01 - Acute respiratory failure with hypoxia (2) Bilateral pneumonia Current visit: Yes Status: Acute Qualifiers: Pneumonia type: due to unspecified organism Lung location: unspecified part of lung Qualified Code(s): J18.9 - Pneumonia, unspecified organism Category: Medical Code(s): J18.9 - Pneumonia, unspecified organism (3) Pulmonary emboli Current visit: Yes Status: Acute Qualifiers: Pulmonary embolism type: unspecified Chronicity: acute Acute cor pulmonale presence: with acute cor pulmonale Qualified Code(s): I26.09 -
--- NOTE | 2019-01-03 20:20 | PC.NURSE ---
Addendum entered by Pam Leggett RN 01/03/19 20:27: REPORT GIVEN TO DANIEL PAREKH Original Note: PATIENT HAS HAD AN OKAY DAY. HAS REQUIRED MORPHINE TWICE THIS SHIFT ONCE FOR SHORTNESS OF BREATH AND ANOTHER TIME FOR PAIN. PATIENT DROPS IN 70S WHEN ON VAPOTHERM AND REMAINS IN 90S ON THE BIPAP. SOME WHEEZES AND CRACKLES NOTED. DID DRINK MULTIPLE ENSURES THIS SHIFT AND ATE SOME. DID NOT GET UP TO SIDE OF BED. HAS FELT COOL AT TIMES BUT NO COMPLAINTS. MULTIPLE FAMILY AT BEDSIDE. REPORT GIVEN TO GRAHAM PAREKH. BENTON HOLLOWAY CALLED AND STATED TO TURN HEPARIN DRIP UP TO 32ML/HR. THIS WAS DONE AT 1800.
--- NOTE | 2019-01-03 22:35 | PC.NURSE ---
AT ABOUT 2230 PT NOTED RESTLESS AND YELLING HELP ME , RN ENTERED ROOM, BIPAP TUBING WAS UNATTACHED FROM BIPAP MASK. BIPAP TUBING REATTACHED AND ATIVAN ADMINISTERED PER JAN. WHILE IN ROOM, STAFF NOTED MONCADA CATHETER TUBING TO HAVE BLOODY DRAINAGE (DIFFERENT FROM INITIAL ASSESSMENT PERFORMED, ON INITIAL ASSESSMENT URINE NOTED IN CATHETER YELLOW AND CLEAR.) AT THIS TIME, MONCADA CATHETER PATENT AND DRAINING, BRIGHT RED BLOOD. VITALS OBTAINED, NOTED WNL. FOLLOWING THIS FINDING, HANS WAS NOTIFIED OF BRIGHT RED BLOOD NOTED IN MONCADA CATHETER AND PT BEING ON HEPARIN GTT AND COUMADIN WAS RESTARTED, HANS CAME UP TO ASSESS PT'S MONCADA CATH SITE. HANS NOTIFIED MD OF PT'S VITALS, INFUSING HEPARIN GTT AND HOW PT RECEIVED COUMADIN PER DAY SHIFT, AND NEW FINDING OF BLOODY DRAINAGE IN MONCADA CATHETER. HANS REPORTED TO THIS RN OBTAIN PTT NOW. ORDER WAS PLACED TO OBTAIN PTT AT 2257. MONCADA CATHETER SITE REASSESSED FOLLOWING RETRIEVING LABS. MONCADA CATHETER NOTED OCCLUDED. INSTRUCTED PT AND FAMILY NEED FOR BLADDER IRRIGATION. ADVISED PT OF BLADDER IRRIGATION COULD CAUSE SOME DISCOMFORT AND ADMINISTERED MORPHINE PRIOR TO IRRIGATING. ATTEMPTED TO IRRIGATE BLADDER WITH BULB SYRINGE AND STERILE WATER, BULB SYRINGE WAS UNSUCCESSFUL. ATTEMPTED TO IRRIGATE BLADDER WITH STERILE WATER PER A PISTON SYRINGE. 50 ML OF STERILE WATER FLUSHED INTO CATHETER TUBING AND PULLED BACK ON SYRINGE, NO FLOW BACK OF URINE/BLOOD/WATER NOTED. ATTEMPTED TO DISCONNECT PISTON SYRINGE FROM MONCADA CATHETER AND PALPATE BLADDER, STILL NOT FLOW BACK OF URINE/BLOOD/WATER. DR. DIETRICH NOTIFIED PER HANS, WAS INSTRUCTED TO DISCONTINUE MONCADA CATHETER. BLOOD DRAINING FROM PENIS GAUZE AND MANUAL PRESSURE APPLIED TO PENIS UNTIL BLEEDING EASED UP. CHUX TUCKED BENEATH BUTTOCKS AND WRAPPED AROUND LINO AREA TO CATCH ANY FURTHER DRAINAGE. WILL CONTINUE TO MONITOR.
[2019-01-03 23:33] LABS: Activated Partial Thrombo Time 47.4 seconds (23.6-34.0)
--- NOTE | 2019-01-03 23:37 | PC.NURSE ---
SPOKE WITH NASRIN, PHARMACIST IN REGARDS TO PTT RESULTS AND HEPARIN GTT. PHARMACIST MADE AWARE OF BLEEDING NOTED IN MONCADA CATHETER AND CATHETER BEING OCCLUDED AT THIS TIME WITH BLOOD CLOT, ATTEMPTED TO IRRIGATE ONCE, UNSUCCESSFUL WAS GOING TO ATTEMPT IRRIGATION AGAIN. PER Dwayne HOLLOWAY IF YOU ARE ABLE TO GET IT IRRIGATED OKAY AND SEE THAT THE URINE IS FURNITURE REPRODUCER IN COLOR AND THE BLOOD HAS STOPPED AFTER A HOUR OF SUCCESSFUL IRRIGATION, GO AHEAD AND INCREASE GTT TO 33 ML/HR. IF BLOOD HAS NOT EASED UP, CALL DR DIETRICH TO SEE WHAT HIS OPINION IS AND TALK IT OUT WITH HIM.
[2019-01-04] VITALS (17 sets, daily range): BP systolic 117–133; BP diastolic 49–71; PULSE 77–101; RESP 16–31; TEMP 36.2–36.9; O2SAT 92–97; BMI 35.9; BMI 36.7
--- NOTE | 2019-01-04 00:45 | PC.NURSE ---
ATTEMPTED TO CALL DR. DIETRICH IN REGARDS TO HEPARIN GTT. AWAITING RESPONSE BACK.
--- NOTE | 2019-01-04 04:59 | PC.NURSE ---
pt A&O x 3. pt was up most of the night with complaining of SOA. pt was very anxious and stated im not getting enough air. pt was 95% O2 sat on the monitor and BiPap was functioning properly. pt was repositioned and PRN anxiety meds were administered. on reassessment pt stated feeling relieved and was noted resting in bed. bilateral fine crackles were noted throughout per auscultation. pt was AFib on the heart monitor. pt's abdomen was soft without tenderness. pt stated its been a couple days since devin been able to have a BM. see previous notes about blood in the elizabeth catheter. post bladder irrigation and D/C of elizabeth catheter pt complained of groin pain at a 10 on a 0-10 pain scale. oxycodone was given per MAR. on reassessment pt stated his pain was a 4 on a 0-10 pain scale. pt was able to void on demand in urinal a scant amount but pt stated not feeling an urge to urinate. urine was pink tinged, bloody drainage still noted on the chux. an hour post elizabeth catheter removal pts chux were changed and noted with urine and bloody drainage with dime sized clots. oral temp was attempted at beginning of shift. pt didnt tolerate it well. pt became anxious and complained of SOA. pt was unable to be positioned to sitting up on the edge of the bed due to SOA at the beginning of shift during med pass. pt has a pink irritated area towards the bottom of his buttox. pt encouraged on repositioning. pt did well with turning/ repositioning in bed independently. port patent CDI with no signs and symptoms of infection. vss will continue to monitor.
[2019-01-04 05:32] LABS: Basophils % 0.2 % (0.1-2.0); Eosinophils % 0.2 % (0.1-12.0); Hematocrit 32.4 % (42.0-52.0); Hemoglobin 9.8 g/dL (14.1-18.0); Lymphocytes # 0.1 K/mm3 (0.7-4.5); Lymphocytes % 3.2 % (10-50); Mean Corpuscular HGB Conc 30.2 g/dL (31.8-35.4); Mean Corpuscular Hemoglobin 26.5 pg (27.0-31.2); Mean Corpuscular Volume 87.9 fl (80-94); Mean Platelet Volume 8.1 fl (7.4-10.4); Monocytes # 0.2 K/mm3 (0.1-1.0); Monocytes % 3.3 % (1.7-9.3); Neutrophils # 4.4 K/mm3 (1.8-7.8); Neutrophils % 93.2 % (37.0-80.0); Platelet Count 246 K/mm3 (142-424); Red Blood Count 3.68 M/mm3 (4.60-6.20); Red Cell Distribution Width 22.6 % (11.5-17.5); White Blood Count 4.7 K/mm3 (4.8-10.8)
[2019-01-04 05:35] LABS: MANUAL DIFFERENTIAL MANUAL DIFFERENTIAL (MANUAL DIFF)
[2019-01-04 05:38] LABS: Anion Gap 10.1 mEq/L (5-15); Blood Urea Nitrogen 39 mg/dL (7-18); Calcium 8.2 mg/dL (8.5-10.1); Carbon Dioxide 34 mmol/L (21.0-32.0); Chloride 102 mmol/L (98-107); Creatinine Clearance Estimated 109 mL/min (50-200); Creatinine,Serum 0.72 mg/dL (0.70-1.30); Estimated Glomerular Filt Rate 106 ml/min (>60); GFR (African American) 128 ML/MIN (>60); Glucose 194 mg/dL (74-106); Potassium 5.1 mmoL/L (3.5-5.1); Sodium 141 mmol/L (136-145)
[2019-01-04 05:39] LABS: Hypochromasia 3+; INR 1.21 (0.9-1.1); Lymphocytes % 5 % (10-50); Macrocytosis 1+; Neutrophils % 86 % (42-76); Platelet Estimate Normal; Poikilocytosis 1+; Polychromasia 2+; Prothrombin Time 12.4 seconds (9.4-11.8); Rouleaux 1+; Total Cells Counted 100
[2019-01-04 05:40] LABS: Anisocytosis 3+
--- NOTE | 2019-01-04 06:55 | XR_ITS ---
XR chest portable HISTORY: Known bilateral pneumonia ITS.REASON: pneumonia progress study ORDERING PHYSICIAN: Blayne Gonzalez MD PATIENT AGE: 78 years COMPARISON: Portable upright chest 01/03/2019 FINDINGS: This is a poor inspiratory effort. Bilateral diffuse ill-defined pneumonic infiltrates are again seen though there has been some slight increased aeration at the left base and in the right upper lobe. However significant infiltrates remain primarily in a perihilar regions. The Mediport catheter is again seen with the tip in the SVC above the right atrium. There is no definite pleural fluid. IMPRESSION: Poor inspiration however I suspect there has been some slight interval improvement in the bilateral diffuse pneumonic infiltrates
--- NOTE | 2019-01-04 07:28 | HMH.ACPN2 ---
Internal Medicine - PN: Subj *Date: 01/04/19 *Time: 07:28 Interval history: Patient believes he is feeling a little bit better this morning. He had a rough night as his Rowley catheter was removed yesterday evening due to some blood in the Rowley catheter and discomfort. Patient is able to urinate voluntarily. He denies pain this morning L did wire pain medication for groin pain developed overnight. Patient is currently laying in bed on BiPAP. Exam Vital signs and Labs for Last 24 Hours: Temp Pulse Resp BP Pulse Ox 98.5 F 87 22 118/69 95 01/04/19 04:04 01/04/19 05:58 01/04/19 04:04 01/04/19 04:04 01/04/19 04:04 Laboratory Results - last 24 hr 01/03/19 08:52: Vancomycin Trough 13.6 01/03/19 17:26: APTT 48.0 H D 01/03/19 22:57: APTT 47.4 H 01/04/19 05:20: WBC 4.7 L D, RBC 3.68 L, Hgb 9.8 L, Hct 32.4 L, MCV 87.9, MCH 26.5 L, MCHC 30.2 L, RDW 22.6 H, Plt Count 246, MPV 8.1, Neut % (Auto) 93.2 H, Lymph % (Auto) 3.2 L, [place] % (Auto) 3.3, Eos % (Auto) 0.2, Baso % (Auto) 0.2, Neut # (Auto) 4.4, Lymph # (Auto) 0.1 L, [place] # (Auto) 0.2, Eos # (Auto) 0.0, Baso # (Auto) 0.0, Total Counted 100, Neutrophils % (Manual) 86 H, Band Neutrophils % 9.0 H, Lymphocytes % (Manual) 5 L, Platelet Estimate Normal, Polychromasia 2+, Hypochromasia 3+, Poikilocytosis 1+, Anisocytosis 3+, Macrocytosis 1+, Rouleaux 1+ 01/04/19 05:20: Sodium 141, Potassium 5.1, Chloride 102, Carbon Dioxide 34 H, Anion Gap 10.1, BUN 39 H D, Creatinine 0.72, Estimated Creat Clear 109, Estimated GFR 106, Est GFR ( Amer) 128, Glucose 194 H, Calcium 8.2 L 01/04/19 05:20: PT 12.4 H, INR 1.21 H I & O for Last 24 hours: Intake & Output 01/01/19 01/02/19 01/03/19 01/04/19 11:59 11:59 11:59 11:59 Intake Total 1316 / 1316 2197 / 2197 1796 / 1796 Output Total 2100 / 2100 1250 / 1250 600 / 600 Balance -784 / -784 947 / 947 1196 / 1196 Weight 260 lb 2.327 oz 268 lb 271 lb 8 oz Microbiology Reports for the Last 24 Hours: Microbiology 01/01/19 17:45 Blood Blood Culture - Preliminary NO GROWTH AFTER 48 HOURS 01/01/19 17:45 Blood Blood Culture - Preliminary NO GROWTH AFTER 48 HOURS Narrative: BiPAP is in place. Patient does not her short of breath and appears more comfortable and he did get a afternoon. Exam reveals improved aeration of the lung. Still has diminished breath sounds on the right. Heart has an irregularly irregular rate and rhythm. Abdomen obese and soft. Assessment and Plan (1) Acute respiratory failure with hypoxia Current visit: Yes Status: Acute Category: Medical Code(s): J96.01 - Acute respiratory failure with hypoxia (2) Bilateral pneumonia Current visit: Yes Status: Acute Qualifiers: Pneumonia type: due to unspecified organism Lung location: unspecified part of lung Qualified Code(s): J18.9 - Pneumonia, unspecified organism Category: Medical Code(s): J18.9 - Pneumonia, unspecified organism (3) Pulmonary emboli Current visit: Yes Status: Acute Qualifiers: Pulmonary embolism type: unspecified Chronicity: acute Acute cor pulmonale presence: with acute cor pulmonale Qualified Code(s): I26.09 - Other pulmonary embolism with acute cor pulmonale Category: Medical Code(s): I26.99 - Other pulmonary embolism without acute cor pulmonale (4) A-fib Current visit: No Status: Acute Category: Medical Code(s): I48.91 - Unspecified atrial fibrillation (5) Gastric carcinoma Current visit: Yes Status: Acute Category: Medical Code(s): C16.9 - Malignant neoplasm of stomach, unspecified - Assessment and plan all Dx Assessment and Plan for all problems:: Patient seems to be slightly better today. We will see how his day goes and reassess this afternoon.
--- NOTE | 2019-01-04 07:29 | PC.NURSE ---
REPORT GIVEN TO Paige HUFF W/C
[2019-01-04 08:10] LABS: Activated Partial Thrombo Time 66.7 seconds (23.6-34.0)
--- NOTE | 2019-01-04 08:22 | PC.NURSE ---
0750: PT'S OXYGEN RANDOMLY DROPPED TO THE 70s. I GO TO ROOM, PT IS ON VAPOTHERM AT 100% CHECK SATS AND IT READS 74%. PLACE PT BACK ON BIPAP AND SATS BEGIN TO RISE BACK TO 90%
--- NOTE | 2019-01-04 08:32 | PC.NURSE ---
Addendum entered by Ronna Rojas RN 01/04/19 08:34: STATES HE WILL ORDER AROUND 1300 Original Note: I CALLED Dwayne HOLLOWAY TO MAKE SURE PT's aPPT WAS SEEN. PHARMACIST STATES HE HAS SEEN THE RESULT AND ADVISES TO KEEP THE HEPARIN DRIP GOING AT THE SAME RATE (1650UNITS/HR, 33ML/HR). PHARMACIST STATES HE WILL PLACE ORDER NEXT TIMED aPPT.
[2019-01-04 12:05] LABS: Activated Partial Thrombo Time 63.1 seconds (23.6-34.0)
--- NOTE | 2019-01-04 12:19 | PC.NURSE ---
PLACED PT ON BIPAP FOR LUNCH. PT DID NOT TOLERATE WELL. SATS DROPPED TO LOW TO MID 80s
--- NOTE | 2019-01-04 13:20 | DIET.NUTRFU ---
Nutrition assessment note has been completed by student jessica under my supervision. Patient diet will be supplemented with protein shakes and protein powders each meal.
[2019-01-04 18:22] LABS: Activated Partial Thrombo Time 71.4 seconds (23.6-34.0)
--- NOTE | 2019-01-04 19:19 | PC.NURSE ---
report given to tj. castillo
[2019-01-05] VITALS (14 sets, daily range): BP systolic 111–136; BP diastolic 61–79; PULSE 78–106; RESP 16–25; TEMP 35.9–36.7; O2SAT 92–96; BMI 37.3
[2019-01-05 01:47] LABS: Activated Partial Thrombo Time 109.7 seconds (23.6-34.0)
--- NOTE | 2019-01-05 02:01 | PC.NURSE ---
MIRIAM Yang phoned at 0150 with order to decrease Heparin drip to 28ml/hr, which was done, will continue monitoring.
--- NOTE | 2019-01-05 05:41 | PC.NURSE ---
Difficulty this shift keeping pt calm and stopping restlessness. Ativan and Morphine given per PRN orders. Bipap increased from 85 to 90%. When Ativan and Morphine are given at the same time, pt rests without moaning and or pulling at tele monitor, otherwise he is in constant movement. Lung harper unchanged from previous assessment, moving air, slightly diminished throughout with coarse crackles in RLL. Pt alert and can make needs known. Remained safe during my care, will continue monitoring.
--- NOTE | 2019-01-05 06:58 | PC.NURSE ---
Spoke with Susan in respiratory concerning pt's uncollected sputum culture. Susan reported the only way to get a collection would be to suction. Pt's anxiety level rises when just taking the mask off for oral care, unsure if pt could tolerate being suctioned.
[2019-01-05 07:01] LABS: Anion Gap 7.5 mEq/L (5-15); Blood Urea Nitrogen 46 mg/dL (7-18); Calcium 8.4 mg/dL (8.5-10.1); Carbon Dioxide 36 mmol/L (21.0-32.0); Chloride 103 mmol/L (98-107); Creatinine Clearance Estimated 111 mL/min (50-200); Creatinine,Serum 0.67 mg/dL (0.70-1.30); Estimated Glomerular Filt Rate 115 ml/min (>60); GFR (African American) 140 ML/MIN (>60); Glucose 195 mg/dL (74-106); Potassium 5.5 mmoL/L (3.5-5.1); Sodium 141 mmol/L (136-145)
--- NOTE | 2019-01-05 07:04 | PC.NURSE ---
Staff has been unable to obtain a sputum at this time, even though patient has been given several treatments.Patient has a non-productive cough.
[2019-01-05 07:08] LABS: Basophils % 0.4 % (0.1-2.0); Eosinophils % 0.2 % (0.1-12.0); Hematocrit 32.5 % (42.0-52.0); Hemoglobin 9.6 g/dL (14.1-18.0); Lymphocytes # 0.1 K/mm3 (0.7-4.5); Lymphocytes % 7.5 % (10-50); Mean Corpuscular HGB Conc 29.6 g/dL (31.8-35.4); Mean Corpuscular Hemoglobin 26.8 pg (27.0-31.2); Mean Corpuscular Volume 90.5 fl (80-94); Mean Platelet Volume 8.6 fl (7.4-10.4); Monocytes # 0.1 K/mm3 (0.1-1.0); Monocytes % 4.8 % (1.7-9.3); Neutrophils # 1.6 K/mm3 (1.8-7.8); Neutrophils % 87.1 % (37.0-80.0); Platelet Count 241 K/mm3 (142-424); Red Blood Count 3.59 M/mm3 (4.60-6.20); Red Cell Distribution Width 23.3 % (11.5-17.5); White Blood Count 1.8 K/mm3 (4.8-10.8)
[2019-01-05 07:12] LABS: INR 1.98 (0.9-1.1)
[2019-01-05 07:15] LABS: MANUAL DIFFERENTIAL MANUAL DIFFERENTIAL (MANUAL DIFF)
--- NOTE | 2019-01-05 07:22 | PC.NURSE ---
Shift report given to Bryan Bell RN, WBC count 1.8 - neutropenic precautions now in place, no other changes
--- NOTE | 2019-01-05 07:22 | HMH.ACPN2 ---
Internal Medicine - PN: Subj *Date: 01/05/19 *Time: 07:22 Interval history: Patient was quite restless overnight. FiO2 on his BiPAP was increased due to complaints of shortness of breath. This morning the patient awakens to vocal stimulus. He claims his breathing is a little better. Exam Vital signs and Labs for Last 24 Hours: Temp Pulse Resp BP Pulse Ox 97.4 F L 86 20 124/79 93 L 01/05/19 03:32 01/05/19 06:02 01/05/19 03:32 01/05/19 03:32 01/05/19 03:32 Laboratory Results - last 24 hr 01/04/19 05:25: APTT 66.7 H* D 01/04/19 11:40: APTT 63.1 H* 01/04/19 17:40: APTT 71.4 H* D 01/05/19 01:10: APTT 109.7 H* D 01/05/19 05:30: WBC 1.8 L* D, RBC 3.59 L, Hgb 9.6 L, Hct 32.5 L, MCV 90.5, MCH 26.8 L, MCHC 29.6 L, RDW 23.3 H, Plt Count 241, MPV 8.6, Neut % (Auto) 87.1 H, Lymph % (Auto) 7.5 L, [place] % (Auto) 4.8, Eos % (Auto) 0.2, Baso % (Auto) 0.4, Neut # (Auto) 1.6 L, Lymph # (Auto) 0.1 L, [place] # (Auto) 0.1, Eos # (Auto) 0.0, Baso # (Auto) 0.0 01/05/19 05:30: Sodium 141, Potassium 5.5 H, Chloride 103, Carbon Dioxide 36 H, Anion Gap 7.5, BUN 46 H, Creatinine 0.67 L, Estimated Creat Clear 111, Estimated GFR 115, Est GFR ( Amer) 140, Glucose 195 H, Calcium 8.4 L 01/05/19 05:30: PT 20.0 H, INR 1.98 H I & O for Last 24 hours: Intake & Output 01/02/19 01/03/19 01/04/19 01/05/19 11:59 11:59 11:59 11:59 Intake Total 1316 / 1316 2197 / 2197 2186 / 2186 1936 Output Total 2100 / 2100 1250 / 1250 600 / 600 Balance -784 / -784 947 / 947 1586 / 1586 1936 Weight 260 lb 2.327 oz 268 lb 271 lb 8 oz 275 lb 1 oz Narrative: He is wearing BiPAP. Breathing is mildly labored. He is able to answer options but quickly falls back asleep. Lungs have fair aeration anteriorly with bibasilar rales right greater than left. Heart rate is irregularly irregular. Abdomen is obese. Assessment and Plan (1) Acute respiratory failure with hypoxia Current visit: Yes Status: Acute Category: Medical Code(s): J96.01 - Acute respiratory failure with hypoxia (2) Bilateral pneumonia Current visit: Yes Status: Acute Qualifiers: Pneumonia type: due to unspecified organism Lung location: unspecified part of lung Qualified Code(s): J18.9 - Pneumonia, unspecified organism Category: Medical Code(s): J18.9 - Pneumonia, unspecified organism (3) Pulmonary emboli Current visit: Yes Status: Acute Qualifiers: Pulmonary embolism type: unspecified Chronicity: acute Acute cor pulmonale presence: with acute cor pulmonale Qualified Code(s): I26.09 - Other pulmonary embolism with acute cor pulmonale Category: Medical Code(s): I26.99 - Other pulmonary embolism without acute cor pulmonale (4) A-fib Current visit: No Status: Acute Category: Medical Code(s): I48.91 - Unspecified atrial fibrillation (5) Gastric carcinoma Current visit: Yes Status: Acute Category: Medical Code(s): C16.9 - Malignant neoplasm of stomach, unspecified (6) CHF (congestive heart failure) Current visit: Yes Status: Chronic Qualifiers: Heart failure type: diastolic Heart failure chronicity: chronic Qualified Code(s): I50.32 - Chronic diastolic (congestive) heart failure Category: Medical Code(s): I50.9 - Heart failure, unspecified - Assessment and plan all Dx Assessment and Plan for all problems:: 1. We will see how the patient's day goes as the patient may be showing signs of early decline. 2. Patient is mildly hyperkalemic so his lisinopril will be stopped and he will be given a liter of fluid. 3. Patient's white count has dropped now and he will be placed under neutropenic precautions
--- NOTE | 2019-01-05 07:39 | HMH.ACPN ---
Internal Medicine - PN: Subj *Date: 01/05/19 *Time: 07:39 Exam Vital signs and Labs for Last 24 Hours: Temp Pulse Resp BP Pulse Ox 97.4 F L 86 20 124/79 93 L 01/05/19 03:32 01/05/19 06:02 01/05/19 03:32 01/05/19 03:32 01/05/19 03:32 Laboratory Results - last 24 hr 01/04/19 05:25: APTT 66.7 H* D 01/04/19 11:40: APTT 63.1 H* 01/04/19 17:40: APTT 71.4 H* D 01/05/19 01:10: APTT 109.7 H* D 01/05/19 05:30: WBC 1.8 L* D, RBC 3.59 L, Hgb 9.6 L, Hct 32.5 L, MCV 90.5, MCH 26.8 L, MCHC 29.6 L, RDW 23.3 H, Plt Count 241, MPV 8.6, Neut % (Auto) 87.1 H, Lymph % (Auto) 7.5 L, [place] % (Auto) 4.8, Eos % (Auto) 0.2, Baso % (Auto) 0.4, Neut # (Auto) 1.6 L, Lymph # (Auto) 0.1 L, [place] # (Auto) 0.1, Eos # (Auto) 0.0, Baso # (Auto) 0.0 01/05/19 05:30: Sodium 141, Potassium 5.5 H, Chloride 103, Carbon Dioxide 36 H, Anion Gap 7.5, BUN 46 H, Creatinine 0.67 L, Estimated Creat Clear 111, Estimated GFR 115, Est GFR ( Amer) 140, Glucose 195 H, Calcium 8.4 L 01/05/19 05:30: PT 20.0 H, INR 1.98 H I & O for Last 24 hours: Intake & Output 01/02/19 01/03/19 01/04/19 01/05/19 23:59 23:59 23:59 23:59 Intake Total 2939 / 2939 1630 / 1630 2131 / 2131 936 / 936 Output Total 1350 / 1350 1200 / 1200 Balance 1589 / 1589 430 / 430 213 / 1 936 / 936 Weight 118 kg 121.563 kg 122.924 kg 124.766 kg Assessment and Plan (1) Acute respiratory failure with hypoxia Current visit: Yes Status: Acute Category: Medical Code(s): J96.01 - Acute respiratory failure with hypoxia (2) Bilateral pneumonia Current visit: Yes Status: Acute Qualifiers: Pneumonia type: due to unspecified organism Lung location: unspecified part of lung Qualified Code(s): J18.9 - Pneumonia, unspecified organism Category: Medical Code(s): J18.9 - Pneumonia, unspecified organism (3) Pulmonary emboli Current visit: Yes Status: Acute Qualifiers: Pulmonary embolism type: unspecified Chronicity: acute Acute cor pulmonale presence: with acute cor pulmonale Qualified Code(s): I26.09 - Other pulmonary embolism with acute cor pulmonale Category: Medical Code(s): I26.99 - Other pulmonary embolism without acute cor pulmonale (4) A-fib Current visit: No Status: Acute Category: Medical Code(s): I48.91 - Unspecified atrial fibrillation (5) Gastric carcinoma Current visit: Yes Status: Acute Category: Medical Code(s): C16.9 - Malignant neoplasm of stomach, unspecified (6) CHF (congestive heart failure) Current visit: Yes Status: Chronic Qualifiers: Heart failure type: diastolic Heart failure chronicity: chronic Qualified Code(s): I50.32 - Chronic diastolic (congestive) heart failure Category: Medical Code(s): I50.9 - Heart failure, unspecified The patient's infection will respond to the chosen ABx?: Yes Is the patient receiving the right drug, dose, and route?: Yes Could a more targeted ABx be ordered?: No
--- NOTE | 2019-01-05 07:41 | PC.NURSE ---
Received report from Codey Huffman RN
--- NOTE | 2019-01-05 08:45 | PC.NURSE ---
NURSE WAS NOTIFIED OF PTS TEMP 96.9 AXILARY. FAMILY DID NOT WANT RECTAL TEMP TAKEN AT THIS TIME.
[2019-01-05 09:20] LABS: Activated Partial Thrombo Time 111.3 seconds (23.6-34.0)
[2019-01-05 09:32] LABS: Lymphocytes % 5 % (10-50); Monocytes % 1 % (2-9); Neutrophils % 89 % (42-76); Platelet Estimate Normal; Total Cells Counted 100
[2019-01-05 09:33] LABS: Anisocytosis 2+; Hypochromasia 2+; Ovalocytes 1+
--- NOTE | 2019-01-05 10:56 | PC.NURSE ---
COURTESY ROUND NOW. PT IS ASLEEP WITH FAMILY AT BEDSIDE. FAMILY STATED NO NEEDS AT THIS TIME.
[2019-01-05 11:18] LABS: Activated Partial Thrombo Time 39.6 seconds (23.6-34.0)
[2019-01-05 15:51] LABS: Activated Partial Thrombo Time 88.6 seconds (23.6-34.0)
--- NOTE | 2019-01-05 16:46 | PC.NURSE ---
Pt is currently laying on his right side and is restless. He is A&O to himself only and is not able to verbalize his needs however is able to answer/follow simple commands. Lungs sounds throughout include ronchi and wheezing. Pt is on BiPap with and o2 is 96%. While being fed he uses the vapotherm 100% and gets shortness of breath very easy and o2 stats in the 80%. He is currently receiving 100ml/hr of NS through his R subclavian oly-cath and recieving heparin @ 28ml/hr via his R hand. Thus far pt has only recievied x1 prn dose of morphine and x1 dose of prn ativan. Family is at bedside and is in denial, request that pain meds are not given at this time and to encourage him to breath. Family feeds pt. Pt has eaten very little but had drank around 240. Thus far he has voided in his brief twice. Call light is within reach and will continue to observe.
--- NOTE | 2019-01-05 16:49 | INFXCTL.NOTE ---
NURSE WAS NOTIFIED 0F PTS RECTAL TEMP OF 96.6.
--- NOTE | 2019-01-05 18:20 | PC.NURSE ---
Addendum entered by Drea Canela CNA 01/05/19 19:54: Original Note: ASK PT FAMILY MEMBER ABOUT A BATH. FAMILY STATED PT IS RESTING. TO WAIT TIL CONSULTING NETWORKING ENGINEER. RN WAS NOTIFIED
--- NOTE | 2019-01-05 18:29 | PC.NURSE ---
Direct patient care given by Codey Abreu RN under the direct supervision of this nurse.
--- NOTE | 2019-01-05 19:02 | PC.NURSE ---
Report to be given to Codey Huffman RN
[2019-01-05 20:58] LABS: Activated Partial Thrombo Time 77.3 seconds (23.6-34.0)
[2019-01-06] VITALS: BP 117/49; PULSE 70; PULSE 97; RESP 23; TEMP 36.4; O2SAT 96
[2019-01-06 03:32] LABS: Activated Partial Thrombo Time 104.6 seconds (23.6-34.0)
--- NOTE | 2019-01-06 03:46 | PC.NURSE ---
MIRIAM Roman phoned at [phone] to report Heparin drip needed to be decreased from 28-26ml/hr, which was completed.
[2019-01-06 03:59] VITALS: RESP 16
[2019-01-06 04:00] VITALS: BP 104/45; PULSE 84; PULSE 90; RESP 24; TEMP 36.4; O2SAT 94
[2019-01-06 05:37] VITALS: BMI 36.5
--- NOTE | 2019-01-06 05:55 | PC.NURSE ---
Bipap continues with pt becoming more agitated with mask. Attempted to pull mask off several times. When spoke to him about why he was wanting to take it off, pt reported, Because I can't breathe. Discussed the bipap with him, made no further efforts at that time to pull it off. He moans with each exhale, son tells him not tp moan, reporting, Don't moan, when you moan you're not breathing. I explained he is moaning with exhalation not inhalation, unsure of the understanding results. remained at bedside all night, Breathe in and out so your lungs can heal. Unsure of current situation. Lung harper are diminished except in upper lobes with visible neck retractions noted, pt is pulling much harder this morning than previously noted on rounds. Pt reports no needs when asked shaking his head no to pain also. Family did not wish for him to be repositioned and allowed him to have ativan X2 and Morphine X1 thus far. Monitoring continues.
[2019-01-06 06:10] VITALS: PULSE 91; PULSE 93; RESP 16
[2019-01-06 06:15] LABS: Basophils % 0.3 % (0.1-2.0); Eosinophils % 0.3 % (0.1-12.0); Hematocrit 32.6 % (42.0-52.0); Hemoglobin 9.9 g/dL (14.1-18.0); Lymphocytes # 0.2 K/mm3 (0.7-4.5); Mean Corpuscular HGB Conc 30.3 g/dL (31.8-35.4); Mean Corpuscular Hemoglobin 27.2 pg (27.0-31.2); Mean Corpuscular Volume 89.8 fl (80-94); Mean Platelet Volume 9.1 fl (7.4-10.4); Monocytes # 0.1 K/mm3 (0.1-1.0); Monocytes % 4.1 % (1.7-9.3); Neutrophils # 1.2 K/mm3 (1.8-7.8); Neutrophils % 80.3 % (37.0-80.0); Platelet Count 257 K/mm3 (142-424); Red Blood Count 3.63 M/mm3 (4.60-6.20); Red Cell Distribution Width 22.4 % (11.5-17.5); White Blood Count 1.4 K/mm3 (4.8-10.8)
[2019-01-06 06:26] LABS: Anion Gap 4.5 mEq/L (5-15); Blood Urea Nitrogen 35 mg/dL (7-18); Calcium 8.3 mg/dL (8.5-10.1); Carbon Dioxide 38 mmol/L (21.0-32.0); Chloride 105 mmol/L (98-107); Creatinine Clearance Estimated 111 mL/min (50-200); Creatinine,Serum 0.63 mg/dL (0.70-1.30); Estimated Glomerular Filt Rate 124 ml/min (>60); GFR (African American) 150 ML/MIN (>60); Glucose 163 mg/dL (74-106); INR 2.51 (0.9-1.1); Potassium 5.5 mmoL/L (3.5-5.1); Prothrombin Time 25.2 seconds (9.4-11.8); Sodium 142 mmol/L (136-145)
--- NOTE | 2019-01-06 07:10 | HMH.ACPN2 ---
Internal Medicine - PN: Subj *Date: 01/06/19 *Time: 07:10 Interval history: Patient's condition has declined over the last 12 hours. His oxygen sats have decreased and he is more restless this a.m. His son states we almost lost him a few minutes ago. Son and are at bedside and voice they believe he is activel dying. Patient will open his eyes when name is called. He states he feels a little better. Exam Vital signs and Labs for Last 24 Hours: Temp Pulse Resp BP Pulse Ox 97.6 F 93 H 24 104/45 L 94 L 01/06/19 04:00 01/06/19 06:10 01/06/19 04:00 01/06/19 04:00 01/06/19 04:00 Laboratory Results - last 24 hr 01/05/19 05:30: WBC 1.8 L* D, RBC 3.59 L, Hgb 9.6 L, Hct 32.5 L, MCV 90.5, MCH 26.8 L, MCHC 29.6 L, RDW 23.3 H, Plt Count 241, MPV 8.6, Neut % (Auto) 87.1 H, Lymph % (Auto) 7.5 L, [place] % (Auto) 4.8, Eos % (Auto) 0.2, Baso % (Auto) 0.4, Neut # (Auto) 1.6 L, Lymph # (Auto) 0.1 L, [place] # (Auto) 0.1, Eos # (Auto) 0.0, Baso # (Auto) 0.0, Total Counted 100, Neutrophils % (Manual) 89 H, Band Neutrophils % 5.0, Lymphocytes % (Manual) 5 L, Monocytes % (Manual) 1 L, Platelet Estimate Normal, Hypochromasia 2+, Anisocytosis 2+, Ovalocytes 1+ 01/05/19 05:30: PT 20.0 H, INR 1.98 H 01/05/19 08:55: APTT 111.3 H* 01/05/19 10:50: APTT 39.6 H D 01/05/19 15:30: APTT 88.6 H* D 01/05/19 20:30: APTT 77.3 H* D 01/06/19 03:00: APTT 104.6 H* D 01/06/19 05:44: WBC 1.4 L*, RBC 3.63 L, Hgb 9.9 L, Hct 32.6 L, MCV 89.8, MCH 27.2, MCHC 30.3 L, RDW 22.4 H, Plt Count 257, MPV 9.1, Neut % (Auto) 80.3 H, Lymph % (Auto) 15.0, [place] % (Auto) 4.1, Eos % (Auto) 0.3, Baso % (Auto) 0.3, Neut # (Auto) 1.2 L, Lymph # (Auto) 0.2 L, [place] # (Auto) 0.1, Eos # (Auto) 0.0, Baso # (Auto) 0.0 01/06/19 05:44: PT 25.2 H, INR 2.51 H 01/06/19 05:44: Sodium 142, Potassium 5.5 H, Chloride 105, Carbon Dioxide 38 H, Anion Gap 4.5 L, BUN 35 H, Creatinine 0.63 L, Estimated Creat Clear 111, Estimated GFR 124, Est GFR ( Amer) 150, Glucose 163 H, Calcium 8.3 L I & O for Last 24 hours: Intake & Output 01/03/19 01/04/19 01/05/19 01/06/19 11:59 11:59 11:59 11:59 Intake Total 2197 / 2197 2186 / 2186 2207 / 2207 2933 / 2933 Output Total 1250 / 1250 600 / 600 Balance 947 / 947 1586 / 1586 2207 / 2207 2933 / 2933 Weight 268 lb 271 lb 8 oz 260 lb 2.327 oz 275 lb 6 oz Narrative: Breathing is more labored. Lung sounds are distant anteriorly with poor aeration. Rales are more prominent in the posterior lungs. HEart is irregularly irregular. Assessment and Plan (1) Acute respiratory failure with hypoxia Current visit: Yes Status: Acute Category: Medical Code(s): J96.01 - Acute respiratory failure with hypoxia (2) Bilateral pneumonia Current visit: Yes Status: Acute Qualifiers: Pneumonia type: due to unspecified organism Lung location: unspecified part of lung Qualified Code(s): J18.9 - Pneumonia, unspecified organism Category: Medical Code(s): J18.9 - Pneumonia, unspecified organism (3) Pulmonary emboli Current visit: Yes Status: Acute Qualifiers: Pulmonary embolism type: unspecified Chronicity: acute Acute cor pulmonale presence: with acute cor pulmonale Qualified Code(s): I26.09 - Other pulmonary embolism with acute cor pulmonale Category: Medical Code(s): I26.99 - Other pulmonary embolism without acute cor pulmonale (4) A-fib Current visit: No Status: Acute Category: Medical Code(s): I48.91 - Unspecified atrial fibrillation (5) Gastric carcinoma Current visit: Yes Status: Acute Category: Medical Code(s): C16.9 - Malignant neoplasm of stomach, unspecified (6) CHF (congestive heart failure) Current visit: Yes Status: Chronic Qualifiers: Heart failure type: diastolic Heart failure chronicity: chronic Qualified Code(s): I50.32 - Chronic diastolic (congestive) heart failure Category: Medical Code(s): I50.9 - Heart failure, unspecified (7) Neutropenia Current visit: Yes Stat
--- NOTE | 2019-01-06 07:13 | P.PN_ITS ---
Internal Medicine - PN: Subj *Date: 01/06/19 *Time: 07:10 Interval history: Patient's condition has declined over the last 12 hours. His oxygen sats have decreased and he is more restless this a.m. His son states we almost lost him a few minutes ago. Son and are at bedside and voice they believe he is activel dying. Patient will open his eyes when name is called. He states he feels a little better. Exam Vital signs and Labs for Last 24 Hours: Temp Pulse Resp BP Pulse Ox 97.6 F 93 H 24 104/45 L 94 L 01/06/19 04:00 01/06/19 06:10 01/06/19 04:00 01/06/19 04:00 01/06/19 04:00 Laboratory Results - last 24 hr 01/05/19 05:30: WBC 1.8 L* D, RBC 3.59 L, Hgb 9.6 L, Hct 32.5 L, MCV 90.5, MCH 26.8 L, MCHC 29.6 L, RDW 23.3 H, Plt Count 241, MPV 8.6, Neut % (Auto) 87.1 H, Lymph % (Auto) 7.5 L, [place] % (Auto) 4.8, Eos % (Auto) 0.2, Baso % (Auto) 0.4, Neut # (Auto) 1.6 L, Lymph # (Auto) 0.1 L, [place] # (Auto) 0.1, Eos # (Auto) 0.0, Baso # (Auto) 0.0, Total Counted 100, Neutrophils % (Manual) 89 H, Band Neutrophils % 5.0, Lymphocytes % (Manual) 5 L, Monocytes % (Manual) 1 L, Platelet Estimate Normal, Hypochromasia 2+, Anisocytosis 2+, Ovalocytes 1+ 01/05/19 05:30: PT 20.0 H, INR 1.98 H 01/05/19 08:55: APTT 111.3 H* 01/05/19 10:50: APTT 39.6 H D 01/05/19 15:30: APTT 88.6 H* D 01/05/19 20:30: APTT 77.3 H* D 01/06/19 03:00: APTT 104.6 H* D 01/06/19 05:44: WBC 1.4 L*, RBC 3.63 L, Hgb 9.9 L, Hct 32.6 L, MCV 89.8, MCH 27.2, MCHC 30.3 L, RDW 22.4 H, Plt Count 257, MPV 9.1, Neut % (Auto) 80.3 H, Lymph % (Auto) 15.0, [place] % (Auto) 4.1, Eos % (Auto) 0.3, Baso % (Auto) 0.3, Neut # (Auto) 1.2 L, Lymph # (Auto) 0.2 L, [place] # (Auto) 0.1, Eos # (Auto) 0.0, Baso # (Auto) 0.0 01/06/19 05:44: PT 25.2 H, INR 2.51 H 01/06/19 05:44: Sodium 142, Potassium 5.5 H, Chloride 105, Carbon Dioxide 38 H, Anion Gap 4.5 L, BUN 35 H, Creatinine 0.63 L, Estimated Creat Clear 111, Estimated GFR 124, Est GFR ( Amer) 150, Glucose 163 H, Calcium 8.3 L I & O for Last 24 hours: Intake & Output 01/03/19 01/04/19 01/05/19 01/06/19 11:59 11:59 11:59 11:59 Intake Total 2197 / 2197 2186 / 2186 2207 / 2207 2933 / 2933 Output Total 1250 / 1250 600 / 600 Balance 947 / 947 1586 / 1586 2207 / 2207 2933 / 2933 Weight 268 lb 271 lb 8 oz 260 lb 2.327 oz 275 lb 6 oz Narrative: Breathing is more labored. Lung sounds are distant anteriorly with poor aeration. Rales are more prominent in the posterior lungs. HEart is irregularly irregular. Assessment and Plan (1) Acute respiratory failure with hypoxia Current visit: Yes Status: Acute Category: Medical Code(s): J96.01 - Acute respiratory failure with hypoxia (2) Bilateral pneumonia Current visit: Yes Status: Acute Qualifiers: Pneumonia type: due to unspecified organism Lung location: unspecified part of lung Qualified Code(s): J18.9 - Pneumonia, unspecified organism Category: Medical Code(s): J18.9 - Pneumonia, unspecified organism (3) Pulmonary emboli Current visit: Yes Status: Acute Qualifiers: Pulmonary embolism type: unspecified Chronicity: acute Acute cor pulmonale presence: with acute cor pulmonale Qualified Code(s): I26.09 - Other pulmonary embolism with acute cor pulmonale Category: Medical Code(s): I26.99 - Other pulmonary embolism without acute cor pulmonale (4) A-fib Current visit: No Status: Acute Category: Medical Code(s): I48.91 - Unspecifie
--- NOTE | 2019-01-06 07:38 | PC.NURSE ---
Shift report given to Ladarius Tam RN.
--- NOTE | 2019-01-06 07:49 | PC.NURSE ---
Approximately 0645 pt took off bipap and refused to put it back on. Family put vapotherm on when I entered the room. Pt struggling to breathe and said, I don't want that. Sats dropped to 46% right away, up to 62% with vapotherm. Family able to talk pt into putting mask back on, pt slowly recovering into 80's%. Son calling family in to discuss further care. Monitoring continued.
[2019-01-06 08:00] VITALS: BP 107/67; PULSE 91; RESP 22; RESP 24; TEMP 36.4; O2SAT 87; O2SAT 94
--- NOTE | 2019-01-06 08:06 | PC.NURSE ---
Son came out into the hallway asking this nurse if they could take off the continuous pulse ox related to irritating the patient. This nurse told family that if they wanted to remove the pulse ox and the patient wanted it off that they could take it off just to notify staff when they do so.
--- NOTE | 2019-01-06 09:47 | SW/DCPLANNER ---
I have received a consult regarding Hospice for this patient. Patient information has been faxed to [facility] and I have spoke with Carol Salomon. Carol has stated that patient information has been received and she will work on reviewing information and sending a nurse to [facility] to evaluate this patient. Carol will follow up with me once a nurse is scheduled to come to [facility].
--- NOTE | 2019-01-06 10:42 | PC.NURSE ---
Patient's brother came out in hallway stating the patient had pulled his bipap off. Upon entering the room patient is anxious with shallow breathing. Attempted to put vapotherm on and patient ripped it off as well. Message sent to Dr. Gonzalez related to these events and seeing if there is anything else we can do to help patient be more comfortable. Patient is now wearing NC at 4L/min at this time. Patient states he does not want anything he is tired. at bedside and signed DNR stating she does not want him to hurt. Son, brother, daughter in law and grand daughter also at bedside at this time. Awaiting return call from Dr. Gonzalez. Hospice states that they are attempting to get here and it will be close to lunch or after before they can make it up here.
--- NOTE | 2019-01-06 10:59 | PC.NURSE ---
Rec'd return call from Dr. Gonzalez: Give 2mg Morphine IV now if patient is still restless then change Morphine to Morphine 4mg IV q1hr prn. Patient remains restless so 2mg of Morphine given. Family remains at bedside.
--- NOTE | 2019-01-06 13:11 | PC.NURSE ---
Message placed to Dr. Gonzalez. Family requesting staff to stop heparin drip, antibiotics and any other unnecessary medications. PRN Morphine given at family request stating patient is restless.
--- NOTE | 2019-01-06 13:40 | DIET.NUTRFU ---
Patient's condition has declined over the last 12 hours and a hospice consult will be placed per MD progress note. Pt refused to eat at last two meals. Pt is receiving protein fortified milkshakes at meals and 1 scoop protein powder in appropriate foods. Will continue with current plan of care and monitor.
--- NOTE | 2019-01-06 14:30 | PC.NURSE ---
patient family refused bath. per nurse leave patient rest. however patient turned and changed at this time.
--- NOTE | 2019-01-06 14:57 | SW/DCPLANNER ---
At 11:15AM today this patient was admitted to Hospice Care under inpatient status per Hospice nurse (Mike).
--- NOTE | 2019-01-06 15:34 | PC.NURSE ---
at 1510 Family stepped in hallway requesting this nurse to come check patient. Family states that they think he has passed. Upon entering the room patient's color had changed and no signs of life were noted by this nurse. No heart or lung sound noted. Spoke with Dr. Gonzalez who states he cannot get up here at the moment and to request ER MD to come to patient. Hospice nurse notified of patients passing.
--- NOTE | 2019-01-06 15:55 | PC.NURSE ---
Family states that they are ready for post mortem care and for the facility to call [facility]. Spoke with WICHO at 1542 Spoke with Glenda Estrada rule out for all donation ID number [id number].
--- NOTE | 2019-01-12 07:15 | HMH.DCSUM ---
General - General Admission date:: 01/01/19 Discharge date: 01/06/19 HPI HPI: 78 year old male with gastric carcinoma, restrictive lung disease, a-fib, htn presented to the ER with increased shortness of breath and chest congestion for 2 days that acutely worsened on the afternoon of admission. Patient was in respiratory distress in the ER and ultimately placed on bipap which improved oxygenation. Chest x-ray showed bilateral infiltrates vs. noncardiogenic pulmonary edema and a Chest CT showed infiltrates and bilateral pulmonary emboli. Patient has gastric carcinoma for which he is being treated with Taxol. This malignancy has caused 3 GI bleeds in the last 5 months that have required transfusions on at least one occasion(last week). Hospital Course Hospital Course: Patient was admitted with diagnosis of acute respiratory failure and bilateral pneumonia. Patient was placed on broad-spectrum antibiotics for his pneumonia. He required BiPAP to maintain O2 sats and even with BiPAP patient continued to complain of shortness of breath. For brief periods of time he could tolerate Vapotherm to provide oxygen, primarily while he was eating. On the day after admission discussion was had with the patient regarding wishes for his care. He was known to have gastric carcinoma which was known to be incurable and patient had recently started chemotherapy. I did recommend to the patient that he avoid intubation as I believe that he was intubated he would never be extubated due to his underlying medical problems. He agreed to this. In addition to his pneumonia he was found to have bilateral pulmonary embolisms which were going to require anticoagulation. He was started on a heparin drip on admission and warfarin. He remained on heparin until his INR was therapeutic. CBCs were monitored daily and while initially his hemoglobin decreased it held steady at around 9-1/2 remainder of hospitalization. This complicated his gastric carcinoma as well as his malignancy had caused GI bleeding on multiple occasions, with at least one occasion requiring transfusion. Treatment proceeded but patient did agree that should his condition worsen that goal of treatment would be comfort. In addition to antibiotics and anticoagulants patient was ordered frequent dosing of morphine and Ativan for agitation and breathlessness. Patient's hospital course varied and he seemingly alternated a day of apparent recovery followed by a day of regression. This was his pattern during the hospitalization. On the the patient's condition seemed to worsen and he was not showing signs of recovery. Requests for morphine and Ativan increased in frequency. On the morning of the patient agreed to go under the care of hospice as did family. Patient was made a DNR. Patient later in the day. Cause of is bilateral pneumonia and pulmonary embolisms with secondary cause of gastric carcinoma. Objective Vital signs: Temp Pulse Resp BP Pulse Ox 97.5 F L 91 H 22 107/67 L 94 L 01/06/19 08:00 01/06/19 08:00 01/06/19 08:00 01/06/19 08:00 01/06/19 08:00 DS: Diagnosis - Discharge Diagnosis (1) Acute respiratory failure with hypoxia Status: Acute (2) Bilateral pneumonia Status: Acute (3) Pulmonary emboli Status: Acute (4) A-fib Status: Acute (5) Gastric carcinoma Status: Acute (6) CHF (congestive heart failure) Status: Chronic (7) Neutropenia Status: Acute Discharge Plan - Patient Discharge Instructions Patient Instructions: Pulmonary Embolism, Pneumonia-Adult, DI for Pneumonia -- Adult, DI for Pulmonary Embolism, Coumadin Vitamin K/ Diet, Coumadin Therapy Booklet - Follow up Plan Disposition: Home Medications: Home Medications Medication Instructions Recorded Confirmed Type Atorvastatin Calcium [Atorvastatin 40 mg PO HS 09/08/18 01/01/19 History 80mg Tab] Famotidine [Acid Controller] 2
== END 2019-01-06 17:22 | disposition expired | DRG 193 ==
LOC: ER 17:48 → 2ND 20:16
PROVIDERS: Admitting Provider Emergency Medicine; Emergency Provider Emergency Medicine; PCP Family Medicine; Visit Provider Family Medicine
DX: J18.9 Pneumonia, unspecified organism (principal); J96.01 Acute respiratory failure with hypoxia; I26.09 Other pulmonary embolism with acute cor pulmonale; C16.9 Malignant neoplasm of stomach, unspecified; I50.32 Chronic diastolic (congestive) heart failure; I48.91 Unspecified atrial fibrillation; I11.0 Hypertensive heart disease with heart failure; I25.2 Old myocardial infarction; Z95.0 Presence of cardiac pacemaker; I25.10 Atherosclerotic heart disease of native coronary artery without angina pectoris; Z87.891 Personal history of nicotine dependence; Z79.899 Other long term (current) drug therapy; Z88.0 Allergy status to penicillin; J44.9 Chronic obstructive pulmonary disease, unspecified
CPT/HCPCS: 94660; 36415; 71045; 71275; 80048; 80053; 80202; 82803; 83605; 83880; 84484; 85007; 85014; 85018; 85025; 85610; 85730; 87040; 93005; 94640; 96365; 96367; 96375; 96413; 96415; 99285; J1439; J1642; J1956; J3370; J9267; Q0166